=== PATIENT | female | born 1990 | race Caucasian/White ===

== ENCOUNTER → 2017-08-28 | Outpatient (CLI) | payer OTHER ==
--- NOTE | 2017-08-28 13:05 | US ---
EXAMINATION TYPE: Transabdominal DATE OF EXAM: 08/01/17 COMPARISON: NONE CLINICAL HISTORY: O44.03 Placenta previa without hemorrhage...... assess placenta, patient had US 3 d ays prior at other facility that told her she had complete previa, no bleeding EXAM PERFORMED: OBTA EXAM MEASUREMENTS: GESTATIONAL AGE / DATING Physician Established: (13 weeks/3 days) EDC: 03/02/2018 Dates by LMP: (13 weeks/3 days) EDC: 03/02/2018 Dates by First Scan: [employer] here Dates by Current Scan for: (13 weeks/6 days) EDC: 02/27/2018 MATERNAL ANATOMY Uterus: 14.2 x 10.4 x 8.5cm Right Ovary: not seen due to enlarged UT and bowel gas Left Ovary: not seen due to enlarged UT and bowel gas Post CDS / Adnexa: wnl Presence of free fluid: no Presence of corpus luteal cyst: not seen Presence of subchorionic bleed: no GESTATION / SURVEY CRL: 7.8 (13 weeks/6 days) MSD: wnl Yolk Sac (normal less than 6mm): 0 Heart Rate: 159 bpm Rhythm: Normal IUP: Live IUP Date of LMP: 05/26/2017 Beta HcG (if available): not available assess early placenta and it does appear low lying terminating approximately 1.2 cm from the internal cervical os. IMPRESSION: 1. There is a low-lying anterior placenta approximately 1.2 cm from the internal cervical os. Recomme ndation is for follow-up ultrasound after 20 weeks to determine placenta previa. 2. Single live intrauterine with a sonographic age of 13 weeks and 6 days and estimated yuly e of delivery of 02/27/2018, concordant with menstrual age.
== END | disposition home or self-care (01) ==
LOC: RADUSWWP 12:25
PROVIDERS: ATTEND Family Medicine
DX: O44.42 Low lying placenta NOS or without hemorrhage, second trimester (principal); Z3A.20 20 weeks gestation of pregnancy
CPT/HCPCS: 76801

== ENCOUNTER 2017-09-11 21:02 | Observation (INO) | payer OTHER ==
[2017-09-11] MEDS ORDERED: LORazepam 2 MG/ML INJ IV PRN ×3 (22:21→22:25)
[2017-09-11] MEDS ORDERED: CALCIUM CARBONATE 500 MG CHEWABLE PO PRN (22:21)
[2017-09-11] MEDS ORDERED: ONDANSETRON 4 MG/2 ML VIAL IVP PRN (22:21)
[2017-09-11] MEDS ORDERED: NALOXONE 0.4 MG/ML 1 ML VIAL IV PRN (22:21)
[2017-09-11] MEDS ORDERED: LACTATED RINGERS 1,000 ML IV SCH (22:30)
[2017-09-11] MEDS: PANTOPRAZOLE 40 MG TABLET PO SCH (23:46)
[2017-09-11] MEDS: LACTATED RINGERS 1,000 ML IV SCH (23:46)
[2017-09-12] MEDS: PANTOPRAZOLE 40 MG TABLET PO SCH (08:24)
[2017-09-12] MEDS: LACTATED RINGERS 1,000 ML IV SCH (12:18)
--- NOTE | 2017-09-12 15:03 | P.CN ---
Psychiatric Consult - . Consult date: 09/12/17 Consult:: 09/12/17 14:54 Patient was seen for a psych consult regarding substance abuse. The chart does not have any information regarding reason for hospitalization, lab work or other investigation. According to the nurse patient was sent here from [facility] where she was admitted following taking too many Adderall. Patient says she has been prescribed Adderall 30 mg 3 times a day for the last about 5 years for ADHD symptoms. She also said she is here in the hospital because she had an acute anxiety attack since her uncle is having cancer. Apparently she has been taking him for the doctor's appointment and other therapies. She denies any other ongoing issues. She denies symptoms of anxiety , depression, manic episodes, perceptual problems etc. She however said she has been drinking about a fifth of liquor every day and for the last week she has been drinking only 1 or 2 beers a day. She denies she had any withdrawal symptoms. 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 They have a son who is going to be 4 years old in December. She also said she has to taper off Adderall and stop drinking so that she can be there for her son, has to send him to preschool before he goes to kindergarten etc. This is a white female who was seen in her bed. She is polite and cooperative. She does not show any psychomotor agitation or retardation. Her speech is spontaneous and goal-directed. She did not tell me anything about taking too many Adderall or going to [facility]. But she insists that she wants to get better and be there for her son. She adamantly denies suicide and homicide thoughts. She also denies hallucinations and delusional thinking. She is oriented with adequate memory concentration general knowledge etc. Assessment: Alcohol use disorder severe F 10.20. 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 Suggestion: Patient is very willing to have drug/alcohol rehab in an outpatient setting. A referral for the rehab would be helpful.
[2017-09-12] MEDS ORDERED: ACETAMINOPHEN TAB 325 MG TAB PO PRN (15:59)
[2017-09-12] MEDS ORDERED: MELATONIN 3 MG TABLET PO PRN (15:59)
[2017-09-12 16:08] LABS: Basophils # (A) 0.1 k/uL (0-0.2); Basophils % (A) 1 %; Eosinophils # (A) 0.1 k/uL (0-0.7); Eosinophils % (A) 2 %; HCT 38.1 % (34.0-46.0); HGB 13.2 gm/dL (11.4-16.0); Lymphocytes # (A) 1.8 k/uL (1.0-4.8); Lymphocytes % (A) 23 %; MCH 30.7 pg (25.0-35.0); MCHC 34.6 g/dL (31.0-37.0); MCV 88.8 fL (80.0-100.0); Mean Platelet Volume 6.9; Monocytes # (A) 0.4 k/uL (0-1.0); Monocytes % (A) 5 %; Neutrophils # (A) 5.5 k/uL (1.3-7.7); Neutrophils % (A) 69 %; Platelet Count 310 k/uL (150-450); RBC 4.29 m/uL (3.80-5.40); RDW 13.5 % (11.5-15.5)
[2017-09-12 16:31] LABS: ALT 42 U/L (9-52); AST 75 U/L (14-36); Alkaline Phosphatase 83 U/L (38-126); Anion Gap 14 mmol/L; Blood Urea Nitrogen 7 mg/dL (7-17); Calcium 9.1 mg/dL (8.4-10.2); Carbon Dioxide 22 mmol/L (22-30); Chloride 104 mmol/L (98-107); Glucose 106 mg/dL (74-99); Magnesium 1.7 mg/dL (1.6-2.3); Potassium 3.5 mmol/L (3.5-5.1); Sodium 140 mmol/L (137-145); Total Bilirubin 0.5 mg/dL (0.2-1.3); Total Protein 6.2 g/dL (6.3-8.2)
--- NOTE | 2017-09-12 16:40 | HP ---
HISTORY AND PHYSICAL DATE OF SERVICE: 09/12/17. PRESENT COMPLAINT: Alcohol and Adderall overdose. HISTORY OF PRESENTING COMPLAINT: This is a 27-year-old patient who follows with Dr. Gonzalez. The patient initially presented to [facility] ER from where the patient was transferred here for psychiatric evaluation. Story was that the patient has not been sleeping for a few days and patient's boyfriend, Wagner, gave her 100 mg of Benadryl. The patient did go to sleep for a short time, then became really agitated, hyperactive, confused, psychotic. The patient had taken 5 Adderall together, then she took another 10. The patient is prescribed 90 mg 2 times a day and the note from [facility] states that the patient had a refill on 09/06/17 for 90 tablets and 18 were left and apparently some of these were sold. The patient also drinking a 5th of alcohol a day. The patient is rather tearful during the interview and she is actually able to communicate. The patient did have an 4 days ago. The patient has been drinking alcohol since high school and wants to make things right with her boyfriend. The patient states she may be slightly anxious and depressed. Denies any suicidal ideation. The patient had eaten a bit earlier today. REVIEW OF SYSTEMS: CONSTITUTIONAL: None. HEENT: None. RESPIRATORY: None. CARDIOVASCULAR: No chest pain. GASTROINTESTINAL: Denies. GENITOURINARY: None. MUSCULOSKELETAL: None. DERMATOLOGICAL, HEMATOLOGIC, LYMPHATIC: None. PSYCHIATRY: Some anxiety, depression. NEUROLOGICAL: A bit hyperactive. PAST MEDICAL HISTORY: ADHD. PAST SURGICAL HISTORY: D and C, 4 days ago. SOCIAL HISTORY: The patient lives with a 3-year-old son, Tommie, and a boyfriend, Wagner. She was drinking alcohol about a 5th a day. Also was smoking cigarettes. FAMILY HISTORY: Depression, anxiety, spina bifida. HOME MEDICATIONS: Adderall 90 mg 3 times a day. ALLERGIES: None. PHYSICAL EXAMINATION: Temperature on presentation 100.1, pulse 90, respiratory 20, blood pressure 128/86, pulse ox 99% on room air. GENERAL APPEARANCE: Average build, sitting up, tearful, anxious. EYES: Pupils equal, conjunctivae normal. HEENT: External appearance of nose and ears normal. Oral cavity normal. NECK: JVD not raised. Mass not palpable. RESPIRATORY: Effort normal, lungs fair entry. CARDIOVASCULAR: 1st and 2nd sounds normal. No edema. ABDOMEN: Soft, nontender. Liver and spleen not palpable. LYMPHATIC: No lymph node palpable in the neck or axillae. PSYCHIATRY: Alert and oriented x3. Mood and affect anxious-appearing. NEUROLOGICAL: Pupils equal. Cranial nerves grossly intact. Power and sensation grossly intact. INVESTIGATIONS: The patient's blood work from [facility] showed a BUN of 9, creatinine 1.06, potassium of 3. ASSESSMENT: 1. Acute delirium multifactorial from medications including a combination of drinking alcohol and Adderall. 2. Acute Adderall toxicity, which is manifesting as amphetamine overdose with the patient having taken 5 together, then taking another 10 together and all the symptoms of restlessness a bit of hypersomnia, tachycardia all compatible with the same. Adderall half-life is about 10 hours and some is probably lingering in the system. 3. Chronic alcohol dependence. Patient drinks a 5th of alcohol every day. 4. Patient had an 4 days ago. 5. Anxiety disorder not otherwise specified. 6. Attention deficit hyperactivity disorder. PLAN: Psychiatry Dr. Edward was consulted. At this point, the patient will be kept on telemetry. Patient tolerating a diet, drinking good fluids. Patient did get IV fluids overnight and can be discontinued. We will have the computational chemist come and talk to the patient. We will see how the patient does. The patient is prescribed Ativan p.r.n. I will see if the patient needs any further intervention by psychiatrist before she leaves. Care was discussed with the patient. Encouraged to ambulate. MMODL / IJN: [id number] /
[2017-09-12 17:51] LABS: Creatine Kinase 4668 U/L (30-135)
[2017-09-12 22:46] VITALS: PULSE 91
[2017-09-13 07:19] VITALS: BP 130/80; RESP 19; TEMP 99.2
[2017-09-13] MEDS: PANTOPRAZOLE 40 MG TABLET PO SCH (12:57)
--- NOTE | 2017-09-21 07:17 | DS ---
DISCHARGE SUMMARY DATE OF ADMISSION: 09/11/2017 DATE OF DISCHARGE: 09/13/2017 FINAL DIAGNOSES: 1. Acute delirium from the intake of medications including Adderall and alcohol. 2. Acute Adderall toxicity manifesting as amphetamine overdose picture. 3. Chronic alcohol dependence. 4. Patient had an 4 days ago. 5. Anxiety disorder, not otherwise specified. 6. History of attention deficit hyperactivity disorder. HOSPITAL COURSE: This patient was transferred here from [facility] ER for psychiatric evaluation. Patient had not been sleeping well and patient's boyfriend gave her 100 mg Benadryl and she did not go to sleep and patient took 5 tablets of Adderall and another 10. Apparently, some were also sold. The patient also had been drinking a fifth vodka a day. The patient presented with amphetamine overdose like picture. The patient did say that she wanted to make things right with her boyfriend, was regretful about what had happened. The patient was seen by Dr. Edward from Psychiatry who said the patient should follow up with outpatient rehab. The patient was doing much better by the time of discharge, tolerating a diet, up and about. ON EXAMINATION: Lungs are clear. CARDIOVASCULAR: First and second sounds normal. PSYCH: The patient is much more sober and calm. The patient's Adderall was discontinued and the patient was doing well off of that. The patient to follow up with Dr. Gonzalez as an outpatient in 3 days. The patient was talked about following up with rehab. KIRTI / GERI: [id number] /
== END 2017-09-13 17:55 | disposition home or self-care (01) ==
LOC: 4MS4W 21:44 → INTOOBSV 22:23 → OBSVTOIN 22:23 → UNDODISIN 09-13 15:03
PROVIDERS: ADMIT Hospitalist; ATTEND Hospitalist
DX: T43.621A Poisoning by amphetamines, accidental (unintentional), initial encounter (principal); T51.0X1A Toxic effect of ethanol, accidental (unintentional), initial encounter; T45.0X1A Poisoning by antiallergic and antiemetic drugs, accidental (unintentional), initial encounter; Y92.009 Unspecified place in unspecified non-institutional (private) residence as the place of occurrence of the external cause; F10.20 Alcohol dependence, uncomplicated; F41.9 Anxiety disorder, unspecified; F90.9 Attention-deficit hyperactivity disorder, unspecified type; F32.9 Major depressive disorder, single episode, unspecified; F05 Delirium due to known physiological condition; F17.210 Nicotine dependence, cigarettes, uncomplicated; Z79.899 Other long term (current) drug therapy; Z81.8 Family history of other mental and behavioral disorders
CPT/HCPCS: 96374; 80053; 82550; 83735; 85025; G0379; G0378 ×3; J2060

== ENCOUNTER 2021-01-08 18:25 | Emergency (ER) | payer OTHER ==
[2021-01-08 18:44] VITALS: BP 153/85; PULSE 103; RESP 20; TEMP 98.1
[2021-01-08] MEDS ORDERED: SODIUM CHLORIDE 0.9% 1,000 ML IV ONE (19:16)
--- NOTE | 2021-01-08 19:20 | ED ---
General Adult HPI - General Chief complaint: Recheck/Abnormal Lab/Rx Stated complaint: not sure Time Seen by Provider: 01/08/21 18:53 Source: patient, family (aunt), RN notes reviewed Mode of arrival: ambulatory Limitations: no limitations - History of Present Illness Initial comments: This is a 30-year-old female who presents to the emergency room agitated. Patient's aunt is at the bedside states that the patient lives with her uncle and she locked him out of the home. She has been ranting and raving and screaming since yesterday. She's been not acting herself. She states "I don't feel right" but cannot explain what she is feeling. She states she wants us to "check me out completely". She states that she doesn't know if she is . She denies any abdominal pain or headaches but just keeps stating "I don't feel right". She denies any trauma. She denies any medical history. Her aunt is at the bedside states that she believes that this is a mental illness. Patient states that she does have mental illness that runs in her family. She denies any drug use. She does state that she drinks a beer a day and occasionally smokes cigarettes. She denies any homicidal or suicidal ideation. -: days(s) (1) Severity scale (1-10): 0 Treatments Prior to Arrival: none - Related Data Home Medications Medication Instructions Recorded Confirmed No Known Home Medications 01/08/21 01/08/21 Allergies Allergy/AdvReac Type Severity Reaction Status Date / Time ethinyl estradiol Allergy Unknown Verified 01/08/21 20:17 [From Loestrin 24 Fe] ferrous fumarate Allergy Unknown Verified 01/08/21 20:17 [From Loestrin 24 Fe] norethindrone acetate Allergy Unknown Verified 01/08/21 20:17 [From Loestrin 24 Fe] Review of Systems ROS Statement: Those systems with pertinent positive or pertinent negative responses have been documented in the HPI. ROS Other: All systems not noted in ROS Statement are negative. Past Medical History Past Medical History: No Reported History History of Any Multi-Drug Resistant Organisms: None Reported Past Surgical History: No Surgical Hx Reported Additional Past Surgical History / Comment(s): D&C Past Anesthesia/Blood Transfusion Reactions: No Reported Reaction Past Psychological History: No Psychological Hx Reported Smoking Status: Current every day smoker, Vaper Past Alcohol Use History: None Reported Past Drug Use History: None Reported - Past Family History Mother Additional Family Medical History / Comment(s): spina bifida, depression, anxiety General Exam Limitations: altered mental status (Patient is emotionally labile, argumentative and uncooperative in triage but calm at time of assessment) General appearance: alert, in no apparent distress Head exam: Present: atraumatic, normocephalic, normal inspection Eye exam: Present: normal appearance, PERRL, EOMI. Absent: scleral icterus, conjunctival injection, periorbital swelling Pupils: Present: normal accommodation ENT exam: Present: normal exam, normal oropharynx, mucous membranes moist Neck exam: Present: normal inspection, full ROM. Absent: tenderness, meningismus, lymphadenopathy, thyromegaly Respiratory exam: Present: normal lung sounds bilaterally. Absent: respiratory distress, wheezes, rales, rhonchi, stridor, chest wall tenderness, accessory muscle use, decreased breath sounds Cardiovascular Exam: Present: normal rhythm, tachycardia, normal heart sounds. Absent: systolic murmur, diastolic murmur, rubs, gallop, clicks GI/Abdominal exam: Present: soft, normal bowel sounds. Absent: distended, tenderness, guarding, rebound, rigid Extremities exam: Present: normal inspection, full ROM, normal capillary refill. Absent: tenderness, pedal edema, joint swelling, calf tenderness Back exam: Present: normal inspection, full ROM. Absent: tenderness, CVA tenderness (R), CVA tenderness (L), muscle spasm, paraspinal tenderness, vertebral tenderness, rash noted Neurological exam: Present: alert, oriented X3, CN II-XII intact Psychiatric exam: Present: agitated, manic Skin exam: Present: warm, dry, intact, normal color. Absent: rash, cyanosis, diaphoretic, petechiae, pallor Course Vital Signs 01/08/21 18:34 Temperature 98.1 F Pulse Rate 103 H Respiratory 20 Rate Blood Pressure 153/85 O2 Sat by Pulse 96 Oximetry EKG Findings - EKG Results: EKG: sinus rhythm (Ventricular rate of 76, MS interval of .146, QRS of 0.104, QTC of 0.459) Medical Decision Making - Medical Decision Making Patient's CBC and electrolytes are within normal limits. Blood glucose is 124. Her UA is negative for nitrates or leukocyte esterase. Her urine drug screen is negative. Her alcohol level is 197. Her coronavirus swab is not detected. Her EKG shows sinus rhythm troponin is negative at 0.012. Her chest x-ray shows no acute cardiopulmonary process. She does state she is feeling better but she is still agitated and quick to temper. She was directed to follow up with [facility] mental health which she was agreeable. This is likely agitation related to a mental health issue or alcohol abuse. She denies any suicidal or homicidal ideation. Her aunt is at the bedside and will also assist her with [facility] mental health services. I did discuss this case with Dr. Pope who is agreeable to this plan of care. - Lab Data Result diagrams: 01/08/21 19:55 01/08/21 19:55 Lab Results 01/08/21 01/08/21 01/08/21 Range/Units 19:55 19:55 19:55 WBC 7.5 (3.8-10.6) k/uL RBC 4.51 (3.80-5.40) m/uL Hgb 13.3 (11.4-16.0) gm/dL Hct 38.5 (34.0-46.0) % MCV 85.2 (80.0-100.0) fL MCH 29.4 (25.0-35.0) pg MCHC 34.5 (31.0-37.0) g/dL RDW 15.3 (11.5-15.5) % Plt Count 341 (150-450) k/uL MPV 6.6 Neutrophils % 72 % Lymphocytes % 21 % Monocytes % 4 % Eosinophils % 1 % Basophils % 1 % Neutrophils # 5.4 (1.3-7.7) k/uL Lymphocytes # 1.6 (1.0-4.8) k/uL Monocytes # 0.3 (0-1.0) k/uL Eosinophils # 0.1 (0-0.7) k/uL Basophils # 0.1 (0-0.2) k/uL Sodium 142 (137-145) mmol/L Potassium 3.4 L (3.5-5.1) mmol/L Chloride 104 (98-107) mmol/L Carbon Dioxide 27 (22-30) mmol/L Anion Gap 11 mmol/L BUN 8 (7-17) mg/dL Creatinine 0.64 (0.52-1.04) mg/dL Est GFR (CKD-EPI)AfAm >90 (>60 ml/min/1.73 sqM) Est GFR (CKD-EPI)NonAf >90 (>60 ml/min/1.73 sqM) Glucose 124 H (74-99) mg/dL Calcium 8.6 (8.4-10.2) mg/dL Total Bilirubin 0.5 (0.2-1.3) mg/dL AST 75 H (14-36) U/L ALT 27 (4-34) U/L Alkaline Phosphatase 123 (38-126) U/L Troponin I (0.000-0.034) ng/mL Total Protein 7.4 (6.3-8.2) g/dL Albumin 4.2 (3.5-5.0) g/dL Urine Color Yellow Urine Appearance Clear (Clear) Urine pH 6.5 (5.0-8.0) Ur Specific Rainier 1.010 (1.001-1.035) Urine Protein 1+ H (Negative) Urine Glucose (UA) Negative (Negative) Urine Ketones Negative (Negative) Urine Blood Negative (Negative) Urine Nitrite Negative (Negative) Urine Bilirubin Negative (Negative) Urine Urobilinogen <2.0 (<2.0) mg/dL Ur Leukocyte Esterase Negative (Negative) Urine WBC 4 (0-5) /hpf Ur Squamous Epith Cells 2 (0-4) /hpf Urine Bacteria Moderate H (None) /hpf Urine Mucus Moderate H (None) /hpf Urine HCG, Qual (Not Detectd) Urine Opiates Screen Not Detected (NotDetected) Ur Oxycodone Screen Not Detected (NotDetected) Urine Methadone Screen Not Detected (NotDetected) Ur Propoxyphene Screen Not Detected (NotDetected) Ur Barbiturates Screen Not Detected (NotDetected) U Tricyclic Antidepress Not Detected (NotDetected) Ur Phencyclidine Scrn Not Detected (NotDetected) Ur Amphetamines Screen Not Detected (NotDetected) U Methamphetamines Scrn Not Detected (NotDetected) U Benzodiazepines Scrn Not Detected (NotDetected) Urine Cocaine Screen Not Detected (NotDetected) U Marijuana (THC) Screen Not Detected (NotDetected) Serum Alcohol 197 mg/dL Coronavirus (PCR) (Not Detectd) 01/08/21 01/08/21 01/08/21 Range/Units 19:55 19:55 19:55 WBC (3.8-10.6) k/uL RBC (3.80-5.40) m/uL Hgb (11.4-16.0) gm/dL Hct (34.0-46.0) % MCV (80.0-100.0) fL MCH (25.0-35.0) pg MCHC (31.0-37.0) g/dL RDW (11.5-15.5) % Plt Count (150-450) k/uL MPV Neutrophils % % Lymphocytes % % Monocytes % % Eosinophils % % Basophils % % Neutrophils # (1.3-7.7) k/uL Lymphocytes # (1.0-4.8) k/uL Monocytes # (0-1.0) k/uL Eosinophils # (0-0.7) k/uL Basophils # (0-0.2) k/uL Sodium (137-145) mmol/L Potassium (3.5-5.1) mmol/L Chloride (98-107) mmol/L Carbon Dioxide (22-30) mmol/L Anion Gap mmol/L BUN (7-17) mg/dL Creatinine (0.52-1.04) mg/dL Est GFR (CKD-EPI)AfAm (>60 ml/min/1.73 sqM) Est GFR (CKD-EPI)NonAf (>60 ml/min/1.73 sqM) Glucose (74-99) mg/dL Calcium (8.4-10.2) mg/dL Total Bilirubin (0.2-1.3) mg/dL AST (14-36) U/L ALT (4-34) U/L Alkaline Phosphatase (38-126) U/L Troponin I <0.012 (0.000-0.034) ng/mL Total Protein (6.3-8.2) g/dL Albumin (3.5-5.0) g/dL Urine Color Urine Appearance (Clear) Urine pH (5.0-8.0) Ur Specific [place]ier (1.001-1.035) Urine Protein (Negative) Urine Glucose (UA) (Negative) Urine Ketones (Negative) Urine Blood (Negative) Urine Nitrite (Negative) Urine Bilirubin (Negative) Urine Urobilinogen (<2.0) mg/dL Ur Leukocyte Esterase (Negative) Urine WBC (0-5) /hpf Ur Squamous Epith Cells (0-4) /hpf Urine Bacteria (None) /hpf Urine Mucus (None) /hpf Urine HCG, Qual Not Detected (Not Detectd) Urine Opiates Screen (NotDetected) Ur Oxycodone Screen (NotDetected) Urine Methadone Screen (NotDetected) Ur Propoxyphene Screen (NotDetected) Ur Barbiturates Screen (NotDetected) U Tricyclic Antidepress (NotDetected) Ur Phencyclidine Scrn (NotDetected) Ur Amphetamines Screen (NotDetected) U Methamphetamines Scrn (NotDetected) U Benzodiazepines Scrn (NotDetected) Urine Cocaine Screen (NotDetected) U Marijuana (THC) Screen (NotDetected) Serum Alcohol mg/dL Coronavirus (PCR) Not Detected (Not Detectd) Disposition Clinical Impression: Alcohol abuse Disposition: HOME SELF-CARE Condition: Fair Additional Instructions: Please follow-up with community mental health for continuation of care. Find a primary care doctor. Return to the emergency room with any new or worsening symptoms. He thinks contact [facility] with stopping alcohol use. Is patient prescribed a controlled substance at d/c from ED?: No Referrals: Júnior Gonzalez MD [REFERRING] - 1-2 days Frank Avery DO [REFERRING] - 1-2 days Time of Disposition: 21:22
[2021-01-08 20:08] LABS: Basophils # (A) 0.1 k/uL (0-0.2); Basophils % (A) 1 %; Eosinophils # (A) 0.1 k/uL (0-0.7); Eosinophils % (A) 1 %; HCT 38.5 % (34.0-46.0); HGB 13.3 gm/dL (11.4-16.0); Lymphocytes # (A) 1.6 k/uL (1.0-4.8); Lymphocytes % (A) 21 %; MCH 29.4 pg (25.0-35.0); MCHC 34.5 g/dL (31.0-37.0); MCV 85.2 fL (80.0-100.0); Mean Platelet Volume 6.6; Monocytes # (A) 0.3 k/uL (0-1.0); Monocytes % (A) 4 %; Neutrophils # (A) 5.4 k/uL (1.3-7.7); Neutrophils % (A) 72 %; Platelet Count 341 k/uL (150-450); RBC 4.51 m/uL (3.80-5.40); RDW 15.3 % (11.5-15.5); WBC 7.5 k/uL (3.8-10.6)
[2021-01-08 20:20] LABS: Albumin 4.2 g/dL (3.5-5.0); Anion Gap 11 mmol/L; Carbon Dioxide 27 mmol/L (22-30); Chloride 104 mmol/L (98-107); Glucose 124 mg/dL (74-99); Potassium 3.4 mmol/L (3.5-5.1); Sodium 142 mmol/L (137-145); Total Protein 7.4 g/dL (6.3-8.2)
[2021-01-08 20:22] LABS: ALT 27 U/L (4-34); AST 75 U/L (14-36); African American GFR (CKD) >90 (>60 ml/min/1.73 sqM); Alkaline Phosphatase 123 U/L (38-126); Blood Urea Nitrogen 8 mg/dL (7-17); Calcium 8.6 mg/dL (8.4-10.2); Non-African American GFR(CKD) >90 (>60 ml/min/1.73 sqM); Total Bilirubin 0.5 mg/dL (0.2-1.3)
[2021-01-08 20:31] LABS: Appearance,Urine Clear (Clear); Bacteria,Urine Moderate /hpf; Bilirubin,Urine Negative (Negative); Blood,Urine Negative (Negative); Color,Urine Yellow; Glucose,Urine (UA) Negative (Negative); Ketones,Urine Negative (Negative); Leukocyte Esterase,Urine Negative (Negative); Mucus,Urine Moderate /hpf; Nitrite,Urine Negative (Negative); PH, Urine 6.5 (5.0-8.0); Protein,Urine 1+ (Negative); Squamous Epithelial Cell,Urine 2 /hpf (0-4); Urobilinogen,Urine <2.0 mg/dL (<2.0); WBC,Urine 4 /hpf (0-5)
[2021-01-08 20:40] LABS: Cocaine Screen,Urine Not Detected (NotDetected); Phencyclidine Screen,Urine Not Detected (NotDetected); Urn Cannabinoid Scrn Not Detected (NotDetected)
[2021-01-08 20:41] LABS: Amphetamine Screen,Urine Not Detected (NotDetected); Barbiturate Screen,Urine Not Detected (NotDetected); Benzodiazepines Screen,Urine Not Detected (NotDetected); Methadone Screen, Urine Not Detected (NotDetected); Opiate Screen,Urine Not Detected (NotDetected); Oxycodone Screen, Urine Not Detected (NotDetected); Tricyclic Antidepressant,Urine Not Detected (NotDetected)
[2021-01-08 20:46] LABS: Alcohol 197 mg/dL
--- NOTE | 2021-01-08 21:16 | XR ---
EXAMINATION TYPE: XR chest 2V DATE OF EXAM: 01/08/2021 CLINICAL HISTORY: altered mental status. TECHNIQUE: Frontal and lateral view of the chest. COMPARISON: None FINDINGS: Low lung volumes. The cardiomediastinal silhouette is within normal limits for size. Pulmon sheridan vasculature is normal. There is no focal air space opacity. No pleural effusion. No pneumothorax seen. No acute displaced osseous fracture. IMPRESSION: No acute cardiopulmonary process.
== END 2021-01-08 22:00 | disposition home or self-care (01) ==
LOC: EC 18:25
DX: F10.10 Alcohol abuse, uncomplicated (principal); F17.210 Nicotine dependence, cigarettes, uncomplicated; Y90.9 Presence of alcohol in blood, level not specified
CPT/HCPCS: 36415; 80053; 84484; 85025; 81001; 81025; 80306; 87635; 71046; 99285; G0480; 80320

== ENCOUNTER 2021-01-12 14:25 | Inpatient (IN) | payer MEDICAID, OTHER ==
--- NOTE | 2021-01-12 15:07 | ED ---
General Adult HPI - General Chief complaint: Anxiety Stated complaint: Seizure Time Seen by Provider: 01/12/21 14:30 Source: patient, family, RN notes reviewed, old records reviewed Mode of arrival: wheelchair Limitations: altered mental status - History of Present Illness Initial comments: This is a 30-year-old female who presents emergency Department eating that she's anxiety attack. According to family she's been very paranoid recently and thinks people are intending to hurt her and she is also made some comments about being suicidal. Patient really isn't talking to me much because she is so anxious at this time. Patient does however deny any physical complaints. Patient denies headache patient denies numbness weakness. Patient denies any chest pain difficulty breathing shortest breath per patient denies any fever chills or cough. Family stated that she was on the ground shaking for about 15 seconds and there was no period of time she was confused after she stopped shaking. Patient didn't seem thing in the room and when I raised my voice she stopped immediately. - Related Data Home Medications Medication Instructions Recorded Confirmed Ascorbic Acid [Vitamin C] 500 mg PO DAILY 01/12/21 01/12/21 Dextroamphetamine/Amphetamine 30 mg PO TID 01/12/21 01/12/21 [Dextroamp-Amphetamin 30 mg Tab] Allergies Allergy/AdvReac Type Severity Reaction Status Date / Time ethinyl estradiol Allergy Unknown Verified 01/12/21 16:51 [From Loestrin 24 Fe] ferrous fumarate Allergy Unknown Verified 01/12/21 16:51 [From Loestrin 24 Fe] norethindrone acetate Allergy Unknown Verified 01/12/21 16:51 [From Loestrin 24 Fe] Review of Systems ROS Statement: Those systems with pertinent positive or pertinent negative responses have been documented in the HPI. ROS Other: All systems not noted in ROS Statement are negative. Past Medical History Past Medical History: No Reported History History of Any Multi-Drug Resistant Organisms: None Reported Past Surgical History: No Surgical Hx Reported Additional Past Surgical History / Comment(s): D&C Past Anesthesia/Blood Transfusion Reactions: No Reported Reaction Past Psychological History: No Psychological Hx Reported Smoking Status: Current every day smoker, Vaper Past Alcohol Use History: None Reported Past Drug Use History: None Reported - Past Family History Mother Additional Family Medical History / Comment(s): spina bifida, depression, anxiety General Exam - General Exam Comments Initial Comments: GENERAL: Patient is well-developed and well-nourished. Patient is nontoxic and well- hydrated and is in mild distress. ENT: Neck is soft and supple. No significant lymphadenopathy is noted. Oropharynx is clear. Moist mucous membranes. Neck has full range of motion without eliciting any pain. EYES: The sclera were anicteric and conjunctiva were pink and moist. Extraocular movements were intact and pupils were equal round and reactive to light. Eyelids were unremarkable. PULMONARY: Unlabored respirations. Good breath sounds bilaterally. No audible rales rhonchi or wheezing was noted. CARDIOVASCULAR: There is a regular rate and rhythm without any murmurs gallops or rubs. ABDOMEN: Soft and nontender with normal bowel sounds. SKIN: Skin is clear with no lesions or rashes and otherwise unremarkable. NEUROLOGIC: Patient is alert and oriented x3. Cranial nerves II through XII are grossly intact. Motor and sensory are also intact. Normal speech, volume and content. Symmetrical smile. MUSCULOSKELETAL: Normal extremities with adequate strength and full range of motion. LYMPHATICS: No significant lymphadenopathy is noted PSYCHIATRIC: Patient is extremely anxious and not answering most questions. Limitations: altered mental status Course Vital Signs 01/12/21 14:27 Temperature 98.7 F Pulse Rate 129 H Respiratory 26 H Rate Blood Pressure 139/94 O2 Sat by Pulse 96 Oximetry Medical Decision Making - Medical Decision Making Spoke with Dr. Foster he wanted the patient after CAT scan and lab work and stated that if these were negative he would admit her to the psychiatric facil [facility]. Patient again was up and around walking to the bathroom and conversing normally at this time and this was at 9 PM - Lab Data Result diagrams: 01/13/21 07:02 01/13/21 07:02 Lab Results 01/12/21 01/12/21 01/12/21 Range/Units 14:56 14:56 15:31 WBC (3.8-10.6) k/uL RBC (3.80-5.40) m/uL Hgb (11.4-16.0) gm/dL Hct (34.0-46.0) % MCV (80.0-100.0) fL MCH (25.0-35.0) pg MCHC (31.0-37.0) g/dL RDW (11.5-15.5) % Plt Count (150-450) k/uL MPV Neutrophils % % Lymphocytes % % Monocytes % % Eosinophils % % Basophils % % Neutrophils # (1.3-7.7) k/uL Lymphocytes # (1.0-4.8) k/uL Monocytes # (0-1.0) k/uL Eosinophils # (0-0.7) k/uL Basophils # (0-0.2) k/uL Sodium (137-145) mmol/L Potassium (3.5-5.1) mmol/L Chloride (98-107) mmol/L Carbon Dioxide (22-30) mmol/L Anion Gap mmol/L BUN (7-17) mg/dL Creatinine (0.52-1.04) mg/dL Est GFR (CKD-EPI)AfAm (>60 ml/min/1.73 sqM) Est GFR (CKD-EPI)NonAf (>60 ml/min/1.73 sqM) Glucose (74-99) mg/dL Calcium (8.4-10.2) mg/dL Magnesium (1.6-2.3) mg/dL Total Bilirubin (0.2-1.3) mg/dL AST (14-36) U/L ALT (4-34) U/L Alkaline Phosphatase (38-126) U/L Total Protein (6.3-8.2) g/dL Albumin (3.5-5.0) g/dL HCG, Quant <2.4 mIU/mL Urine Opiates Screen Not Detected (NotDetected) Ur Oxycodone Screen Not Detected (NotDetected) Urine Methadone Screen Not Detected (NotDetected) Ur Propoxyphene Screen Not Detected (NotDetected) Ur Barbiturates Screen Not Detected (NotDetected) U Tricyclic Antidepress Not Detected (NotDetected) Ur Phencyclidine Scrn Not Detected (NotDetected) Ur Amphetamines Screen Not Detected (NotDetected) U Methamphetamines Scrn Not Detected (NotDetected) U Benzodiazepines Scrn Not Detected (NotDetected) Urine Cocaine Screen Not Detected (NotDetected) U Marijuana (THC) Screen Not Detected (NotDetected) Serum Alcohol <10 mg/dL Coronavirus (PCR) (Not Detectd) 01/12/21 01/12/21 01/12/21 Range/Units 20:17 20:17 20:17 WBC 13.3 H (3.8-10.6) k/uL RBC 4.43 (3.80-5.40) m/uL Hgb 12.9 (11.4-16.0) gm/dL Hct 37.5 (34.0-46.0) % MCV 84.7 (80.0-100.0) fL MCH 29.2 (25.0-35.0) pg MCHC 34.4 (31.0-37.0) g/dL RDW 15.5 (11.5-15.5) % Plt Count 295 (150-450) k/uL MPV 7.1 Neutrophils % 84 % Lymphocytes % 10 % Monocytes % 5 % Eosinophils % 0 % Basophils % 0 % Neutrophils # 11.2 H (1.3-7.7) k/uL Lymphocytes # 1.3 (1.0-4.8) k/uL Monocytes # 0.6 (0-1.0) k/uL Eosinophils # 0.0 (0-0.7) k/uL Basophils # 0.0 (0-0.2) k/uL Sodium 135 L (137-145) mmol/L Potassium 2.7 L* (3.5-5.1) mmol/L Chloride 100 (98-107) mmol/L Carbon Dioxide 25 (22-30) mmol/L Anion Gap 10 mmol/L BUN 7 (7-17) mg/dL Creatinine 0.77 (0.52-1.04) mg/dL Est GFR (CKD-EPI)AfAm >90 (>60 ml/min/1.73 sqM) Est GFR (CKD-EPI)NonAf >90 (>60 ml/min/1.73 sqM) Glucose 119 H (74-99) mg/dL Calcium 9.3 (8.4-10.2) mg/dL Magnesium 1.9 (1.6-2.3) mg/dL Total Bilirubin 1.8 H (0.2-1.3) mg/dL AST 98 H (14-36) U/L ALT 31 (4-34) U/L Alkaline Phosphatase 127 H (38-126) U/L Total Protein 7.2 (6.3-8.2) g/dL Albumin 4.2 (3.5-5.0) g/dL HCG, Quant mIU/mL Urine Opiates Screen (NotDetected) Ur Oxycodone Screen (NotDetected) Urine Methadone Screen (NotDetected) Ur Propoxyphene Screen (NotDetected) Ur Barbiturates Screen (NotDetected) U Tricyclic Antidepress (NotDetected) Ur Phencyclidine Scrn (NotDetected) Ur Amphetamines Screen (NotDetected) U Methamphetamines Scrn (NotDetected) U Benzodiazepines Scrn (NotDetected) Urine Cocaine Screen (NotDetected) U Marijuana (THC) Screen (NotDetected) Serum Alcohol mg/dL Coronavirus (PCR) Not Detected (Not Detectd) Disposition Clinical Impression: Psychosis, Acute anxiety, Suicidal ideations Disposition: ADMITTED IP TO THIS HOSP Is patient prescribed a controlled substance at d/c from ED?: No Time of Disposition: 20:21
[2021-01-12 15:57] LABS: Amphetamine Screen,Urine Not Detected (NotDetected); Barbiturate Screen,Urine Not Detected (NotDetected); Benzodiazepines Screen,Urine Not Detected (NotDetected); Cocaine Screen,Urine Not Detected (NotDetected); Methadone Screen, Urine Not Detected (NotDetected); Opiate Screen,Urine Not Detected (NotDetected); Oxycodone Screen, Urine Not Detected (NotDetected); Phencyclidine Screen,Urine Not Detected (NotDetected); Tricyclic Antidepressant,Urine Not Detected (NotDetected); Urn Cannabinoid Scrn Not Detected (NotDetected)
[2021-01-12 20:28] LABS: Basophils % (A) 0 %; Eosinophils % (A) 0 %; HCT 37.5 % (34.0-46.0); HGB 12.9 gm/dL (11.4-16.0); Lymphocytes # (A) 1.3 k/uL (1.0-4.8); Lymphocytes % (A) 10 %; MCH 29.2 pg (25.0-35.0); MCHC 34.4 g/dL (31.0-37.0); MCV 84.7 fL (80.0-100.0); Mean Platelet Volume 7.1; Monocytes # (A) 0.6 k/uL (0-1.0); Monocytes % (A) 5 %; Neutrophils # (A) 11.2 k/uL (1.3-7.7); Neutrophils % (A) 84 %; Platelet Count 295 k/uL (150-450); RBC 4.43 m/uL (3.80-5.40); RDW 15.5 % (11.5-15.5); WBC 13.3 k/uL (3.8-10.6)
[2021-01-12 20:37] LABS: ALT 31 U/L (4-34); AST 98 U/L (14-36); African American GFR (CKD) >90 (>60 ml/min/1.73 sqM); Albumin 4.2 g/dL (3.5-5.0); Alkaline Phosphatase 127 U/L (38-126); Anion Gap 10 mmol/L; Blood Urea Nitrogen 7 mg/dL (7-17); Calcium 9.3 mg/dL (8.4-10.2); Carbon Dioxide 25 mmol/L (22-30); Chloride 100 mmol/L (98-107); Glucose 119 mg/dL (74-99); Magnesium 1.9 mg/dL (1.6-2.3); Non-African American GFR(CKD) >90 (>60 ml/min/1.73 sqM); Sodium 135 mmol/L (137-145); Total Bilirubin 1.8 mg/dL (0.2-1.3); Total Protein 7.2 g/dL (6.3-8.2)
[2021-01-12 20:51] LABS: Potassium 2.7 mmol/L (3.5-5.1)
--- NOTE | 2021-01-12 20:51 | CT ---
EXAMINATION TYPE: CT brain wo con DATE OF EXAM: 01/12/2021 COMPARISON: None HISTORY: ams, seizure CT DLP: 1149.4 mGycm Automated exposure control for dose reduction was used. Ventricles have normal size. There is no mass effect nor midline shift. There is no sign of intracran ial hemorrhage. The calvarium is intact. IMPRESSION: Negative unenhanced head CT scan.
[2021-01-12] MEDS ORDERED: POTASSIUM CHLORIDE ER 20 MEQ TAB.ER PO STA (20:52)
[2021-01-12] MEDS ORDERED: MAGNESIUM HYDROXIDE 2,400 MG/10 ML CUP PO PRN (21:21)
[2021-01-12] MEDS ORDERED: MAG HYDROX/AL HYDROX/SIMETH 30 ML CUP PO PRN (21:21)
[2021-01-12] MEDS ORDERED: HALOPERIDOL LACTATE 5 MG/ML 1 ML VIAL IM PRN (21:30)
[2021-01-12] MEDS ORDERED: haloperidoL 5 MG TAB PO PRN (21:30)
[2021-01-12] MEDS ORDERED: LORazepam 2 MG/ML INJ IM PRN (21:30)
[2021-01-12 22:49] VITALS: TEMP 98.5
[2021-01-12] MEDS ORDERED: LORazepam 1 MG TAB ONE (23:37)
--- NOTE | 2021-01-13 03:34 | P.MDCNMH ---
History of Present Illness H&P Date: 01/12/21 Chief Complaint: medical eval 30 year old female with depression brought in by family due to seizure like activity , depression , and paranoid ideation. patient does not share much regarding her psych history with me. she quit smoking and was proud of that, however, she started smoking again over past couple days, she admits to using hallucinating mushrooms, last time was 2 weeks ago ,and since then she has not felt normal . since then she has been feeling anxious with episodes of panic attacks. she reports diarrhea non bloody , however, so recurrent that its soiling her clothes , no recent travel, but claims that her uncle is having a similar diarrhea. she has no history of C diff, and not aware if her uncle does , she denies any recent hospital stay or using antibiotics. she seems to have had another seizure like activity in the ED, was aborted by redirecting her , CT of brain was unremarkable. ED doc did not think it was a real seizure.patient seemed to be fine after the episode. Review of Systems Pertinent positives as noted in HPI. All other systems were reviewed and are negative Past Medical History Past Medical History: No Reported History History of Any Multi-Drug Resistant Organisms: None Reported Past Surgical History: No Surgical Hx Reported Additional Past Surgical History / Comment(s): D&C Past Anesthesia/Blood Transfusion Reactions: No Reported Reaction Past Psychological History: No Psychological Hx Reported Smoking Status: Current every day smoker, Vaper Past Alcohol Use History: None Reported Past Drug Use History: None Reported - Past Family History Mother Additional Family Medical History / Comment(s): spina bifida, depression, anxiety Medications and Allergies Home Medications Medication Instructions Recorded Confirmed Type Ascorbic Acid [Vitamin C] 500 mg PO DAILY 01/12/21 01/12/21 History Dextroamphetamine/Amphetamine 30 mg PO TID 01/12/21 01/12/21 History [Dextroamp-Amphetamin 30 mg Tab] Allergies Allergy/AdvReac Type Severity Reaction Status Date / Time ethinyl estradiol Allergy Unknown Verified 01/12/21 16:51 [From Loestrin 24 Fe] ferrous fumarate Allergy Unknown Verified 01/12/21 16:51 [From Loestrin 24 Fe] norethindrone acetate Allergy Unknown Verified 01/12/21 16:51 [From Loestrin 24 Fe] Physical Exam Vitals: Vital Signs Temp Pulse Pulse Resp BP BP Pulse Ox 01/12/21 22:45 98.5 F 86 18 137/66 01/12/21 14:27 98.7 F 129 H 26 H 139/94 96 Intake and Output 01/12/21 01/12/21 01/13/21 14:59 22:59 06:59 Other: Weight 86.183 kg 94 kg Constitutional: No acute distress, conversant, pleasant Eyes: Anicteric sclerae, moist conjunctiva, Pupils equal round reactive to light ENMT: NC/AT Oropharynx clear, no erythema, or exudates Neck: Supple, FROM, no masses, or JVD No carotid bruits No thyromegaly Lungs: Clear to auscultation Clear to percussion Normal respiratory effort, no accessory muscle use Cardiovascular: Heart regular in rate and rhythm, No murmurs, gallops, or rubs No peripheral edema Abdominal: Soft Nontender, no guarding, rebound or rigidity Abdomen moving with respiration Normoactive bowel sounds No hepatomegaly, No splenomegaly No palpable mass No abdominal wall hernia noted Skin: Normal temperature, tone, texture, turgor No induration No subcutaneous nodules No rash, lesions No ulcers Extremities: No digital cyanosis No clubbing Pedal pulses intact and symmetrical Radial pulses intact and symmetrical No calf tenderness Psychiatric: Alert and oriented to person, place and time Neuro Muscles Strength 5/5 in all 4 extremities Sensation to light touch grossly present throughout Cranial nerves II-XII grossly intact No focal sensory deficits Lymphatics: no palpable cervical or supraclavicular , or inguinal lymph nodes Cranial Nerve Examination - Cranial Nerves Cranial Nerve II- Optic: Intact Cranial Nerve III- Oculomotor: Intact Cranial Nerve IV- Trochlear: Intact Cranial Nerve V- Trigeminal: Intact Cranial Nerve - Abducens: Intact Cranial Nerve VII- Facial: Intact Cranial Nerve VIII- Auditory: Intact Cranial Nerve IX- Glossopharyngeal: Intact Cranial Nerve X- Vagus: Intact Cranial Nerve XI- Accessory: Intact Cranial Nerve XII- Hypoglossal: Intact Results CBC & Chem 7: 01/12/21 20:17 01/12/21 20:17 Labs: Abnormal Lab Results - Last 24 Hours (Table) 01/12/21 01/12/21 Range/Units 20:17 20:17 WBC 13.3 H (3.8-10.6) k/uL Neutrophils # 11.2 H (1.3-7.7) k/uL Sodium 135 L (137-145) mmol/L Potassium 2.7 L* (3.5-5.1) mmol/L Glucose 119 H (74-99) mg/dL Total Bilirubin 1.8 H (0.2-1.3) mg/dL AST 98 H (14-36) U/L Alkaline Phosphatase 127 H (38-126) U/L Assessment and Plan Assessment: acute diarrhea stool testing rule out infectious causes check lipase check C diff anxiety , depression paranoidideation management per psych follow up labs chronic heavy alcohol use monitor for alcohol withdrawal syndrome thiamine benzo per CIWA seizure precautions Thank you for allowing us to participate in the care of this patient. We will follow peripherally. Do not hesitate to contact us with questions. Someone can be reached from the [facility] hospitalist group at all hours of the day at [phone].
[2021-01-13] MEDS ORDERED: POTASSIUM BICARBONATE/CIT AC 20 MEQ TABLET.EFF PO ONE (04:00)
[2021-01-13 08:23] LABS: Basophils # (A) 0.1 k/uL (0-0.2); Basophils % (A) 1 %; Eosinophils # (A) 0.1 k/uL (0-0.7); Eosinophils % (A) 1 %; HCT 39.3 % (34.0-46.0); HGB 13.2 gm/dL (11.4-16.0); Lymphocytes # (A) 1.7 k/uL (1.0-4.8); Lymphocytes % (A) 20 %; MCH 29.8 pg (25.0-35.0); MCHC 33.5 g/dL (31.0-37.0); Mean Platelet Volume 7.3; Monocytes # (A) 0.5 k/uL (0-1.0); Monocytes % (A) 5 %; Neutrophils # (A) 6.3 k/uL (1.3-7.7); Neutrophils % (A) 72 %; Platelet Count 292 k/uL (150-450); RBC 4.42 m/uL (3.80-5.40); RDW 15.8 % (11.5-15.5); WBC 8.8 k/uL (3.8-10.6)
[2021-01-13 08:34] LABS: ALT 38 U/L (4-34); AST 128 U/L (14-36); African American GFR (CKD) >90 (>60 ml/min/1.73 sqM); Alkaline Phosphatase 113 U/L (38-126); Anion Gap 9 mmol/L; Blood Urea Nitrogen 8 mg/dL (7-17); Calcium 9.6 mg/dL (8.4-10.2); Carbon Dioxide 30 mmol/L (22-30); Chloride 99 mmol/L (98-107); Glucose 100 mg/dL (74-99); Lipase 83 U/L (23-300); Magnesium 2.1 mg/dL (1.6-2.3); Non-African American GFR(CKD) >90 (>60 ml/min/1.73 sqM); Potassium 3.4 mmol/L (3.5-5.1); Sodium 138 mmol/L (137-145); Total Bilirubin 1.6 mg/dL (0.2-1.3); Total Protein 6.9 g/dL (6.3-8.2)
[2021-01-13] MEDS: NICOTINE 14MG/24HR PATCH TRANSDERM SCH (08:51)
[2021-01-13] MEDS: ASCORBIC ACID 500 MG TAB PO SCH (08:51)
[2021-01-13] MEDS: LORazepam 1 MG TAB PO PRN ×2 (08:53→17:15)
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
[2021-01-13 12:42] LABS: Hemoglobin A1C 5.2 % (4.0-6.0)
[2021-01-13] MEDS: ACETAMINOPHEN TAB 325 MG TAB PO PRN ×2 (13:21→21:05)
[2021-01-13 17:02] VITALS: RESP 16
[2021-01-13] MEDS ORDERED: IBUPROFEN 600 MG TAB PO PRN (17:06)
[2021-01-13] MEDS ORDERED: QUEtiapine 25 MG TAB PO SCH (21:00)
[2021-01-13 23:43] LABS: Chol/HDL Ratio 2.39; Cholesterol 177 mg/dL (0-200); LDL Cholesterol,Calculated 86.8 mg/dL (0.0-131.0)
[2021-01-14] MEDS: ASCORBIC ACID 500 MG TAB PO SCH (08:31)
[2021-01-14] MEDS: NICOTINE 14MG/24HR PATCH TRANSDERM SCH (08:31)
[2021-01-14 08:35] VITALS: BP 136/79; PULSE 86
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
== END 2021-01-14 13:17 | disposition home or self-care (01) | DRG 885 ==
LOC: EC 14:25 → 3MHU 21:13
PROVIDERS: ADMIT Psychiatry & Neurology Psychiatry; ATTEND Psychiatry & Neurology Psychiatry
DX: F23 Brief psychotic disorder (principal); R45.851 Suicidal ideations; R56.9 Unspecified convulsions; F19.10 Other psychoactive substance abuse, uncomplicated; Z20.822 Contact with and (suspected) exposure to COVID-19; F10.10 Alcohol abuse, uncomplicated; F16.90 Hallucinogen use, unspecified, uncomplicated; F41.0 Panic disorder [episodic paroxysmal anxiety]; F43.10 Post-traumatic stress disorder, unspecified; E87.6 Hypokalemia; R25.1 Tremor, unspecified; F90.9 Attention-deficit hyperactivity disorder, unspecified type; Z79.899 Other long term (current) drug therapy; Z62.810 Personal history of physical and sexual abuse in childhood; Z56.0 Unemployment, unspecified; Z88.8 Allergy status to other drugs, medicaments and biological substances; Z81.8 Family history of other mental and behavioral disorders; Z82.79 Family history of other congenital malformations, deformations and chromosomal abnormalities; Z81.1 Family history of alcohol abuse and dependence
CPT/HCPCS: 36415; 70450; 80053; 80061; 80306; 80320; 83036; 83690; 83735; 84443; 84702; 85025; 87635; 99285

== ENCOUNTER 2022-12-13 11:47 | Observation (INO) | payer OTHER ==
--- NOTE | 2022-12-13 12:33 | ED ---
Abdominal Pain HPI - General Source: patient Mode of arrival: ambulatory Limitations: no limitations <Leonela Rangel - Last Filed: 12/13/22 12:18> <Eric Cutler - Last Filed: 12/13/22 18:52> - General Chief Complaint: Abdominal Pain Stated Complaint: vomiting Time Seen by Provider: 12/13/22 12:20 - History of Present Illness Initial Comments: Patient is a 32-year-old female presents in the emergency room with ongoing intermittent abdominal pain in the right upper quadrant which previously waxed and wane and change with positions but over the last 24 hours has been severe 10 out of 10 without any improvement with position changes. She also reports associated cough ground emesis that began this morning. (Leonela Rangel) This is a 32-year-old female with a past medical history including chronic alcoholism presents emergency Department with her friend for increasing weak ness, nausea, vomiting as well as an episode of small amount of blood in her vomit today. The patient stated that she does drink approximately one and a half pints of liquor per day and stated that she has been drinking "time" over the last several months. The patient noted that she had yelling in her eyes and because her friend was concerned, brought her into the emergency department for evaluation. On arrival, the patient stated that she has not eaten full meal the last 3 days and has been dehydrated. The patient stated that she does want to quit alcohol but stated that she needs to figure out why she is so weak and shaking now. The patient denied any acute pain or distress however was resting in bed comfortably. (Eric Cutler) - Related Data Home Medications Medication Instructions Recorded Confirmed Omeprazole 20 mg PO DAILY 12/13/22 12/13/22 Allergies Allergy/AdvReac Type Severity Reaction Status Date / Time ethinyl estradiol Allergy Unknown Verified 12/13/22 16:02 [From Loestrin 24 Fe] ferrous fumarate Allergy Unknown Verified 12/13/22 16:02 [From Loestrin 24 Fe] norethindrone acetate Allergy Unknown Verified 12/13/22 16:02 [From Loestrin 24 Fe] Review of Systems ROS Other: All systems not noted in ROS Statement are negative. <Leonela Rangel - Last Filed: 12/13/22 12:18> ROS Other: All systems not noted in ROS Statement are negative. <Eric Cutler - Last Filed: 12/13/22 18:52> ROS Statement: Those systems with pertinent positive or pertinent negative responses have been documented in the HPI. Past Medical History Past Medical History: GERD/Reflux History of Any Multi-Drug Resistant Organisms: None Reported Past Surgical History: No Surgical Hx Reported Additional Past Surgical History / Comment(s): D&C Past Anesthesia/Blood Transfusion Reactions: No Reported Reaction Past Psychological History: No Psychological Hx Reported Smoking Status: Never smoker Past Alcohol Use History: Daily Past Drug Use History: None Reported - Past Family History Mother Additional Family Medical History / Comment(s): spina bifida, depression, anxiety <Leonela Rangel - Last Filed: 12/13/22 12:18> General Exam Limitations: no limitations <Leonela Rangel - Last Filed: 12/13/22 12:18> Limitations: no limitations General appearance: alert, in no apparent distress Head exam: Present: atraumatic, normocephalic, normal inspection Eye exam: Present: PERRL, EOMI, scleral icterus Pupils: Present: normal accommodation ENT exam: Present: normal exam, normal oropharynx, mucous membranes moist Neck exam: Present: normal inspection, full ROM Respiratory exam: Present: normal lung sounds bilaterally Cardiovascular Exam: Present: regular rate, normal rhythm, normal heart sounds GI/Abdominal exam: Present: soft, tenderness (RUQ tenderness), normal bowel sounds, organomegaly (Hepatomegaly) Extremities exam: Present: normal inspection, full ROM Back exam: Present: normal inspection, full ROM Neurological exam: Present: alert, oriented X3, CN II-XII intact Psychiatric exam: Present: normal affect, normal mood Skin exam: Present: warm, dry <Eric Cutler - Last Filed: 12/13/22 18:52> Course Vital Signs 12/13/22 12/13/22 12:10 16:11 Temperature 97.8 F Pulse Rate 90 92 Respiratory 16 18 Rate Blood Pressure 168/107 158/91 O2 Sat by Pulse 98 96 Oximetry Medical Decision Making - Lab Data Result diagrams: 12/13/22 12:31 12/13/22 12:31 <Eric Cutler - Last Filed: 12/13/22 18:52> - Medical Decision Making Was pt. sent in by a medical professional or institution (NAVA Peña, OFFICE SERVICES COORDINATOR, urgent care, hospital, or care home...) When possible be specific @ -No Did you speak to anyone other than the patient for history (EMS, parent, family, police, friend...)? What history was obtained from this source @ -No Did you review nursing and triage notes (agree or disagree)? Why? @ -I reviewed and agree with nursing and triage notes Were old charts reviewed (outside hosp., previous admission, EMS record, old EKG, old radiological studies, urgent care reports/EKG's, care home records)? Report findings @ -No old charts were reviewed Differential Diagnosis (chest pain, altered mental status, abdominal pain women, abdominal pain men, vaginal bleeding, weakness, fever, dyspnea, syncope, hea dache, dizziness, GI bleed, back pain, seizure, CVA, palpatations, mental health)? @ -Acute hepatitis, cirrhosis, EtOH intoxication, EtOH withdrawal EKG interpreted by me (3pts min.). @ -As above X-rays interpreted by me (1pt min.). @ -None done CT interpreted by me (1pt min.). @ -CT abdomen and pelvis with contrast was obtained was interpreted by myself showing severe hepatic steatosis with recanalization of the umbilical vein. Radiologist recommended correlation with laboratory workup and cannot is goodor developing cirrhosis. There was hepatosplenomegaly. There was colonic diverticulosis without evidence of acute diverticulitis. U/S interpreted by me (1pt. min.). @ -Limited ultrasound was obtained and was interpreted by myself showing hepatomegaly with diffuse coarse heterogeneous echogenic appearance consistent with severe hepatic steatosis on CT What testing was considered but not performed or refused? (CT, X-rays, U/S, labs)? Why? @ -None What meds were considered but not given or refused? Why? @ -None Did you discuss the management of the patient with other professionals (professionals i.e. NAVA Peña, OFFICE SERVICES COORDINATOR, lab, RT, psych nurse, criminal justice social worker, petroleum production engineer, teacher, third officer, rehabilitation case coordinator)? Give summary @ -Yes, admitting team, Susan Chris was contacted for inpatient admission. Was smoking cessation discussed for >3mins.? @ -No Was critical care preformed (if so, how long)? @ -No Were there social determinants of health that impacted care today? How? (Homelessness, low income, unemployed, alcoholism, drug addiction, transportation, low edu. Level, literacy, decrease access to med. care, assisted, rehab)? @ -Chronic alcoholism Was there de-escalation of care discussed even if they declined (Discuss DNR or withdrawal of care, Hospice)? DNR status @ -No What co-morbidities impacted this encounter? (DM, HTN, Smoking, COPD, CAD, Cancer, CVA, ARF, Chemo, Hep., AIDS, mental health diagnosis, sleep apnea, morbid obesity)? @ -None Was patient admitted / discharged? Hospital course, mention meds given and route, prescriptions, significant lab abnormalities, going to OR and other pertinent info. @ -The patient was seen and evaluated emergency department. Physical exam, the patient was resting in bed without any acute distress. Vital signs admission we re stable. Due to the nature the patient's complaints, laboratory workup as well as an ultrasound of the right upper quadrant and computed tomography scan was obtained. All times were consistent with developing cirrhosis however the patient's laboratory workup was significant for a bilirubin of 8.3 with other elevations of her liver function. Due to this in the setting of the patient's physical exam findings and right upper quadrant abdominal pain, the patient will be admitted for further evaluation with gastric neurology on consult. The patient was agreeable to this plan and was admitted in stable condition. Undiagnosed new problem with uncertain prognosis? @ -No Drug Therapy requiring intensive monitoring for toxicity (Heparin, Nitro, Insulin, Cardizem)? @ -No Were any procedures done? @ -No Diagnosis/symptom? @ -Bilirubinemia, evolving cirrhosis, elevated transaminases, chronic alcoholism Acute, or Chronic, or Acute on Chronic? @ -Acute on chronic Uncomplicated (without systemic symptoms) or Complicated (systemic symptoms)? @ -Complicated Side effects of treatment? @ -No Exacerbation, Progression, or Severe Exacerbation? @ -No Poses a threat to life or bodily function? How? (Chest pain, USA, DC, pneumonia, PE, COPD, DKA, ARF, appy, cholecystitis, CVA, Diverticulitis, Homicidal, Suicidal, threat to staff... and all critical care pts) @ -Yes, continued symptoms can lead to permanent damage and possible . (Eric Cutler) - Lab Data Lab Results 12/13/22 12/13/2223 Range/Units 12:31 12:31 12:31 WBC 4.6 (3.8-10.6) k/uL RBC 3.69 L (3.80-5.40) m/uL Hgb 12.6 (11.4-16.0) gm/dL Hct 36.9 (34.0-46.0) % MCV 100.0 (80.0-100.0) fL MCH 34.2 (25.0-35.0) pg MCHC 34.2 (31.0-37.0) g/dL RDW 17.0 H (11.5-15.5) % Plt Count 140 L (150-450) k/uL MPV 9.0 Neutrophils % 71 % Lymphocytes % 16 % Monocytes % 8 % Eosinophils % 2 % Basophils % 1 % Neutrophils # 3.3 (1.3-7.7) k/uL Lymphocytes # 0.8 L (1.0-4.8) k/uL Monocytes # 0.4 (0-1.0) k/uL Eosinophils # 0.1 (0-0.7) k/uL Basophils # 0.1 (0-0.2) k/uL Anisocytosis Slight Macrocytosis Slight PT 12.9 H (9.0-12.0) sec INR 1.3 H (<1.2) APTT 25.8 (22.0-30.0) sec Sodium 135 L (137-145) mmol/L Potassium 3.3 L (3.5-5.1) mmol/L Chloride 94 L (98-107) mmol/L Carbon Dioxide 24 (22-30) mmol/L Anion Gap 17 mmol/L BUN 4 L (7-17) mg/dL Creatinine 0.60 (0.52-1.04) mg/dL Est GFR (CKD-EPI)AfAm >90 (>60 ml/min/1.73 sqM) Est GFR (CKD-EPI)NonAf >90 (>60 ml/min/1.73 sqM) Glucose 140 H (74-99) mg/dL Calcium 9.0 (8.4-10.2) mg/dL Total Bilirubin 8.3 H (0.2-1.3) mg/dL AST 364 H (14-36) U/L ALT 75 H (4-34) U/L Alkaline Phosphatase 220 H (38-126) U/L Troponin I (0.000-0.034) ng/mL Total Protein 8.3 H (6.3-8.2) g/dL Albumin 4.5 (3.5-5.0) g/dL Amylase 41 (30-110) U/L Lipase 162 (23-300) U/L Urine Color Urine Appearance (Clear) Urine pH (5.0-8.0) Ur Specific [place] (1.001-1.035) Urine Protein (Negative) Urine Glucose (UA) (Negative) Urine Ketones (Negative) Urine Blood (Negative) Urine Nitrite (Negative) Urine Bilirubin (Negative) Urine Urobilinogen (<2.0) mg/dL Ur Leukocyte Esterase (Negative) Urine RBC (0-5) /hpf Urine WBC (0-5) /hpf Ur Squamous Epith Cells (0-4) /hpf Urine Bacteria (None) /hpf Hyaline Casts (0-2) /lpf Granular Casts (0) /lpf Urine Mucus (None) /hpf Urine HCG, Qual (Not Detectd) 12/13/22 12/13/22 12/13/22 Range/Units 12:31 12:40 12:40 WBC (3.8-10.6) k/uL RBC (3.80-5.40) m/uL Hgb (11.4-16.0) gm/dL Hct (34.0-46.0) % MCV (80.0-100.0) fL MCH (25.0-35.0) pg MCHC (31.0-37.0) g/dL RDW (11.5-15.5) % Plt Count (150-450) k/uL MPV Neutrophils % % Lymphocytes % % Monocytes % % Eosinophils % % Basophils % % Neutrophils # (1.3-7.7) k/uL Lymphocytes # (1.0-4.8) k/uL Monocytes # (0-1.0) k/uL Eosinophils # (0-0.7) k/uL Basophils # (0-0.2) k/uL Anisocytosis Macrocytosis PT (9.0-12.0) sec INR (<1.2) APTT (22.0-30.0) sec Sodium (137-145) mmol/L Potassium (3.5-5.1) mmol/L Chloride (98-107) mmol/L Carbon Dioxide (22-30) mmol/L Anion Gap mmol/L BUN (7-17) mg/dL Creatinine (0.52-1.04) mg/dL Est GFR (CKD-EPI)AfAm (>60 ml/min/1.73 sqM) Est GFR (CKD-EPI)NonAf (>60 ml/min/1.73 sqM) Glucose (74-99) mg/dL Calcium (8.4-10.2) mg/dL Total Bilirubin (0.2-1.3) mg/dL AST (14-36) U/L ALT (4-34) U/L Alkaline Phosphatase (38-126) U/L Troponin I <0.012 (0.000-0.034) ng/mL Total Protein (6.3-8.2) g/dL Albumin (3.5-5.0) g/dL Amylase (30-110) U/L Lipase (23-300) U/L Urine Color Dark Brown Urine Appearance Cloudy H (Clear) Urine pH 6.5 (5.0-8.0) Ur Specific [place] 1.028 (1.001-1.035) Urine Protein 2+ H (Negative) Urine Glucose (UA) Negative (Negative) Urine Ketones Trace H (Negative) Urine Blood Small H (Negative) Urine Nitrite Positive H (Negative) Urine Bilirubin 3+ H (Negative) Urine Urobilinogen 4.0 (<2.0) mg/dL Ur Leukocyte Esterase Moderate H (Negative) Urine RBC 1 (0-5) /hpf Urine WBC 81 H (0-5) /hpf Ur Squamous Epith Cells 10 H (0-4) /hpf Urine Bacteria Many H (None) /hpf Hyaline Casts 12 H (0-2) /lpf Granular Casts 48 (0) /lpf Urine Mucus Many H (None) /hpf Urine HCG, Qual Not Detected (Not Detectd) - EKG Data EKG Comments: An EKG was obtained and was interpreted by myself showing a rate of 85, NC interval 100, QS duration 101 and QTC of 411. This EKG showed a normal sinus rhythm with a short NC interval. There was however no ST segment elevation or depression noted. (Eric Cutler) Disposition <Claire,Leonela - Last Filed: 12/13/22 12:18> Is patient prescribed a controlled substance at d/c from ED?: No Time of Disposition: 18:00 Decision to Admit Reason: Admit from EC Decision Date: 12/13/22 Decision Time: 18:00 <Eric Cutler - Last Filed: 12/13/22 18:52> Clinical Impression: Bilirubinemia, Transaminasemia, Chronic alcohol abuse Disposition: ADMITTED IP TO THIS HOSP Condition: Stable Referrals: None,Stated [Primary Care Provider] - 1-2 days
[2022-12-13 12:47] LABS: Anisocytosis Slight; Basophils # (A) 0.1 k/uL (0-0.2); Basophils % (A) 1 %; Eosinophils # (A) 0.1 k/uL (0-0.7); Eosinophils % (A) 2 %; HCT 36.9 % (34.0-46.0); HGB 12.6 gm/dL (11.4-16.0); Lymphocytes # (A) 0.8 k/uL (1.0-4.8); Lymphocytes % (A) 16 %; MCH 34.2 pg (25.0-35.0); MCHC 34.2 g/dL (31.0-37.0); Macrocytosis Slight; Monocytes # (A) 0.4 k/uL (0-1.0); Monocytes % (A) 8 %; Neutrophils # (A) 3.3 k/uL (1.3-7.7); Neutrophils % (A) 71 %; Platelet Count 140 k/uL (150-450); RBC 3.69 m/uL (3.80-5.40); WBC 4.6 k/uL (3.8-10.6)
[2022-12-13 12:56] LABS: INR 1.3 (<1.2); Partial Thromboplastin Time 25.8 sec (22.0-30.0); Prothrombin Time 12.9 sec (9.0-12.0)
[2022-12-13 12:58] LABS: Appearance,Urine Cloudy (Clear); Bacteria,Urine Many /hpf; Bilirubin,Urine 3+ (Negative); Blood,Urine Small (Negative); Color,Urine Dark Brown; Glucose,Urine (UA) Negative (Negative); Granular Casts,Urine 48 /lpf (0); Hyaline Casts,Urine 12 /lpf (0-2); Ketones,Urine Trace (Negative); Leukocyte Esterase,Urine Moderate (Negative); Mucus,Urine Many /hpf; Nitrite,Urine Positive (Negative); PH, Urine 6.5 (5.0-8.0); Protein,Urine 2+ (Negative); RBC,Urine 1 /hpf (0-5); Specific Gravity,Urine 1.028 (1.001-1.035); Squamous Epithelial Cell,Urine 10 /hpf (0-4); WBC,Urine 81 /hpf (0-5)
[2022-12-13 13:09] LABS: ALT 75 U/L (4-34); AST 364 U/L (14-36); African American GFR (CKD) >90 (>60 ml/min/1.73 sqM); Albumin 4.5 g/dL (3.5-5.0); Alkaline Phosphatase 220 U/L (38-126); Amylase 41 U/L (30-110); Anion Gap 17 mmol/L; Blood Urea Nitrogen 4 mg/dL (7-17); Carbon Dioxide 24 mmol/L (22-30); Chloride 94 mmol/L (98-107); Glucose 140 mg/dL (74-99); Lipase 162 U/L (23-300); Non-African American GFR(CKD) >90 (>60 ml/min/1.73 sqM); Potassium 3.3 mmol/L (3.5-5.1); Sodium 135 mmol/L (137-145); Total Bilirubin 8.3 mg/dL (0.2-1.3); Total Protein 8.3 g/dL (6.3-8.2)
[2022-12-13] MEDS ORDERED: SODIUM CHLORIDE 0.9% 1,000 ML IV ONE (16:08)
--- NOTE | 2022-12-13 17:06 | CT ---
EXAMINATION TYPE: CT abdomen pelvis w con CT DLP: 1750.9 mGycm, Automated exposure control for dose reduction was used. DATE OF EXAM: 12/13/2022 4:51 PM COMPARISON: None CLINICAL INDICATION:Female, 32 years old with history of Acute abdominal pain; Vomiting, jaundice, an d abdominal pain TECHNIQUE: Standard CT of the abdomen and pelvis following the administration of 100 cc of Isovue 7 0 IV contrast material. Coronal and sagittal reformats were performed. FINDINGS: LOWER CHEST: Unremarkable ABDOMEN LIVER: Diffusely hypoattenuating parenchyma. Hepatomegaly measuring 25.4 cm in CC dimension.. GALLBLADDER AND BILE DUCTS: Unremarkable. PANCREAS: Unremarkable. SPLEEN: Mildly enlarged measuring 14.1 cm in greatest dimension. ADRENAL GLANDS: Unremarkable. KIDNEYS AND URETERS: No evidence of hydronephrosis or renal calculus. The kidneys enhance symmetrical ly. Contrast is demonstrated within both collecting systems on the delayed phase. PELVIS BLADDER: Unremarkable REPRODUCTIVE: Unremarkable. ABDOMEN & PELVIS STOMACH AND BOWEL: Stomach and duodenum are unremarkable. Submucosal fat deposition within the ascend ing colon. Distal colonic diverticulosis without evidence for acute diverticulitis. The appendix is w ithin normal limits. No evidence of bowel obstruction. PERITONEUM: No evidence of pneumoperitoneum or free fluid. VASCULATURE: No evidence of aortic aneurysm. Multiple pelvic phleboliths. Recanalization of the umbil ical vein. MUSCULOSKELETAL: No acute osseous abnormalities LYMPH NODES: No gross evidence for lymphadenopathy. SOFT TISSUE/ABDOMINAL WALL: Unremarkable IMPRESSION: 1. Severe hepatic steatosis with recanalization of the umbilical vein. Correlation with liver functi on tests is recommended. Cannot exclude [place] or developing cirrhosis. 2. Hepatosplenomegaly. 3. Colonic diverticulosis without evidence for acute diverticulitis.
--- NOTE | 2022-12-13 17:42 | US ---
EXAMINATION TYPE: US abdomen limited DATE OF EXAM: 12/13/2022 COMPARISON: CT: Today CLINICAL INDICATION: Female, 32 years old with history of RUQ, acute hepatitis, elevated bili; acute hepatitis TECHNIQUE: Multiple sonographic images of the right upper quadrant are obtained. FINDINGS: EXAM MEASUREMENTS: Liver Length: 23.4 cm Gallbladder Wall: 0.26 cm CBD: 0.52 cm Right Kidney: 11.3 x 4.5 x 4.2 cm HIGH DENSITY PRESS LABORER NOTES: Pancreas: wnl Liver: Enlarged and heterogeneous Gallbladder: Possibly hydropic Evidence for sonographic Suarez's sign: No CBD: wnl Right Kidney: wnl Hepatomegaly with heterogenous appearance and increased echogenicity. Mildly prominent gallbladder wi thout cholelithiasis, wall thickening, or pericholecystic fluid. Per document reviewer, negative sonographi c Suarez sign. Common bile is within normal limits. Right kidney is unremarkable without evidence of hydronephrosis, solid mass, or nephrolithiasis. IMPRESSION: Hepatomegaly with diffusely coarse heterogenous echogenic appearance consistent with severe hepatic s teatosis on CT of the same date.
[2022-12-13] MEDS ORDERED: NALOXONE 0.4 MG/ML 1 ML VIAL IV PRN (18:53)
[2022-12-13] MEDS: SODIUM CHLORIDE 0.9% 1,000 ML IV SCH (19:40)
[2022-12-14] MEDS ORDERED: LORazepam 2 MG/ML INJ IV PRN ×2 (01:49)
[2022-12-14] MEDS ORDERED: ONDANSETRON 4 MG/2 ML VIAL IVP PRN (01:52)
[2022-12-14] MEDS ORDERED: THIAMINE 100 MG/ML 2 ML VIAL IM ONE (02:00)
[2022-12-14 06:45] LABS: HCG,Qualitative Serum Not Detected
[2022-12-14 06:53] LABS: ALT 58 U/L (4-34); AST 252 U/L (14-36); African American GFR (CKD) >90 (>60 ml/min/1.73 sqM); Albumin 3.6 g/dL (3.5-5.0); Albumin/Globulin Ratio 1.1; Alkaline Phosphatase 191 U/L (38-126); Anion Gap 14 mmol/L; Bilirubin, Conjugated 4.2 mg/dL (0.0-0.3); Bilirubin,Unconjugated 1.1 mg/dL (0.0-1.1); Blood Urea Nitrogen 3 mg/dL (7-17); Calcium 8.3 mg/dL (8.4-10.2); Carbon Dioxide 24 mmol/L (22-30); Chloride 96 mmol/L (98-107); Globulin 3.3 g/dL; Glucose 102 mg/dL (74-99); Magnesium 1.2 mg/dL (1.6-2.3); Non-African American GFR(CKD) >90 (>60 ml/min/1.73 sqM); Potassium 2.8 mmol/L (3.5-5.1); Sodium 134 mmol/L (137-145); Total Bilirubin 7.8 mg/dL (0.2-1.3); Total Protein 6.9 g/dL (6.3-8.2)
[2022-12-14] MEDS ORDERED: Magnesium Replacement Protocol 1 EACH MISC MISCELLANE PRN (07:21)
[2022-12-14] MEDS ORDERED: Potassium Replacement Protocol 1 EACH MISC MISCELLANE PRN (07:21)
--- NOTE | 2022-12-14 07:36 | P.HPIM ---
History of Present Illness This is a pleasant 52 years old female with past medical history of GERD Patient presents because of recurrent vomiting which has been going on for several months with no improvement and yesterday she decided to come to emergency room. 2 months ago she went to urgent care at that time she had abdominal pain and she's been told she might have an ulcer however today when she came in to the hospital she denies abdominal pain. She states that she will vomited once yesterday with little blood in it. And she started having streaks of blood in her stool yesterday which is an you for her so she decided also to come to emergency room. Stool color is brown. Currently she denies nausea but feels dry mouth and generalized weakness with no energy. Ulcers in complaining of from yellow eyes. No diarrhea. No urinary symptoms were no dysuria urgency or hesitancy. She has little, for the patella phlegm, she was little dizzy but fine now. No headache weakness or numbness. No menstrual problems. She feels little depressed because she is feeling sick but she denies any suicidal, homicidal ideation. She denies any hallucination or delusions. She does not follow with PCP She denies smoking or illicit drugs. She drinks about 1 pint or 1.5 pint per day stating that improvement from 8 months ago where she was drinking more she i s trying to quit and she wants to go to [place] after finishing this hospitalization On admission vitals are stable and patient is afebrile CBC is unremarkable except for mild thrombocytopenia at 140. INR is 1.3. Sodium 135, potassium 3.3, creatinine is normal at 0.6. Bilirubin is elevated with 8.3 AST is elevated to 64 and ALT 75. Troponin is negative. Urine analysis is suspicious for UTI Urine test is not detected EKG showing sinus rhythm at [address]-T changes Abdominal ultrasound: Enlarged liver and heterogenous, possible hydropic gallbladder CT of the abdomen and pelvis with contrast: Diffuse hypoattenuation parenchyma, hepatomegaly measuring 25.4 cm, gallbladder and bile ducts are unremarkable. Spleen is mildly enlarged at 14.1 cm. Severe hepatic steatosis with recanalization of the umbilical vein. Correlate with liver function test is recommended. Cannot exclude Koo or developing cirrhosis. Patient was started on normal saline 75 mL/h and admitted with GI consult Review of Systems Review of systems CONSTITUTIONAL: No fever, no malaise, no fatigue. HEENT: No recent visual problems or hearing problems. Denied any sore throat. CARDIOVASCULAR: No orthopnea, PND, no palpitations, no syncope. PULMONARY: No shortness of breath, no cough, no hemoptysis. GASTROINTESTINAL: No diarrhea. Normoactive bowel sounds. NEUROLOGICAL: No headaches, no weakness, no numbness. HEMATOLOGICAL: Denies any bleeding or petechiae. GENITOURINARY: Denies any burning micturition, frequency, or urgency. MUSCULOSKELETAL/RHEUMATOLOGICAL: Denies any joint pain, swelling, or any muscle pain. ENDOCRINE: Denies any polyuria or polydipsia. Past Medical History Past Medical History: GERD/Reflux Additional Past Medical History / Comment(s): urgent care told pt she had an ulcer History of Any Multi-Drug Resistant Organisms: None Reported Past Surgical History: No Surgical Hx Reported Additional Past Surgical History / Comment(s): D&C Past Anesthesia/Blood Transfusion Reactions: No Reported Reaction Past Psychological History: No Psychological Hx Reported Smoking Status: Never smoker Past Alcohol Use History: Daily Past Drug Use History: None Reported - Past Family History Mother Additional Family Medical History / Comment(s): spina bifida, depression, anxiety Medications and Allergies Home Medications Medication Instructions Recorded Confirmed Type Omeprazole 20 mg PO DAILY 12/13/22 12/13/22 History Allergies Allergy/AdvReac Type Severity Reaction Status Date / Time ethinyl estradiol Allergy Unknown Verified 12/13/22 16:02 [From Loestrin 24 Fe] ferrous fumarate Allergy Unknown Verified 12/13/22 16:02 [From Loestrin 24 Fe] norethindrone acetate Allergy Unknown Verified 12/13/22 16:02 [From Loestrin 24 Fe] Physical Exam Vitals: Vital Signs Temp Pulse Pulse Resp BP BP Pulse Ox 12/14/22 02:31 98.8 F 89 17 120/68 94 L 12/13/22 23:07 98.7 F 92 16 131/79 95 12/13/22 22:48 85 18 118/70 99 12/13/22 20:00 97.9 F 89 18 127/86 97 12/13/22 16:11 92 18 158/91 96 12/13/22 12:10 97.8 F 90 16 168/107 98 Intake and Output 12/13/22 12/14/22 12/14/22 22:59 06:59 14:59 Other: # Voids 1 Weight 90.718 kg GENERAL: The patient is alert and oriented x3, not in any acute distress. Well developed, well nourished. HEENT: Pupils are round and equally reacting to light. EOMI. No scleral icterus. No conjunctival pallor. Normocephalic, atraumatic. No pharyngeal erythema. No thyromegaly. CARDIOVASCULAR: S1 and S2 present. No murmurs, rubs, or gallops. PULMONARY: Chest is clear to auscultation, no wheezing , no crackles. -ABDOMEN: Soft, tender Mild RUQ tenderness with positive Suarez sign, nondistended, normoactive bowel sounds. No palpable organomegaly. MUSCULOSKELETAL: No joint swelling or deformity. EXTREMITIES: No cyanosis, clubbing, or pedal edema. NEUROLOGICAL: Gross neurological examination did not reveal any focal deficits. SKIN: No rashes. no petechiae. Results CBC & Chem 7: 12/13/22 12:31 12/14/22 05:37 Labs: Abnormal Lab Results - Last 24 Hours (Table) 12/13/22 12/13/22 12/13/22 Range/Units 12:31 12:31 12:31 RBC 3.69 L (3.80-5.40) m/uL RDW 17.0 H (11.5-15.5) % Plt Count 140 L (150-450) k/uL Lymphocytes # 0.8 L (1.0-4.8) k/uL PT 12.9 H (9.0-12.0) sec INR 1.3 H (<1.2) Sodium 135 L (137-145) mmol/L Potassium 3.3 L (3.5-5.1) mmol/L Chloride 94 L (98-107) mmol/L BUN 4 L (7-17) mg/dL Glucose 140 H (74-99) mg/dL Calcium (8.4-10.2) mg/dL Magnesium (1.6-2.3) mg/dL Total Bilirubin 8.3 H (0.2-1.3) mg/dL Conjugated Bilirubin (0.0-0.3) mg/dL AST 364 H (14-36) U/L ALT 75 H (4-34) U/L Alkaline Phosphatase 220 H (38-126) U/L Total Protein 8.3 H (6.3-8.2) g/dL Urine Appearance (Clear) Urine Protein (Negative) Urine Ketones (Negative) Urine Blood (Negative) Urine Nitrite (Negative) Urine Bilirubin (Negative) Ur Leukocyte Esterase (Negative) Urine WBC (0-5) /hpf Ur Squamous Epith Cells (0-4) /hpf Urine Bacteria (None) /hpf Hyaline Casts (0-2) /lpf Urine Mucus (None) /hpf 12/13/22 12/14/22 Range/Units 12:40 05:37 RBC (3.80-5.40) m/uL RDW (11.5-15.5) % Plt Count (150-450) k/uL Lymphocytes # (1.0-4.8) k/uL PT (9.0-12.0) sec INR (<1.2) Sodium 134 L (137-145) mmol/L Potassium 2.8 L (3.5-5.1) mmol/L Chloride 96 L (98-107) mmol/L BUN 3 L (7-17) mg/dL Glucose 102 H (74-99) mg/dL Calcium 8.3 L (8.4-10.2) mg/dL Magnesium 1.2 L (1.6-2.3) mg/dL Total Bilirubin 7.8 H (0.2-1.3) mg/dL Conjugated Bilirubin 4.2 H (0.0-0.3) mg/dL AST 252 H (14-36) U/L ALT 58 H (4-34) U/L Alkaline Phosphatase 191 H (38-126) U/L Total Protein (6.3-8.2) g/dL Urine Appearance Cloudy H (Clear) Urine Protein 2+ H (Negative) Urine Ketones Trace H (Negative) Urine Blood Small H (Negative) Urine Nitrite Positive H (Negative) Urine Bilirubin 3+ H (Negative) Ur Leukocyte Esterase Moderate H (Negative) Urine WBC 81 H (0-5) /hpf Ur Squamous Epith Cells 10 H (0-4) /hpf Urine Bacteria Many H (None) /hpf Hyaline Casts 12 H (0-2) /lpf Urine Mucus Many H (None) /hpf Thrombosis Risk Factor Assmnt - Choose All That Apply Any of the Below Risk Factors Present?: Yes Each Factor Represents 1 point: Obesity (BMI >25) Other Risk Factors: No Other congenital or acquired thrombophilia - If yes, enter type in comment: No Thrombosis Risk Factor Assessment Total Risk Factor Score: 1 Thrombosis Risk Factor Assessment Level: Low Risk Assessment and Plan Assessment: Alcohol use disorder Alcoholic hepatitis and transaminitis Abdominal pain with nausea vomiting secondary to above Hepatosplenomegaly, with heterogenous liver suspicious for Koo or developing cirrhosis Possible hydropic gallbladder, less likely acute cholecystitis Possible GI bleed with streaks of blood in her stool History of GERD Plan: Continue with bowel rest Continue with normal saline GI consult Monitor liver enzymes, bilirubin and INR we will check hida scan Labs and medication were reviewed.. Continue same treatment. Continue with symptomatic treatment. Resume home medication. Monitor labs and vitals. DVT and GI prophylaxis. Further recommendations as per clinical course of the patient DVT prophylaxis: no Subcutaneous heparin for possible GI bleed GI Prophylaxis: Ppi Prognosis is guarded
[2022-12-14] MEDS: MAGNESIUM SULFATE-D5W PMX 1 GM in DEXTROSE/WATER 1 100ML.BAG IVPB SCH ×2 (08:15→09:35)
[2022-12-14] MEDS: SODIUM CHLORIDE 0.9% 1,000 ML IV SCH ×2 (08:16→23:19)
[2022-12-14] MEDS: LORazepam 2 MG/ML INJ IV PRN ×2 (08:16→20:31)
[2022-12-14 09:03] LABS: Basophils # (A) 0.06 X 10*3/uL (0.00-0.10); Basophils % (A) 1.4 %; Eosinophils # (A) 0.07 X 10*3/uL (0.04-0.35); Eosinophils % (A) 1.6 %; HGB 10.6 d/dL (12.0-15.0); Lymphocytes # (A) 0.91 X 10*3/uL (0.90-5.00); Lymphocytes % (A) 20.9 %; MCH 32.9 pg (27.0-32.0); MCHC 34.2 d/dL (32.0-37.0); MCV 96.3 FL (80.0-97.0); Mean Platelet Volume 11.4 FL (9.5-12.2); Monocytes # (A) 0.46 X 10*3/uL (0.20-1.00); Monocytes % (A) 10.6 %; NRBC Per 100 WBC 0 X 10*3/uL (0.00-0.01); Neutrophils # (A) 2.82 X 10*3/uL (1.80-7.70); Neutrophils % (A) 64.8 %; Platelet Count 137 X 10*3/uL (140-440); RBC 3.22 X 10*6/uL (4.10-5.20); RDW 18.1 % (11.5-14.5); WBC 4.35 X 10*3/uL (4.50-10.00)
--- NOTE | 2022-12-14 10:48 | P.CONS ---
History of Present Illness - Reason for Consult Consult date: 12/14/22 Hyperbilirubinemia, transaminitis Requesting physician: Eric Cutler - Chief Complaint Jaundice, weakness - History of Present Illness This is a 32-year-old female who presented to the emergency department with concerns for yellowing of skin and weakness. Patient states she went to work however she started feeling very weak and feeling like she was given of fall and pass out. She had noticed that her skin had been turning yellow over the last 2-3 days. She denies previous history of jaundice. She admits to drinking 2/5 a day for the last 2 years duration. States that she started drinking in her early 20s but has drank heavily for the last 2 years duration. Denies any previous history of liver disease. Admitting labs with elevated bilirubin at 8.3, elevated LFTs AST 364 AST 75 alkaline phosphatase 220 lipase 162. Gastroenterology was consulted for hyperbilirubinemia, transaminitis. Patient currently denies any abdominal pain no nausea or vomiting. She denies any chest pain, shortness of breath, fevers or chills. States she is just concerned about going through withdrawals. Imaging CT abdomen and pelvis with contrast report severe hepatic state ptosis with recanalization of the umbilical vein. Correlate with liver function tests recommended. Cannot exclude mass or developing cirrhosis. Hepatosplenomegaly. Colonic diverticulosis without evidence for acute diverticulitis. Abdominal ultrasound reports hepatomegaly with diffusely coarse heterogeneous echogenic appearance consistent with severe hepatic state ptosis on CT Labs WBC 4.3 hemoglobin 10.6 hematocrit 31 platelet count 137,000 INR 1.3 sodium 134 potassium 2.8 total bilirubin 7.8 AST 250 2ALT 58 alkaline phosphatase 191 Review of Systems REVIEW OF SYSTEMS: CARDIOPULMONARY: No chest pain or shortness of breath. Gastrointestinal: Right upper quadrant abdominal discomfort. No nausea or vomiting. No hematemesis, coffee-ground emesis. No rectal bleeding, or melena. GENITOURINARY: No dysuria or hematuria. MUSCULOSKELETAL: Reports normal range of motion. SKIN: No rashes. Jaundice. ENDOCRINE: No chills, fevers. No excessive weight gain or loss. No polydipsia or polyuria. PSYCHIATRIC: Unremarkable. Alcohol abuse/dependence NEUROLOGY: No change in mental status. Denies dizziness, headache. ENT: Vision unremarkable. CONSTITUTIONAL: No recent weight loss. No fever, chills, night sweats. Increased weakness. Past Medical History Past Medical History: GERD/Reflux Additional Past Medical History / Comment(s): urgent care told pt she had an ulcer History of Any Multi-Drug Resistant Organisms: None Reported Past Surgical History: No Surgical Hx Reported Additional Past Surgical History / Comment(s): D&C Past Anesthesia/Blood Transfusion Reactions: No Reported Reaction Past Psychological History: No Psychological Hx Reported Smoking Status: Never smoker Past Alcohol Use History: Daily Past Drug Use History: None Reported - Past Family History Mother Additional Family Medical History / Comment(s): spina bifida, depression, anxiety Medications and Allergies Home Medications Medication Instructions Recorded Confirmed Type Omeprazole 20 mg PO DAILY 12/13/22 12/13/22 History Allergies Allergy/AdvReac Type Severity Reaction Status Date / Time ethinyl estradiol Allergy Unknown Verified 12/13/22 16:02 [From Loestrin 24 Fe] ferrous fumarate Allergy Unknown Verified 12/13/22 16:02 [From Loestrin 24 Fe] norethindrone acetate Allergy Unknown Verified 12/13/22 16:02 [From Loestrin 24 Fe] Physical Exam Vitals: Vital Signs Temp Pulse Pulse Resp BP BP Pulse Ox 12/14/22 07:50 98 F 98 22 128/75 92 L 12/14/22 02:31 98.8 F 89 17 120/68 94 L 12/13/22 23:07 98.7 F 92 16 131/79 95 12/13/22 22:48 85 18 118/70 99 12/13/22 20:00 97.9 F 89 18 127/86 97 12/13/22 16:11 92 18 158/91 96 12/13/22 12:10 97.8 F 90 16 168/107 98 Intake and Output 12/13/22 12/14/22 12/14/22 22:59 06:59 14:59 Other: # Voids 1 Weight 90.718 kg General appearance: The patient is alert, oriented, appears in no acute distress. HET: Head is normocephalic and atraumatic. Conjunctiva pink. Sclera icteric. Neck: Supple without lymphadenopathy. Trachea midline. Heart: S1 S2. Regular rate and rhythm. Lungs: Clear to auscultation. Abdomen: Soft, hepatomegaly, right upper quadrant tenderness, nondistended with bowel sounds. No guarding or rigidity. Skin: No rashes. Deeply jaundice Extremities: Normal skin color and turgor. No pedal edema. Neurological: No focal deficits. Alert and oriented x3. Results CBC & Chem 7: 12/14/22 05:37 12/14/22 05:37 Labs: Abnormal Lab Results - Last 24 Hours (Table) 12/13/22 12/13/22 12/13/22 Range/Units 12:31 12:31 12:31 RBC 3.69 L (3.80-5.40) m/uL RDW 17.0 H (11.5-15.5) % Plt Count 140 L (150-450) k/uL Lymphocytes # 0.8 L (1.0-4.8) k/uL PT 12.9 H (9.0-12.0) sec INR 1.3 H (<1.2) Sodium 135 L (137-145) mmol/L Potassium 3.3 L (3.5-5.1) mmol/L Chloride 94 L (98-107) mmol/L BUN 4 L (7-17) mg/dL Glucose 140 H (74-99) mg/dL Calcium (8.4-10.2) mg/dL Magnesium (1.6-2.3) mg/dL Total Bilirubin 8.3 H (0.2-1.3) mg/dL Conjugated Bilirubin (0.0-0.3) mg/dL AST 364 H (14-36) U/L ALT 75 H (4-34) U/L Alkaline Phosphatase 220 H (38-126) U/L Total Protein 8.3 H (6.3-8.2) g/dL Urine Appearance (Clear) Urine Protein (Negative) Urine Ketones (Negative) Urine Blood (Negative) Urine Nitrite (Negative) Urine Bilirubin (Negative) Ur Leukocyte Esterase (Negative) Urine WBC (0-5) /hpf Ur Squamous Epith Cells (0-4) /hpf Urine Bacteria (None) /hpf Hyaline Casts (0-2) /lpf Urine Mucus (None) /hpf 12/13/22 12/14/22 Range/Units 12:40 05:37 RBC (3.80-5.40) m/uL RDW (11.5-15.5) % Plt Count (150-450) k/uL Lymphocytes # (1.0-4.8) k/uL PT (9.0-12.0) sec INR (<1.2) Sodium 134 L (137-145) mmol/L Potassium 2.8 L (3.5-5.1) mmol/L Chloride 96 L (98-107) mmol/L BUN 3 L (7-17) mg/dL Glucose 102 H (74-99) mg/dL Calcium 8.3 L (8.4-10.2) mg/dL Magnesium 1.2 L (1.6-2.3) mg/dL Total Bilirubin 7.8 H (0.2-1.3) mg/dL Conjugated Bilirubin 4.2 H (0.0-0.3) mg/dL AST 252 H (14-36) U/L ALT 58 H (4-34) U/L Alkaline Phosphatase 191 H (38-126) U/L Total Protein (6.3-8.2) g/dL Urine Appearance Cloudy H (Clear) Urine Protein 2+ H (Negative) Urine Ketones Trace H (Negative) Urine Blood Small H (Negative) Urine Nitrite Positive H (Negative) Urine Bilirubin 3+ H (Negative) Ur Leukocyte Esterase Moderate H (Negative) Urine WBC 81 H (0-5) /hpf Ur Squamous Epith Cells 10 H (0-4) /hpf Urine Bacteria Many H (None) /hpf Hyaline Casts 12 H (0-2) /lpf Urine Mucus Many H (None) /hpf Assessment and Plan (1) Acute alcoholic hepatitis Narrative/Plan: 32-year-old long-standing history of alcohol abuse who admits to drinks two fifths a day presented to the emergency department with jaundice and weakness. Labs are all consistent with underlying alcoholic liver disease. Hyperbilirubin emia and LFTs again consistent with acute alcoholic hepatitis. Patient underwent CT abdomen and pelvis as well as ultrasound showing severe hepatic steatosis likely beginning of cirrhosis. Continue with IV hydration, continue symptomatic and supportive care and watch for withdrawal symptoms. Discussed with patient importance of alcohol abstinence, likely developing cirrhosis of the liver. Current Visit: Yes Status: Acute Code(s): K70.10 - ALCOHOLIC HEPATITIS WITHOUT ASCITES SNOMED Code(s): 4445104 (2) Chronic alcohol abuse Current Visit: Yes Status: Acute Code(s): F10.10 - ALCOHOL ABUSE, UNCOMPLICATED SNOMED Code(s): 694404890 Plan: 1. Continue symptomatic and supportive care 2. No need for HIDA scan, right upper quadrant tenderness and LFTs elevation related to acute alcoholic hepatitis 3. Continue to monitor for alcohol withdrawal symptoms and treat per protocol 4. Alcohol abstinence 5. Repeat CMP tomorrow 6. Patient may have low sodium diet Thank you for this consultation, we will continue to follow. Dr. Soo Renae I agree with the dictator's note, documented as a scribe by Abiola Stoner.
[2022-12-14 12:28] LABS: INR 1.09 sec (0.93-1.11); Prothrombin Time 12.3 sec (9.9-11.9)
[2022-12-14] MEDS: POTASSIUM CHLORIDE ER 20 MEQ TAB.ER PO SCH ×4 (13:20→23:19)
[2022-12-14] MEDS ORDERED: MAGNESIUM SULFATE-D5W PMX 1 GM in DEXTROSE/WATER 1 100ML.BAG IVPB ONE (21:00)
[2022-12-15 07:28] VITALS: RESP 18
[2022-12-15] MEDS: LORazepam 2 MG/ML INJ IV PRN (07:56)
[2022-12-15] MEDS: SODIUM CHLORIDE 0.9% 1,000 ML IV SCH (08:21)
[2022-12-15] MEDS ORDERED: THIAMINE 100 MG TAB PO SCH (09:00)
[2022-12-15] MEDS ORDERED: PANTOPRAZOLE 40 MG/10 ML VIAL IVP SCH (09:00)
[2022-12-15 09:07] LABS: Basophils # (A) 0.06 X 10*3/uL (0.00-0.10); Basophils % (A) 1.1 %; Eosinophils % (A) 1.8 %; HCT 31.6 % (37.2-46.3); HGB 10.6 d/dL (12.0-15.0); Lymphocytes # (A) 0.92 X 10*3/uL (0.90-5.00); Lymphocytes % (A) 16.7 %; MCH 33.1 pg (27.0-32.0); MCHC 33.5 d/dL (32.0-37.0); MCV 98.8 FL (80.0-97.0); Mean Platelet Volume 11.5 FL (9.5-12.2); Monocytes # (A) 0.55 X 10*3/uL (0.20-1.00); NRBC Per 100 WBC 0 X 10*3/uL (0.00-0.01); Neutrophils # (A) 3.82 X 10*3/uL (1.80-7.70); Neutrophils % (A) 69.5 %; Platelet Count 159 X 10*3/uL (140-440); RDW 18.6 % (11.5-14.5)
[2022-12-15 09:18] LABS: Magnesium 1.8 mg/dL (1.5-2.4)
[2022-12-15] MEDS: LACTULOSE 20 GM/30 ML CUP PO SCH ×2 (09:18→13:20)
[2022-12-15 09:28] LABS: ALT 48 U/L (8-44); AST 174 U/L (13-35); Albumin 3.6 d/dL (3.8-4.9); Albumin/Globulin Ratio 1.38 Ratio (1.60-3.17); Alkaline Phosphatase 202 U/L (41-126); BUN/Creat Ratio <5.83 Ratio (12.00-20.00); Bilirubin, Conjugated 7.13 mg/dL (0.20-0.40); Bilirubin,Unconjugated 1.27 mg/dL (0.20-1.00); Blood Urea Nitrogen <3.5 mg/dL (9.0-27.0); Calcium 8.7 mg/dL (8.7-10.3); Carbon Dioxide 25.8 mmol/L (21.6-31.8); Chloride 98 mmol/L (96-109); Globulin 2.6 d/dL (1.6-3.3); Glucose 108 mg/dL (70-110); Potassium 3.6 mmol/L (3.5-5.5); Sodium 136 mmol/L (135-145); Total Bilirubin 8.4 mg/dL (0.3-1.2); Total Protein 6.2 d/dL (6.2-8.2)
[2022-12-15 11:49] VITALS: BP 118/73; PULSE 107; TEMP 98.6
[2022-12-15] MEDS ORDERED: POTASSIUM CHLORIDE ER 20 MEQ TAB.ER PO STA (15:06)
--- NOTE | 2022-12-15 15:27 | P.PN ---
Subjective Progress Note Date: 12/15/22 Principal diagnosis: Acute alcoholic hepatitis This is a 32-year-old female who presented to the emergency department with concerns for yellowing of skin and weakness. Patient states she went to work however she started feeling very weak and feeling like she was given of fall and pass out. She had noticed that her skin had been turning yellow over the last 2-3 days. She denies previous history of jaundice. She admits to drinking 2/5 a day for the last 2 years duration. States that she started drinking in her early 20s but has drank heavily for the last 2 years duration. Denies any previous history of liver disease. Admitting labs with elevated bilirubin at 8.3, elevated LFTs AST 364 AST 75 alkaline phosphatase 220 lipase 162. Gastroenterology was consulted for hyperbilirubinemia, transaminitis. Patient currently denies any abdominal pain no nausea or vomiting. She denies any chest pain, shortness of breath, fevers or chills. States she is just concerned about going through withdrawals. Imaging CT abdomen and pelvis with contrast report severe hepatic state ptosis with recanalization of the umbilical vein. Correlate with liver function tests recommended. Cannot exclude mass or developing cirrhosis. Hepatosplenomegaly. Colonic diverticulosis without evidence for acute diverticulitis. Abdominal ultrasound reports hepatomegaly with diffusely coarse heterogeneous echogenic appearance consistent with severe hepatic state ptosis on CT Labs WBC 4.3 hemoglobin 10.6 hematocrit 31 platelet count 137,000 INR 1.3 sodium 134 potassium 2.8 total bilirubin 7.8 AST 250 2ALT 58 alkaline phosphatase 191 12/15/2022 Patient seen and examined today as a follow-up. She is feeling better. States she is more alert. States the Ativan had helped throughout the night. Ammonia 75 this morning. Patient complains that she is constipated hasn't had a bowel movement in 3-4 days. Objective - Vital Signs Vital signs: Vital Signs Temp 99.3 F 12/15/22 07:12 Pulse 97 12/15/22 07:12 Resp 18 12/15/22 07:12 BP 130/76 12/15/22 07:12 Pulse Ox 97 12/15/22 07:12 FiO2 Intake & Output 12/14/22 12/15/22 12/15/22 18:59 06:59 18:59 Other: # Voids 2 1 - Exam General appearance: The patient is alert, oriented, appears in no acute distress. HET: Head is normocephalic and atraumatic. Conjunctiva pink. Sclera icteric. Neck: Supple without lymphadenopathy. Abdomen: Soft, nontender, nondistended with bowel sounds. No guarding or rigidity. Extremities: Normal skin color and turgor. No pedal edema Skin: No rashes, jaundice. Neurological: No focal deficits. Alert and oriented. - Labs CBC & Chem 7: 12/15/22 06:00 12/15/22 06:00 Labs: Abnormal Lab Results - Last 24 Hours (Table) 12/14/22 12/14/22 12/14/22 Range/Units 05:37 10:42 18:21 PT 12.3 H (9.9-11.9) sec Potassium 3.4 L (3.5-5.1) mmol/L Ammonia 52 H (<30) umol/L Assessment and Plan (1) Acute alcoholic hepatitis Narrative/Plan: 32-year-old long-standing history of alcohol abuse who admits to drinks two fifths a day presented to the emergency department with jaundice and weakness. Labs are all consistent with underlying alcoholic liver disease. Hyperbilirubinemia and LFTs again consistent with acute alcoholic hepatitis. Patient underwent CT abdomen and pelvis as well as ultrasound showing severe hepatic steatosis likely beginning of cirrhosis. Continue with IV hydration, continue symptomatic and supportive care and watch for withdrawal symptoms. Discussed with patient importance of alcohol abstinence, likely developing cirrhosis of the liver. Current Visit: Yes Status: Acute Code(s): K70.10 - ALCOHOLIC HEPATITIS WITHOUT ASCITES SNOMED Code(s): 6978536 (2) Chronic alcohol abuse Current Visit: Yes Status: Acute Code(s): F10.10 - ALCOHOL ABUSE, UNCOMPLICATED SNOMED Code(s): 377819145 (3) Hyperammonemia Narrative/Plan: Secondary to alcoholic liver disease Current Visit: Yes Status: Acute Code(s): E72.20 - DISORDER OF UREA CYCLE METABOLISM, UNSPECIFIED SNOMED Code(s): 4590117 Plan: 1. Continue symptomatic and supportive care 2. No need for HIDA scan, right upper quadrant tenderness and LFTs elevation related to acute alcoholic hepatitis 3. Continue to monitor for alcohol withdrawal symptoms and treat per protocol 4. Alcohol abstinence 5. Start lactulose 30 g 3 times a day. Titrate to have 2-3 bowel movements daily. This was discussed with patient. 6. Patient to follow-up with gastroenterology next week Thank you for this consultation, patient is stable for discharge from gastroenterology. Dr. Soo Renae I agree with the dictator's note, documented as a scribe by Abiola Stoner.
--- NOTE | 2022-12-15 22:15 | P.DS ---
Providers Date of admission: 12/13/22 18:53 Attending physician: Ravinder Fitzpatrick Consults: 12/13/22 18:53 Consult Physician Routine Consulting Provider: Mita Renae Consult Reason/Comments: Bilirubinemia, transaminitis Do you want consulting provider notified?: Yes, Notify in am Primary care physician: Stated None Hospital Course: Diagnoses Alcohol use disorder, improving Alcoholic hepatitis and transaminitis, improving Abdominal pain with nausea vomiting secondary to above, resolved Hepatosplenomegaly, with heterogenous liver suspicious for Koo or developing cirrhosis Possible hydropic gallbladder, less likely acute cholecystitis Possible GI bleed with streaks of blood in her stool. Hemoglobin stable History of GERD Abnormal urine analysis with no signs and symptoms of UTI, most likely asymp tomatic bacteriuria, no need for antibiotics or treatment Hospital course: This is a pleasant 52 years old female with past medical history of GERD Patient presents because of recurrent vomiting which has been going on for several months with no improvement and she decided to come to emergency room. 2 months ago she went to urgent care at that time she had abdominal pain and she's been told she might have an ulcer however today when she came in to the hospital she denies abdominal pain. Patient was found to have alcoholic hepatitis with elevated liver enzymes and hepatosplenomegaly. She was treated with CIWA protocol, thiamine, normal saline and symptomatic treatment. Patient showed interval improvement in her vomiting is stopped, no abdominal pain she tolerates diet she has regular bowel movement. Her CIWA score is low she feels better herself and she wants to go home. Patient was instructed to follow up with [facility] upon discharge and she agrees, I offered to give her resources she said she already has a relative work at [facility] and she knows how to get there. Patient developed by GI service who cleared her for discharge as well today with a recommendation for outpatient follow-up in one week, patient informed and she agrees. Patient requested to be discharged to give her benzodiazepines. Which is appropriate. She received Librium tapered dose starting today. Her CIWA score improved with the baby about 3. Patient with no significant symptoms of withdrawal. No other new symptoms. Patient is medically stable Patient was cleared for discharge by GI service Problems and management plan were discussed with the patient and he verbalized understanding and acceptance Patient was found stable and can be discharged home in guarded prognosis however he needs follow-up as an outpatient. Patient was instructed to follow up with PCP within one week and patient agrees Patient was instructed to follow-up with GI Dr. Renae in one week and she agrees to call and make her own appointment Physical exam Gen: patient is a AAOx3, no distress CVS: S1-S2, RRR, no murmur Lungs: B/L CTA, no wheezing Abdomen: soft, no distention, no tenderness, positive bowel sounds Extremity: no leg edema or induration Time spent more than 35 minutes Patient Condition at Discharge: Stable Plan - Discharge Summary New Discharge Prescriptions: New Magnesium Oxide [Mag-Ox] 400 mg PO TID 5 Days #15 tablet chlordiazePOXIDE HCl [Librium] 20 mg PO DIRECTED #8 capsule Lactulose [Cephulac] 30 gm PO TID 21 Days #2000 ml Thiamine [Vitamin B-1] 100 mg PO DAILY #30 tab Continue Omeprazole 20 mg PO DAILY #30 cap Discharge Medication List Lactulose [Cephulac] 30 gm PO TID 21 Days #2000 ml 12/15/22 [Rx] Magnesium Oxide [Mag-Ox] 400 mg PO TID 5 Days #15 tablet 12/15/22 [Rx] Omeprazole 20 mg PO DAILY #30 cap 12/15/22 [Rx] Thiamine [Vitamin B-1] 100 mg PO DAILY #30 tab 12/15/22 [Rx] chlordiazePOXIDE HCl [Librium] 20 mg PO DIRECTED #8 capsule 12/15/22 [Rx] Follow up Appointment(s)/Referral(s): Lay Krause NPC [REFERRING] - 12/28/22 3:45 pm (follow up acute alcoholic hepatitis with hepatic encephalopathy. Follow up scheduled with Dr. Renae 12/28/22 @ 3:45PM) Mita Renae MD [STAFF PHYSICIAN] - 12/28/22 3:45 pm None,Stated [Primary Care Provider] - 1-2 days Patient Instructions/Handouts: Chlordiazepoxide (By mouth), Omeprazole (By mouth), Thiamine (By mouth), Lactulose (By mouth), Magnesium Oxide (By mouth) Activity/Diet/Wound Care/Special Instructions: call you insurance Discharge/Stand Alone Forms: Community Resources, Outpatient Counseling, Inp Substance Abuse Facilities, AA Meetings [place] Discharge Disposition: HOME SELF-CARE
== END 2022-12-15 16:17 | disposition home or self-care (01) ==
LOC: EC 11:47 → INTOOBSV 18:53 → 5NMEDONC 18:53 → UNDODISIN 12-15 16:17
PROVIDERS: ADMIT Hospitalist; ATTEND Hospitalist
DX: K70.10 Alcoholic hepatitis without ascites (principal); F10.239 Alcohol dependence with withdrawal, unspecified; I10 Essential (primary) hypertension; I25.10 Atherosclerotic heart disease of native coronary artery without angina pectoris; Z81.8 Family history of other mental and behavioral disorders; K21.9 Gastro-esophageal reflux disease without esophagitis; R82.71 Bacteriuria; R94.31 Abnormal electrocardiogram [ECG] [EKG]
CPT/HCPCS: 96360; 96361; 99285; 36415; 93005; 80053; 80048 ×2; 80076 ×2; 82140; 82150; 83690; 83735 ×2; 84132; 84484; 85025 ×3; 85610 ×2; 85730; 81001; 81025; 84703; 76705; 74177; G0378 ×3; J2060 ×2; J3411; J2405; J3475; C9113; Q9967

== ENCOUNTER 2023-05-08 03:47 | Observation (INO) | payer OTHER ==
[2023-05-08] MEDS ORDERED: LORazepam 2 MG/ML INJ IV PRN ×3 (03:59)
[2023-05-08] MEDS ORDERED: SODIUM CHLORIDE 0.9% 500 ML 500 ML IV STA (03:59)
[2023-05-08] MEDS ORDERED: SODIUM CHLORIDE 0.9% 1,000 ML IV STA ×2 (03:59)
[2023-05-08] MEDS ORDERED: LORazepam 2 MG/ML INJ IV STA (03:59)
--- NOTE | 2023-05-08 04:00 | ED ---
Alcohol HPI - General Chief Complaint: Alcohol Stated Complaint: Tremors, nausea Time Seen by Provider: 05/08/23 03:57 Source: patient, RN notes reviewed, old records reviewed Mode of arrival: ambulatory Limitations: no limitations - History of Present Illness Initial Comments: This is a 33-year-old female to the emergency department for evaluation. Sander bravo presents today for evaluation of significant alcohol abuse with alcohol withdrawal. Patient has significant amount of shaking here in the ER with history of seizures. Patient has recent history of drinking and recently stopped drinking with prior history of significant alcohol abuse. Patient states she was shaking uncontrollably concerned become confused with nausea vomiting MD Complaint: alcohol withdrawal Last Drink: just STOVE [employer]ER -: days(s) Previous Visits for Alcohol Intoxication?: Yes Recent Trauma: Yes Associated Symptoms: nausea, vomiting Treatments Prior to Arrival: none Chronic Alcohol Use: Yes - Related Data Previous Rx's Medication Instructions Recorded Lactulose [Cephulac] 30 gm PO TID 21 Days #2000 ml 12/15/22 Magnesium Oxide [Mag-Ox] 400 mg PO TID 5 Days #15 tablet 12/15/22 Omeprazole 20 mg PO DAILY #30 cap 12/15/22 Thiamine [Vitamin B-1] 100 mg PO DAILY #30 tab 12/15/22 chlordiazePOXIDE HCl [Librium] 20 mg PO DIRECTED #8 capsule 12/15/22 Allergies Allergy/AdvReac Type Severity Reaction Status Date / Time ethinyl estradiol Allergy Unknown Verified 05/08/23 03:51 [From Loestrin 24 Fe] ferrous fumarate Allergy Unknown Verified 05/08/23 03:51 [From Loestrin 24 Fe] norethindrone acetate Allergy Unknown Verified 05/08/23 03:51 [From Loestrin 24 Fe] Review of Systems ROS Statement: Those systems with pertinent positive or pertinent negative responses have been documented in the HPI. ROS Other: All systems not noted in ROS Statement are negative. Past Medical History Past Medical History: GERD/Reflux Additional Past Medical History / Comment(s): urgent care told pt she had an ulcer, alcohol hepatitis History of Any Multi-Drug Resistant Organisms: None Reported Past Surgical History: No Surgical Hx Reported Additional Past Surgical History / Comment(s): D&C Past Anesthesia/Blood Transfusion Reactions: No Reported Reaction Past Psychological History: No Psychological Hx Reported Smoking Status: Never smoker Past Alcohol Use History: Daily Past Drug Use History: None Reported - Past Family History Mother Additional Family Medical History / Comment(s): spina bifida, depression, anxiety General Exam Limitations: altered mental status General appearance: anxious, in distress Head exam: Present: atraumatic, normocephalic, normal inspection Eye exam: Present: normal appearance, PERRL, EOMI. Absent: scleral icterus, conjunctival injection, periorbital swelling ENT exam: Present: normal exam, mucous membranes moist Neck exam: Present: normal inspection. Absent: tenderness, meningismus, lymphadenopathy Respiratory exam: Present: normal lung sounds bilaterally. Absent: respiratory distress, wheezes, rales, rhonchi, stridor Cardiovascular Exam: Present: regular rate, normal rhythm, normal heart sounds. Absent: systolic murmur, diastolic murmur, rubs, gallop, clicks GI/Abdominal exam: Present: soft, normal bowel sounds. Absent: distended, tenderness, guarding, rebound, rigid Extremities exam: Present: normal inspection, full ROM, normal capillary refill. Absent: tenderness, pedal edema, joint swelling, calf tenderness Back exam: Present: normal inspection Neurological exam: Present: alert, oriented X3, CN II-XII intact Psychiatric exam: Present: normal affect, normal mood Skin exam: Present: warm, dry, intact, normal color. Absent: rash Course Vital Signs 05/08/23 05/08/23 05/08/23 03:51 04:34 06:23 Temperature 97.7 F Pulse Rate 90 92 88 Respiratory 18 18 18 Rate Blood Pressure 209/115 169/102 140/84 O2 Sat by Pulse 98 100 100 Oximetry - Reevaluation(s) Reevaluation #1: 05/08/23 06:27 Records reviewed Reevaluation #2: 05/08/23 06:27 Patient feels improved with significant amount of shaking with altered mental status here in the ER Reevaluation #3: 05/08/23 06:27 Patient informed of results and questions answered - Consultations Consultation #1: Spoke with katie who agrees to admit this patient Medical Decision Making - Lab Data Result diagrams: 05/08/23 04:19 05/08/23 04:19 Lab Results 05/08/23 05/08/23 Range/Units 04:19 04:19 WBC 6.9 (3.8-10.6) k/uL RBC 4.41 (3.80-5.40) m/uL Hgb 12.4 (11.4-16.0) gm/dL Hct 36.9 (34.0-46.0) % MCV 83.6 (80.0-100.0) fL MCH 28.0 (25.0-35.0) pg MCHC 33.5 (31.0-37.0) g/dL RDW 15.7 H (11.5-15.5) % Plt Count 264 (150-450) k/uL MPV 7.6 Neutrophils % 77 % Lymphocytes % 14 % Monocytes % 6 % Eosinophils % 1 % Basophils % 1 % Neutrophils # 5.3 (1.3-7.7) k/uL Lymphocytes # 1.0 (1.0-4.8) k/uL Monocytes # 0.4 (0-1.0) k/uL Eosinophils # 0.1 (0-0.7) k/uL Basophils # 0.1 (0-0.2) k/uL Sodium 133 L (137-145) mmol/L Potassium 3.4 L (3.5-5.1) mmol/L Chloride 97 L (98-107) mmol/L Carbon Dioxide 18 L (22-30) mmol/L Anion Gap 18 mmol/L BUN 9 (7-17) mg/dL Creatinine 0.68 (0.52-1.04) mg/dL Est GFR (CKD-EPI)AfAm >90 (>60 ml/min/1.73 sqM) Est GFR (CKD-EPI)NonAf >90 (>60 ml/min/1.73 sqM) Glucose 83 (74-99) mg/dL Calcium 9.4 (8.4-10.2) mg/dL Phosphorus 3.8 (2.5-4.5) mg/dL Magnesium 1.2 L (1.6-2.3) mg/dL Total Bilirubin 2.6 H (0.2-1.3) mg/dL AST 110 H (14-36) U/L ALT 70 H (4-34) U/L Alkaline Phosphatase 148 H (38-126) U/L Total Protein 8.1 (6.3-8.2) g/dL Albumin 4.8 (3.5-5.0) g/dL Lipase 109 (23-300) U/L Serum Alcohol <10 mg/dL Disposition Clinical Impression: Alcohol withdrawal seizure, Alcohol withdrawal delirium, Alcohol withdrawal syndrome, Acute anxiety, Chronic alcohol abuse, Hypokalemia, Hypomagnesemia Disposition: ADMITTED IP TO THIS HOSP Condition: Fair Is patient prescribed a controlled substance at d/c from ED?: No Referrals: None,Stated [Primary Care Provider] - 1-2 days Time of Disposition: 06:00
[2023-05-08 04:30] LABS: Basophils # (A) 0.1 k/uL (0-0.2); Basophils % (A) 1 %; Eosinophils # (A) 0.1 k/uL (0-0.7); Eosinophils % (A) 1 %; HCT 36.9 % (34.0-46.0); HGB 12.4 gm/dL (11.4-16.0); Lymphocytes % (A) 14 %; MCHC 33.5 g/dL (31.0-37.0); MCV 83.6 fL (80.0-100.0); Mean Platelet Volume 7.6; Monocytes # (A) 0.4 k/uL (0-1.0); Monocytes % (A) 6 %; Neutrophils # (A) 5.3 k/uL (1.3-7.7); Neutrophils % (A) 77 %; Platelet Count 264 k/uL (150-450); RBC 4.41 m/uL (3.80-5.40); RDW 15.7 % (11.5-15.5); WBC 6.9 k/uL (3.8-10.6)
[2023-05-08 04:42] LABS: ALT 70 U/L (4-34); AST 110 U/L (14-36); African American GFR (CKD) >90 (>60 ml/min/1.73 sqM); Albumin 4.8 g/dL (3.5-5.0); Alcohol <10 mg/dL; Alkaline Phosphatase 148 U/L (38-126); Anion Gap 18 mmol/L; Blood Urea Nitrogen 9 mg/dL (7-17); Calcium 9.4 mg/dL (8.4-10.2); Carbon Dioxide 18 mmol/L (22-30); Chloride 97 mmol/L (98-107); Glucose 83 mg/dL (74-99); Lipase 109 U/L (23-300); Magnesium 1.2 mg/dL (1.6-2.3); Non-African American GFR(CKD) >90 (>60 ml/min/1.73 sqM); Phosphorus 3.8 mg/dL (2.5-4.5); Potassium 3.4 mmol/L (3.5-5.1); Sodium 133 mmol/L (137-145); Total Bilirubin 2.6 mg/dL (0.2-1.3); Total Protein 8.1 g/dL (6.3-8.2)
[2023-05-08] MEDS ORDERED: MAGNESIUM OXIDE 400 MG TAB PO STA ×2 (05:15)
[2023-05-08] MEDS ORDERED: POTASSIUM BICARBONATE/CIT AC 20 MEQ TABLET.EFF PO ONE (05:15)
[2023-05-08] MEDS ORDERED: ONDANSETRON 4 MG/2 ML VIAL IVP PRN (06:21)
[2023-05-08] MEDS ORDERED: NALOXONE 0.4 MG/ML 1 ML VIAL IV PRN (06:21)
[2023-05-08] MEDS ORDERED: SODIUM CHLORIDE 0.9% 1,000 ML IV SCH (06:30)
[2023-05-08 11:31] VITALS: TEMP 98.8
--- NOTE | 2023-05-08 14:31 | P.HPIM ---
History of Present Illness H&P Date: 05/08/23 Chief Complaint: Alcohol abuse 33-year-old woman with medical history of alcohol abuse with alcoholic hepatitis, GERD presented for evaluation of alcohol withdrawal. says that she had a relapse of alcohol cessation after being sober for approximately 4 months following her previous hospitalization where she was transferred to [facility] for alcoholic hepatitis. 2 weeks ago she started drinking a pint daily and presented to the hospital to facilitate supervised detoxification. Patient says her only complaints are some tremulousness, anxiety. She denies fevers, chills, nausea, vomiting, hallucinations, visual disturbances, chest pain, abdominal pain. In the emergency room, he was afebrile, 147/80, heart rate 79, 98% on room air. CBC was unremarkable. Basic metabolic panel showed hyponatremia to 133, potassium of 3.4, chloride 97, CO2 of 18, magnesium 1.2. Liver function test showed total bilirubin of 2.6, AST of 110, ALT 70. Alcohol level was less than 10. Patient says her last wrinkles more than 24 hours ago. Overnight, patient required a total of 2 mg of Ativan. She was admitted to observation for alcohol withdrawal. All Systems reviewed and pertinent positives and negatives noted in HPI, all other symptoms are negative Gen: in no apparent distress, resting comfortably in bed Eyes: PERRL, no scleral injection or icterus HENT: normocephalic, atraumatic, good hearing acuity, moist mucous membranes Neck: no tracheal deviation, full range of motion Resp: good air exchange, breathing comfortably with no accessory muscle use, no tactile fremitus CVS: good distal perfusion x 4, no pitting edema GI: soft, NTTP, ND, no hepatosplenomegaly : no suprapubic tenderness, no CVAT, clark catheter not present MSK: no clubbing, no cyanosis, no noted contractures of extremities Skin: no noted rashes, petechiae; temperature of skin is appropriate Neuro: moving all extremities without signs of weakness, CN II-XII intact Psych: cooperative, euthymic mood, insight and judgment intact Labs and imaging as above Assessment/plan: Alcohol dependence with Alcohol withdrawal disorder -Patient was admitted to observation and required 2 mg of Ativan total with well-controlled withdrawal symptoms -Patient was counseled on alcohol cessation, Alcoholics Anonymous, [place] [facility] -Patient will follow-up with primary care physician. Past Medical History Past Medical History: GERD/Reflux Additional Past Medical History / Comment(s): urgent care told pt she had an ulcer, alcohol hepatitis History of Any Multi-Drug Resistant Organisms: None Reported Past Surgical History: No Surgical Hx Reported Additional Past Surgical History / Comment(s): D&C Past Anesthesia/Blood Transfusion Reactions: No Reported Reaction Past Psychological History: No Psychological Hx Reported Smoking Status: Never smoker Past Alcohol Use History: Daily Past Drug Use History: None Reported - Past Family History Mother Additional Family Medical History / Comment(s): spina bifida, depression, anxiety Medications and Allergies Home Medications Medication Instructions Recorded Confirmed Type Folic Acid 1 mg PO DAILY 05/08/23 05/08/23 History Multivitamins, Thera [Multivitamin 1 tab PO DAILY 05/08/23 05/08/23 History (formulary)] Pantoprazole [Protonix] 40 mg PO DAILY 05/08/23 05/08/23 History Thiamine [Vitamin B-1] 100 mg PO DAILY #30 tablet 05/08/23 Rx Allergies Allergy/AdvReac Type Severity Reaction Status Date / Time ethinyl estradiol Allergy Unknown Verified 05/08/23 07:02 [From Loestrin 24 Fe] ferrous fumarate Allergy Unknown Verified 05/08/23 07:02 [From Loestrin 24 Fe] norethindrone acetate Allergy Unknown Verified 05/08/23 07:02 [From Loestrin 24 Fe] Physical Exam Osteopathic Statement: *. No significant issues noted on an osteopathic str uctural exam other than those noted in the History and Physical/Consult. Vitals: Vital Signs Temp Pulse Resp BP Pulse Ox 05/08/23 12:00 88 16 130/78 98 05/08/23 11:10 98.8 F 79 16 147/80 98 05/08/23 08:19 80 20 141/80 98 05/08/23 06:23 88 18 140/84 100 05/08/23 04:34 92 18 169/102 100 05/08/23 03:51 97.7 F 90 18 209/115 98 Intake and Output 05/07/23 05/08/23 05/08/23 22:59 06:59 14:59 Other: Weight 88.451 kg Results CBC & Chem 7: 05/08/23 04:19 05/08/23 04:19 Labs: Abnormal Lab Results - Last 24 Hours (Table) 05/08/23 05/08/23 Range/Units 04:19 04:19 RDW 15.7 H (11.5-15.5) % Sodium 133 L (137-145) mmol/L Potassium 3.4 L (3.5-5.1) mmol/L Chloride 97 L (98-107) mmol/L Carbon Dioxide 18 L (22-30) mmol/L Magnesium 1.2 L (1.6-2.3) mg/dL Total Bilirubin 2.6 H (0.2-1.3) mg/dL AST 110 H (14-36) U/L ALT 70 H (4-34) U/L Alkaline Phosphatase 148 H (38-126) U/L
[2023-05-08 14:47] VITALS: BP 150/98; PULSE 90; RESP 20
--- NOTE | 2023-05-08 14:47 | P.DS ---
Providers Date of admission: 05/08/23 06:22 Expected date of discharge: 05/08/23 Attending physician: Puja Montano MD Primary care physician: Stated None Hospital Course: Alcohol dependence with Alcohol withdrawal disorder 33-year-old woman with medical history of alcohol abuse with alcoholic hepatitis, GERD presented for evaluation of alcohol withdrawal. In the emergency room, he was afebrile, 147/80, heart rate 79, 98% on room air. CBC was unremarkable. Basic metabolic panel showed hyponatremia to 133, potassium of 3.4, chloride 97, CO2 of 18, magnesium 1.2. Liver function test showed total bilirubin of 2.6, AST of 110, ALT 70. Alcohol level was less than 10. Patient says her last wrinkles more than 24 hours ago. Overnight, patient required a total of 2 mg of Ativan. She was admitted to observation for alcohol wi thdrawal. -Patient was admitted to observation and required 2 mg of Ativan total with well-controlled withdrawal symptoms -Patient will follow-up with primary care physician. All Systems reviewed and pertinent positives and negatives noted in HPI, all other symptoms are negative Gen: in no apparent distress, resting comfortably in bed Eyes: PERRL, no scleral injection or icterus HENT: normocephalic, atraumatic, good hearing acuity, moist mucous membranes Neck: no tracheal deviation, full range of motion Resp: good air exchange, breathing comfortably with no accessory muscle use, no tactile fremitus CVS: good distal perfusion x 4, no pitting edema GI: soft, NTTP, ND, no hepatosplenomegaly : no suprapubic tenderness, no CVAT, clark catheter not present MSK: no clubbing, no cyanosis, no noted contractures of extremities Skin: no noted rashes, petechiae; temperature of skin is appropriate Neuro: moving all extremities without signs of weakness, CN II-XII intact Psych: cooperative, euthymic mood, insight and judgment intact Patient Condition at Discharge: Good Plan - Discharge Summary New Discharge Prescriptions: New RX: Thiamine [Vitamin B-1] 100 mg PO DAILY #30 tablet Continue RX: Pantoprazole [Protonix] 40 mg PO DAILY RX: Multivitamins, Thera [Multivitamin (formulary)] 1 tab PO DAILY RX: Folic Acid 1 mg PO DAILY Discharge Medication List RX: Folic Acid 1 mg PO DAILY 05/08/23 [History] RX: Multivitamins, Thera [Multivitamin (formulary)] 1 tab PO DAILY 05/08/23 [History] RX: Pantoprazole [Protonix] 40 mg PO DAILY 05/08/23 [History] RX: Thiamine [Vitamin B-1] 100 mg PO DAILY #30 tablet 05/08/23 [Rx] Follow up Appointment(s)/Referral(s): None,Stated [Primary Care Provider] - 1-2 days Patient Instructions/Handouts: Abuse of Alcohol (DC) Discharge/Stand Alone Forms: AA Meetings [facility], AA Meetings [place], Outpatient Counseling, In Substance Abuse Facilities Discharge Disposition: HOME SELF-CARE
== END 2023-05-08 14:35 | disposition home or self-care (01) ==
LOC: EC 03:47 → 4SSUR 06:22 → INTOOBSV 06:22 → 4SSUR 10:38
PROVIDERS: ADMIT Internal Medicine; ATTEND Internal Medicine
DX: F10.231 Alcohol dependence with withdrawal delirium (principal); K70.10 Alcoholic hepatitis without ascites; E87.6 Hypokalemia; E83.42 Hypomagnesemia; K21.9 Gastro-esophageal reflux disease without esophagitis; F41.9 Anxiety disorder, unspecified; Y90.0 Blood alcohol level of less than 20 mg/100 ml; Z79.899 Other long term (current) drug therapy
CPT/HCPCS: 96361; 96374; 99285; 36415; 80053; 83690; 83735; 84100; 85025; G0378; G0480; J2060; 80320

== ENCOUNTER 2024-02-23 17:05 | Observation (INO) | payer OTHER ==
--- NOTE | 2024-02-23 17:14 | ED ---
Seizure HPI <TipDorothy - Last Filed: 02/23/24 17:11> <Shelia Britton - Last Filed: 02/28/24 16:30> - General Stated Complaint: Possible seizure Time Seen by Provider: 02/23/24 17:11 - History of Present Illness Initial Comments: Quick note 33-year-old female presenting to the ER as she states she feels as though she is going to have a seizure. States she woke up this morning with generalized shakiness and "cold sweats". She has not had a seizure in many years and reports she is not on seizure medication. Denies chest pain, shortn ess of breath, abdominal pain. Past medical history includes "bad liver", no other medical conditions. (Dorothy Whelan) 33-year-old female with a history of alcohol abuse presents the emergency department chief complaint of alcohol withdrawal. Her last alcoholic beverage was yesterday around theirs of 8 to 9 PM. She had roughly 3 episodes of emesis yesterday evening. Today when she woke up she states that she began to feel shaky and experience cold sweats. States that she has a history of DTs from alcohol withdrawal. She is denying abdominal pain, chest pain, shortness of breath or difficulty breathing. Pay states that she does have elevated liver enzymes and takes multiple supplements including B vitamins for this. Patient is interested in going to rehabilitation after time in the hospital. (Shelia Britton) - Related Data Home Medications Medication Instructions Recorded Confirmed Folic Acid 1 mg PO DAILY 05/08/23 02/23/24 Pantoprazole [Protonix] 40 mg PO DAILY 05/08/23 02/23/24 Cephalexin [Keflex] 500 mg PO QID 02/23/24 02/23/24 Ibuprofen [Motrin] 800 mg PO Q8H PRN 02/23/24 02/23/24 Losartan Potassium 100 mg PO DAILY 02/23/24 02/23/24 Potassium Chloride ER [K-Dur 20] 20 meq PO DAILY 02/23/24 02/23/24 Previous Rx's Medication Instructions Recorded Thiamine [Vitamin B-1] 100 mg PO DAILY #30 tablet 05/08/23 Acamprosate Calcium [Campral] 666 mg PO TID #30 tab 02/27/24 Naltrexone Microspheres [Vivitrol] 50 mg PO ONCE #10 each 02/27/24 Allergies Allergy/AdvReac Type Severity Reaction Status Date / Time ethinyl estradiol Allergy Unknown Verified 02/23/24 17:15 [From Loestrin 24 Fe] ferrous fumarate Allergy Unknown Verified 02/23/24 17:15 [From Loestrin 24 Fe] norethindrone acetate Allergy Unknown Verified 02/23/24 17:15 [From Loestrin 24 Fe] Review of Systems ROS Other: All systems not noted in ROS Statement are negative. <Dorothy Whelan - Last Filed: 02/23/24 17:11> ROS Other: All systems not noted in ROS Statement are negative. <Shelia Britton - Last Filed: 02/28/24 16:30> ROS Statement: Those systems with pertinent positive or pertinent negative responses have been documented in the HPI. Past Medical History Past Medical History: GERD/Reflux Additional Past Medical History / Comment(s): urgent care told pt she had an ulcer, alcohol hepatitis History of Any Multi-Drug Resistant Organisms: None Reported Past Surgical History: No Surgical Hx Reported Additional Past Surgical History / Comment(s): D&C Past Anesthesia/Blood Transfusion Reactions: No Reported Reaction Past Psychological History: No Psychological Hx Reported Smoking Status: Never smoker Past Alcohol Use History: Daily Past Drug Use History: None Reported - Past Family History Mother Additional Family Medical History / Comment(s): spina bifida, depression, anxiety <Dorothy Whelan - Last Filed: 02/23/24 17:11> General Exam <Dorothy Whelan - Last Filed: 02/23/24 17:11> General appearance: alert, in no apparent distress, anxious Eye exam: Present: normal appearance, PERRL, EOMI. Absent: scleral icterus, conjunctival injection, periorbital swelling ENT exam: Present: normal exam, mucous membranes moist Neck exam: Present: normal inspection. Absent: tenderness, meningismus, lymphadenopathy Respiratory exam: Present: normal lung sounds bilaterally. Absent: respiratory distress, wheezes, rales, rhonchi, stridor Cardiovascular Exam: Present: regular rate, normal rhythm, normal heart sounds. Absent: systolic murmur, diastolic murmur, rubs, gallop, clicks GI/Abdominal exam: Present: soft, tenderness (mild RUQ), normal bowel sounds. Absent: distended, guarding, rebound, rigid Extremities exam: Present: normal inspection, full ROM, normal capillary refill. Absent: tenderness, pedal edema, joint swelling, calf tenderness Back exam: Present: normal inspection Psychiatric exam: Present: normal mood, flat affect <Shelia Britton - Last Filed: 02/28/24 16:30> - General Exam Comments Initial Comments: Visual Physical Exam General: Well-appearing, nontoxic, no acute distress. Head: Normocephalic, atraumatic Eyes: PERRLA, EOMI ENT: Airway patent Chest: Nonlabored breathing Skin: No visual rash, normal skin tone Neuro: Alert and oriented 3 Musculoskeletal: No gross abnormalities (Dorothy Whelan) Course Vital Signs 02/23/24 02/23/24 17:16 19:44 Temperature 98.2 F Pulse Rate 96 87 Respiratory 20 20 Rate Blood Pressure 153/91 145/81 O2 Sat by Pulse 98 99 Oximetry Medical Decision Making <Dorothy Whelan - Last Filed: 02/23/24 17:11> - Lab Data Result diagrams: 02/23/24 18:00 02/26/24 02:45 <Shelia Britton - Last Filed: 02/28/24 16:30> - Medical Decision Making I completed the quick note portion of this chart signed Dorothy Whelan PA-C (Dorothy Whelan) Was pt. sent in by a medical professional or institution (NAVA Peña, GUARD DRIVER, urgent care, hospital, or alf...) When possible be specific @ -No Did you speak to anyone other than the patient for history (EMS, parent, family, police, friend...)? What history was obtained from this source @ -No Did you review nursing and triage notes (agree or disagree)? Why? @ -I reviewed and agree with nursing and triage notes Were old charts reviewed (outside hosp., previous admission, EMS record, old EKG, old radiological studies, urgent care reports/EKG's, alf records)? Report findings @ -No old charts were reviewed Differential Diagnosis (chest pain, altered mental status, abdominal pain women, abdominal pain men, vaginal bleeding, weakness, fever, dyspnea, syncope, headache, dizziness, GI bleed, back pain, seizure, CVA, palpatations, mental health, musculoskeletal)? @ -Differential Mental Health Depression, anxiety, bipolar, psychosis, schizophrenia, borderline personality, situational depression, adjustment disorder, behavioral disorder, brain tumor, malingering, substance abuse, encephalopathy, medication reaction, dementia, hypothyroidism, degenerative neurologic disorder, lupus.... This is not meant to be all-inclusive list EKG interpreted by me (3pts min.). @ -completed @1741 sinus rhythm with a ventricular rate of 83, parable 167, QRS 108, QTc 393. No acute signs of ischemia. X-rays interpreted by me (1pt min.). @ -None done CT interpreted by me (1pt min.). @ -None done U/S interpreted by me (1pt. min.). @ -None done What testing was considered but not performed or refused? (CT, X-rays, U/S, labs)? Why? @ -None What meds were considered but not given or refused? Why? @ -None Did you discuss the management of the patient with other professionals (professionals i.e. , PA, GUARD DRIVER, lab, RT, psych nurse, neonatal social worker, flight test data acquisition technician, teacher, command and control officer, piano case maker)? Give summary @ -internal medicine physician for admission. Was smoking cessation discussed for >3mins.? @ -No Was critical care preformed (if so, how long)? @ -No Were there social determinants of health that impacted care today? How? (Homelessness, low income, unemployed, alcoholism, drug addiction, transportation, low edu. Level, literacy, decrease access to med. care, fdc, rehab)? @ -No Was there de-escalation of care discussed even if they declined (Discuss DNR or withdrawal of care, Hospice)? DNR status @ -No What co-morbidities impacted this encounter? (DM, HTN, Smoking, COPD, CAD, Cancer, CVA, ARF, Chemo, Hep., AIDS, mental health diagnosis, sleep apnea, morbid obesity)? @ -None Was patient admitted / discharged? Hospital course, mention meds given and route, prescriptions, significant lab abnormalities, going to OR and other pertinent info. @ -admitted. 33-year-old female with alcohol abuse disorder. Patient was originally evaluated in the front waiting room as a quick note. On my evaluation the patient is noted to be quite tremulous and anxious. Abdominal examination remarkable for mild right upper quadrant tenderness. Patient will b e placed on CIWA protocol primitively as CIWA and triage solorio resulted in 10. Patient is prophylactically provided with a liter fluid bolus pending laboratory results. CMP remarkable for an elevated creatinine of 2.08, mild acidosis with a CO2 of 19, magnesium 1.2, transaminitis with an AST of 272 ALT of 150, serum alcohol level of 20 Undiagnosed new problem with uncertain prognosis? @ -No Drug Therapy requiring intensive monitoring for toxicity (Heparin, Nitro, Insulin, Cardizem)? @ -No Were any procedures done? @ -No Diagnosis/symptom? @ -alcohol abuse, alcohol withdrawal Acute, or Chronic, or Acute on Chronic? @ -acute Uncomplicated (without systemic symptoms) or Complicated (systemic symptoms)? @ -complicated Side effects of treatment? @ -No Exacerbation, Progression, or Severe Exacerbation? @ -No Poses a threat to life or bodily function? How? (Chest pain, USA, MD, pneumonia, PE, COPD, DKA, ARF, appy, cholecystitis, CVA, Diverticulitis, Homicidal, Suicidal, threat to staff... and all critical care pts) @ -yes (Shelai Britton) - Lab Data Lab Results 02/23/24 02/23/24 02/23/24 Range/Units 18:00 18:00 18:00 WBC 6.5 (3.8-10.6) k/uL RBC 4.00 (3.80-5.40) m/uL Hgb 12.3 (11.4-16.0) gm/dL Hct 36.2 (34.0-46.0) % MCV 90.5 (80.0-100.0) fL MCH 30.8 (25.0-35.0) pg MCHC 34.0 (31.0-37.0) g/dL RDW 16.5 H (11.5-15.5) % Plt Count 234 (150-450) k/uL MPV 7.9 Neutrophils % 81 % Lymphocytes % 10 % Monocytes % 6 % Eosinophils % 1 % Basophils % 1 % Neutrophils # 5.3 (1.3-7.7) k/uL Lymphocytes # 0.7 L (1.0-4.8) k/uL Monocytes # 0.4 (0-1.0) k/uL Eosinophils # 0.1 (0-0.7) k/uL Basophils # 0.1 (0-0.2) k/uL Anisocytosis Slight Sodium 139 (137-145) mmol/L Potassium 4.7 (3.5-5.1) mmol/L Chloride 106 (98-107) mmol/L Carbon Dioxide 19 L (22-30) mmol/L Anion Gap 14 mmol/L BUN 13 (7-17) mg/dL Creatinine 2.08 H (0.52-1.04) mg/dL Est GFR (CKD-EPI)AfAm 35 (>60 ml/min/1.73 sqM) Est GFR (CKD-EPI)NonAf 30 (>60 ml/min/1.73 sqM) Glucose 118 H (74-99) mg/dL Plasma Lactic Acid Adrian 1.5 (0.7-2.0) mmol/L Calcium 9.0 (8.4-10.2) mg/dL Phosphorus 3.1 (2.5-4.5) mg/dL Magnesium 1.2 L (1.6-2.3) mg/dL Total Bilirubin 1.7 H (0.2-1.3) mg/dL AST 272 H (14-36) U/L ALT 150 H (4-34) U/L Alkaline Phosphatase 122 (38-126) U/L Total Protein 8.6 H (6.3-8.2) g/dL Albumin 5.0 (3.5-5.0) g/dL Lipase 128 (23-300) U/L Serum Alcohol 20 mg/dL Disposition <Dorothy Whelan - Last Filed: 02/23/24 17:11> Decision to Admit Reason: Admit from EC Decision Date: 02/23/24 Decision Time: 19:11 <Shelia Britton - Last Filed: 02/28/24 16:30> Clinical Impression: Alcohol abuse, Transaminitis, Alcohol abuse with withdrawal Disposition: ADMITTED IP TO THIS [facility] Condition: Serious
[2024-02-23] MEDS ORDERED: LORazepam 1 MG TAB PO PRN ×2 (17:24)
[2024-02-23] MEDS: SODIUM CHLORIDE 0.9% 1,000 ML IV STA ×2 (18:00→19:40)
[2024-02-23] MEDS: LORazepam 1 MG TAB PO PRN ×2 (18:01→23:40)
[2024-02-23 18:11] LABS: Anisocytosis Slight; Basophils # (A) 0.1 k/uL (0-0.2); Basophils % (A) 1 %; Eosinophils # (A) 0.1 k/uL (0-0.7); Eosinophils % (A) 1 %; HCT 36.2 % (34.0-46.0); HGB 12.3 gm/dL (11.4-16.0); Lymphocytes # (A) 0.7 k/uL (1.0-4.8); Lymphocytes % (A) 10 %; MCH 30.8 pg (25.0-35.0); MCV 90.5 fL (80.0-100.0); Mean Platelet Volume 7.9; Monocytes # (A) 0.4 k/uL (0-1.0); Monocytes % (A) 6 %; Neutrophils # (A) 5.3 k/uL (1.3-7.7); Neutrophils % (A) 81 %; Platelet Count 234 k/uL (150-450); RDW 16.5 % (11.5-15.5); WBC 6.5 k/uL (3.8-10.6)
[2024-02-23 18:31] LABS: ALT 150 U/L (4-34); AST 272 U/L (14-36); African American GFR (CKD) 35 (>60 ml/min/1.73 sqM); Alcohol 20 mg/dL; Alkaline Phosphatase 122 U/L (38-126); Anion Gap 14 mmol/L; Blood Urea Nitrogen 13 mg/dL (7-17); Carbon Dioxide 19 mmol/L (22-30); Chloride 106 mmol/L (98-107); Glucose 118 mg/dL (74-99); Lipase 128 U/L (23-300); Magnesium 1.2 mg/dL (1.6-2.3); Non-African American GFR(CKD) 30 (>60 ml/min/1.73 sqM); Phosphorus 3.1 mg/dL (2.5-4.5); Potassium 4.7 mmol/L (3.5-5.1); Sodium 139 mmol/L (137-145); Total Bilirubin 1.7 mg/dL (0.2-1.3); Total Protein 8.6 g/dL (6.3-8.2)
[2024-02-23] MEDS ORDERED: LORazepam 2 MG/ML INJ IV PRN (18:45)
[2024-02-23] MEDS: MAGNESIUM OXIDE 400 MG TAB PO STA (18:56)
[2024-02-23] MEDS: MAGNESIUM SULFATE-D5W PMX 1 GM in DEXTROSE/WATER 1 100ML.BAG IVPB SCH (18:56)
[2024-02-23] MEDS ORDERED: NALOXONE 0.4 MG/ML 1 ML VIAL IV PRN (19:11)
[2024-02-23] MEDS ORDERED: IBUPROFEN 400 MG TAB PO PRN (19:11)
[2024-02-23] MEDS: LORazepam 0.5 MG TAB PO PRN (19:47)
[2024-02-24] MEDS: ONDANSETRON 4 MG/2 ML VIAL IVP PRN (09:26)
[2024-02-24] MEDS: PANTOPRAZOLE 40 MG/10 ML VIAL IV SCH (10:06)
[2024-02-24] MEDS: LOSARTAN 50 MG TAB PO SCH (13:24)
[2024-02-24] MEDS: THIAMINE 100 MG TAB PO SCH (13:24)
--- NOTE | 2024-02-24 22:14 | PN ---
PROGRESS NOTE DATE OF SERVICE: 02/24/2024 CHIEF COMPLAINT: DTs. HISTORY OF PRESENT ILLNESS: This lady is doing fairly well. She is not in DTs. Liver function studies are quite elevated. PHYSICAL EXAMINATION: ABDOMEN: Slightly distended and nontender. CHEST: Clear. IMPRESSION: 1. Acute alcohol intoxication. 2. DTs. 3. Alcoholic hepatitis. PLAN: Continue with IV fluids and continue to monitor her liver functions. MMODL / IJN: [id number] /
--- NOTE | 2024-02-25 00:12 | CONS ---
CONSULTATION CHIEF COMPLAINT: Acute alcoholism and DTs. HISTORY OF PRESENT ILLNESS: This is another admission for this 33-year-old chronic alcoholic with alcoholic cirrhosis. She came to the emergency room in [facility] and was admitted. REVIEW OF SYSTEMS: She has had not any diplopia. She has had no chest pain, shortness of breath, abdominal pain, nausea, vomiting, hematemesis, melena, hematochezia, etc. She felt tremulous and thought she might be having a seizure. 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 Remainder of the history is unremarkable. ALLERGIES: She is not allergic to any medication and she has not been on any. LABORATORY STUDIES: Revealed AST of 272 and ALT of 150 with a bilirubin of 1.7. PHYSICAL EXAMINATION: VITAL SIGNS: Blood pressure is 153/91, pulse is 89, and respirations are 34. GENERAL: She appeared to be obese, in no acute distress. Skin color is normal. SKIN: Warm and dry. LYMPH NODES: Not enlarged. HEAD, EARS, EYES, NOSE, MOUTH, AND THROAT: Normal. NECK: Veins not distended. Thyroid is not enlarged. CHEST: Clear. CARDIAC: Normal. ABDOMEN: Soft and nontender. EXTREMITIES: Normal. IMPRESSION: 1. DTs. 2. Chronic alcoholism. 3. Alcoholic cirrhosis. 4. Hypertension. PLAN: 1. Bedrest. 2. IV fluids. 3. CIWA protocol. 4. Followup for hypertension and acute liver injury. MMODL / IJN: [id number] /
[2024-02-25] MEDS ORDERED: PANTOPRAZOLE 40 MG TABLET PO SCH (09:00)
[2024-02-25] MEDS: FOLIC ACID 1 MG TAB PO SCH (09:03)
[2024-02-25] MEDS: POTASSIUM CHLORIDE ER 20 MEQ TAB.ER PO SCH (09:03)
[2024-02-25 12:29] LABS: ALT 101 U/L (4-34); AST 137 U/L (14-36); African American GFR (CKD) 48 (>60 ml/min/1.73 sqM); Albumin 4.1 g/dL (3.5-5.0); Albumin/Globulin Ratio 1.3; Alkaline Phosphatase 119 U/L (38-126); Anion Gap 5 mmol/L; Blood Urea Nitrogen 18 mg/dL (7-17); Calcium 8.8 mg/dL (8.4-10.2); Carbon Dioxide 22 mmol/L (22-30); Chloride 109 mmol/L (98-107); Globulin 3.1 g/dL; Glucose 119 mg/dL (74-99); Magnesium 1.5 mg/dL (1.6-2.3); Non-African American GFR(CKD) 42 (>60 ml/min/1.73 sqM); Phosphorus 3.3 mg/dL (2.5-4.5); Potassium 4.5 mmol/L (3.5-5.1); Sodium 136 mmol/L (137-145); Total Bilirubin 2.6 mg/dL (0.2-1.3); Total Protein 7.2 g/dL (6.3-8.2)
[2024-02-25] MEDS ORDERED: Magnesium Replacement Protocol 1 EACH MISC MISCELLANE PRN (20:15)
[2024-02-25] MEDS: MAGNESIUM SULFATE-D5W PMX 1 GM in DEXTROSE/WATER 1 100ML.BAG IVPB ONE ×2 (20:53→21:48)
[2024-02-25] MEDS: DEXTROSE 5%-0.45% NACL 1,000 ML IV SCH (22:44)
--- NOTE | 2024-02-26 02:38 | PN ---
PROGRESS NOTE DATE OF SERVICE: 02/25/2024 CHIEF COMPLAINT: Acute alcohol intoxication and alcoholic hepatitis. HISTORY OF PRESENT ILLNESS: This lady is feeling a little bit better. Her blood pressure is up slightly. Her liver enzymes are down, but bilirubin is up slightly at 2.6. AST is 137 and ALT is 101. PHYSICAL EXAMINATION: VITAL SIGNS: Blood pressure is 172/90 and then 146/95. HEAD, EARS, EYES, NOSE, MOUTH, AND THROAT: Normal. CHEST: Clear. CARDIAC: Normal. ABDOMEN: Soft and nontender. IMPRESSION: 1. Acute alcohol intoxication. 2. Chronic alcoholism. 3. Alcoholic hepatitis. 4. Cirrhosis. 5. Hypertension. PLAN: Continue to monitor her blood pressure and her liver function studies before discharge. MMODL / IJN: [id number] /
[2024-02-26 08:51] LABS: ALT 103 U/L (8-44); AST 117 U/L (13-35); Albumin 4.2 g/dL (3.8-4.9); Albumin/Globulin Ratio 1.56 Ratio (1.60-3.17); Alkaline Phosphatase 154 U/L (41-126); Blood Urea Nitrogen 18.3 mg/dL (9.0-27.0); Calcium 9.2 mg/dL (8.7-10.3); Carbon Dioxide 21.1 mmol/L (21.6-31.8); Chloride 101 mmol/L (96-109); Globulin 2.7 g/dL (1.6-3.3); Glucose 141 mg/dL (70-110); Potassium 4.4 mmol/L (3.5-5.5); Sodium 134 mmol/L (135-145); Total Bilirubin 1.4 mg/dL (0.3-1.2); Total Protein 6.9 g/dL (6.2-8.2)
[2024-02-26 08:52] LABS: Magnesium 1.9 mg/dL (1.5-2.4)
[2024-02-27] MEDS: PANTOPRAZOLE 40 MG TABLET PO SCH (06:24)
[2024-02-27] MEDS ORDERED: NALTREXONE MICROSPHERES 380 MG VIAL (NO COST - VIVITROL) IM ONE ×2 (11:29→11:45)
[2024-02-27 13:00] VITALS: BP 128/84; PULSE 93; RESP 17; TEMP 97.8
[2024-02-27] MEDS ORDERED: ACAMPROSATE CALCIUM 333 MG TABLET.DR PO SCH (16:00)
--- NOTE | 2024-02-28 00:03 | PN ---
PROGRESS NOTE DATE OF SERVICE: 02/26/2024 CHIEF COMPLAINT: 1. Acute alcoholic hepatitis. 2. Acute alcohol intoxication. 3. Chronic alcoholism. 4. Alcoholic hepatitis. 5. Cirrhosis. 6. Hypertension. PLAN: Repeat laboratory studies and, hopefully, will be able to discharge in the next day or 2. KRITI / GERI: [id number] /
--- NOTE | 2024-02-28 06:22 | DS ---
DISCHARGE SUMMARY CHIEF COMPLAINT: Acute alcohol intoxication, alcoholic hepatitis, and cirrhosis. HISTORY OF PRESENT ILLNESS AND PHYSICAL EXAM: Details of this lady's history and physical can be found in the initial workup. LABORATORY STUDIES: While she was in the hospital, she had laboratory studies, details of which can be found in the laboratory section of her chart. COURSE IN THE HOSPITAL: After admission, she was placed on bedrest, started on intravenous fluids, and frequent monitoring of her liver function studies. AST and ALT slowly came down. Alkaline phosphatase went up the 1st day, but then started trending down. Bilirubin also started trending down. She was doing well and was stable and it was felt that she could go home on the . She will go home on her usual diet and activity and she will be given the trial on Campral 666 mg 3 times a day and Vivitrol 50 mg once a day. She was also encouraged to go to . She will be seen in the office for followup in a few days. FINAL DIAGNOSES: 1. Acute alcohol intoxication. 2. Chronic alcoholism. 3. Alcoholic hepatitis. 4. Cirrhosis. 5. Chronic kidney disease. 6. Hypertension. OPERATIONS: None. CONSULTATION: None. She is improved. MMODL / IJN: [id number] /
--- NOTE | 2024-03-11 13:57 | HP ---
HISTORY AND PHYSICAL CHIEF COMPLAINT: Acute alcohol intoxication, chronic alcoholism, cirrhosis, and hypertension. I have already dictated this. So if you have that, you can delete this, if not use it. HISTORY OF PRESENT ILLNESS: This lady has a long-standing history of serious alcohol abuse despite her age. She has alcoholic hepatitis and cirrhosis. She presented to the emergency room intoxicated once again with elevated blood pressure. REVIEW OF SYSTEMS: She denies headaches, chest pain, shortness of breath, nausea, vomiting, jaundice, hematemesis, melena, hematochezia, urinary complaints, seizures, etc. Past medical history, family history, personal and social histories are all otherwise unremarkable and noncontributory or unchanged. PHYSICAL EXAMINATION: VITAL SIGNS: Blood pressure is 152/100 with a pulse of 67, respirations of 35, and she is afebrile. GENERAL: She appeared to be slightly overweight and in no acute distress. She was not jaundiced. HEAD, EARS, EYES, NOSE, MOUTH, AND THROAT: Normal. CHEST: Clear. CARDIAC: Normal. ABDOMEN: Soft and slightly distended, but nontender. Liver was palpable. EXTREMITIES: Normal. IMPRESSION: 1. Acute alcohol intoxication. 2. Chronic alcoholism. 3. Hypertension. 4. Alcoholic hepatitis. 5. Cirrhosis. PLAN: 1. Bedrest. 2. IV fluids. 3. CIWA protocol. 4. Uncontrolled hypertension. MMODL / IJN: [id number] /
== END 2024-02-27 16:03 | disposition home or self-care (01) ==
LOC: EC 17:05 → 6NMEDSUR 20:35 → 4SSUR 21:41
PROVIDERS: ADMIT Family Medicine; ATTEND Family Medicine
DX: F10.239 Alcohol dependence with withdrawal, unspecified (principal); F10.229 Alcohol dependence with intoxication, unspecified; K70.30 Alcoholic cirrhosis of liver without ascites; K70.10 Alcoholic hepatitis without ascites; I12.9 Hypertensive chronic kidney disease with stage 1 through stage 4 chronic kidney disease, or unspecified chronic kidney disease; N18.9 Chronic kidney disease, unspecified; E87.20 Acidosis, unspecified; Y90.1 Blood alcohol level of 20-39 mg/100 ml; Z79.899 Other long term (current) drug therapy
CPT/HCPCS: 96376 ×3; 96361 ×3; 96366 ×2; 96375; 96365; 99285; 36415; 93005; 80053 ×3; 83605; 83690; 83735 ×3; 84100 ×2; 85025; 81025; G0378 ×6; G0480; J2405; J3475 ×2; J2470 ×3; 80320

== ENCOUNTER 2024-07-24 14:12 | Observation (INO) | payer OTHER ==
--- NOTE | 2024-07-24 14:39 | XR ---
EXAMINATION TYPE: XR chest 2V DATE OF EXAM: 07/24/2024 2:34 PM COMPARISON: Chest radiographs from 01/08/2021 TECHNIQUE: XR chest 2V Frontal and lateral views of the chest. CLINICAL INDICATION:Female, 34 years old with history of cough x 1 week; FINDINGS: Lungs/Pleura: There is no evidence of pleural effusion, focal consolidation, or pneumothorax. Pulmonary vascularity: Unremarkable. Heart/mediastinum: Cardiomediastinal silhouette is unremarkable. Musculoskeletal: No acute osseous pathology. IMPRESSION: No acute cardiopulmonary disease/process. [facility], , 07/24/2024 2:37 PM
[2024-07-24 15:02] LABS: Influenza A Not Detected (Not Detectd); Influenza B Not Detected (Not Detectd); RSV Not Detected (Not Detectd)
--- NOTE | 2024-07-24 15:31 | ED ---
URI HPI - General Chief Complaint: Upper Respiratory Infection Stated Complaint: cough Time Seen by Provider: 07/24/24 14:41 Source: patient, RN notes reviewed Mode of arrival: ambulatory Limitations: no limitations - History of Present Illness Initial Comments: This is a 34-year-old female who presents to the emergency department for coughing, congestion, and weakness. States that over the last week she has had coughing and congestion. Yesterday and today she started to notice specks of bright red blood when she would cough. States that she feels very weak and has no energy. Reports some shortness of breath. Today when she was walking down the hallway, states that she had to stop to catch her breath. Denies any chest pain. Denies any fevers/chills or sick contacts. She does also note that she has history of alcoholism and typically has 2 pints daily. She last had 1 pint last night and is concerned about going through withdrawals. MD Complaint: cough, nasal congestion - Related Data Home Medications Medication Instructions Recorded Confirmed Folic Acid 1 mg PO DAILY 05/08/23 07/24/24 Pantoprazole [Protonix] 40 mg PO BID 05/08/23 07/24/24 Cyanocobalamin (Vitamin B-12) 1,000 mcg PO DAILY 07/24/24 07/24/24 [Vitamin B-12] Losartan [Cozaar] 50 mg PO DAILY 07/24/24 07/24/24 Previous Rx's Medication Instructions Recorded Thiamine [Vitamin B-1] 100 mg PO DAILY #30 tablet 05/08/23 Allergies Allergy/AdvReac Type Severity Reaction Status Date / Time ethinyl estradiol Allergy Unknown Verified 07/24/24 18:14 [From Loestrin 24 Fe] ferrous fumarate Allergy Unknown Verified 07/24/24 18:14 [From Loestrin 24 Fe] norethindrone acetate Allergy Unknown Verified 07/24/24 18:14 [From Loestrin 24 Fe] Review of Systems ROS Statement: Those systems with pertinent positive or pertinent negative responses have been documented in the HPI. ROS Other: All systems not noted in ROS Statement are negative. Past Medical History Past Medical History: GERD/Reflux, Hypertension, Liver Disease Additional Past Medical History / Comment(s): urgent care told pt she had an ulcer, alcohol hepatitis History of Any Multi-Drug Resistant Organisms: None Reported Past Surgical History: No Surgical Hx Reported Additional Past Surgical History / Comment(s): D&C Past Anesthesia/Blood Transfusion Reactions: No Reported Reaction, Unable to Obtain Past Psychological History: No Psychological Hx Reported Smoking Status: Current some day smoker Past Alcohol Use History: Abuse, Daily, Heavy Past Drug Use History: None Reported - Past Family History Mother Additional Family Medical History / Comment(s): spina bifida, depression, anxiety General Exam Limitations: no limitations General appearance: alert, in no apparent distress Head exam: Present: atraumatic, normocephalic, normal inspection Respiratory exam: Present: normal lung sounds bilaterally. Absent: respiratory distress, wheezes, rales, rhonchi, stridor Cardiovascular Exam: Present: regular rate, normal rhythm GI/Abdominal exam: Present: soft, normal bowel sounds. Absent: distended, tenderness, guarding, rebound, rigid Neurological exam: Present: alert, oriented X3, CN II-XII intact Psychiatric exam: Present: normal affect, normal mood Skin exam: Present: warm, dry, intact, normal color. Absent: rash Course Vital Signs 07/24/24 07/24/24 07/24/24 14:17 16:46 17:57 Temperature 97.8 F 99.1 F Pulse Rate 104 H 93 92 Respiratory 18 16 18 Rate Blood Pressure 108/66 131/78 111/57 O2 Sat by Pulse 98 99 95 Oximetry 07/24/24 07/24/24 07/24/24 19:00 21:28 22:59 Temperature 97.6 F Pulse Rate 109 H 101 H 94 Respiratory 18 18 18 Rate Blood Pressure 107/70 128/78 114/55 O2 Sat by Pulse 95 97 96 Oximetry Medical Decision Making - Medical Decision Making This is a 34-year-old female who presents to the emergency department for coughing and congestion. Was pt. sent in by a medical professional or institution? @ -No Did you speak to anyone other than the patient for history? @ -No Did you review nursing and triage notes? @ -Yes, and I agree, it is accurate with regards to the patient's symptoms. Were old charts reviewed? @ -No Differential Diagnosis? @ -Differential Cough: Influenza, Covid, RSV, croup, allergic rhinitis, GERD, pneumonia, bronchitis, COPD, viral pharyngitis, streptococcal pharyngitis, this is not meant to be an all-inclusive list. EKG interpreted by me (3pts min.)? @ -EKG interpreted by me demonstrating the following: Sinus rhythm. Ventricular rate 87 bpm, NJ interval 180 ms, QRS duration 120 ms, QTc 393 ms. X-rays interpreted by me (1pt min.)? @ -Chest x-ray obtained, my interpretation identifies no localized consolidatio ns or infiltrates. CT interpreted by me (1pt min.)? @ -CTA of the chest obtained. My interpretation identifies no evidence of a pulmonary embolus. U/S interpreted by me (1pt. min.)? @ -Renal ultrasound performed. My interpretation identifies no evidence of hydronephrosis. What testing was considered but not performed? (CT, X-rays, U/S, labs)? Why? @ -None What meds were considered but not given? Why? @ -None Did you discuss the management of the patient with other professionals? @ -Yes, Dr. Gallardo, who accepts the patient for admission. Did you reconcile home meds? @ -No Was smoking cessation discussed for >3mins.? @ -No Was critical care preformed (if so, how long)? @ -No Were there social determinants of health that impacted care today? How? (Homelessness, low income, unemployed, alcoholism, drug addiction, transportation, low edu. Level, literacy, decrease access to med. care, longterm, rehab)? @ -No Was there de-escalation of care discussed even if they declined? (Discuss DNR or withdrawal of care, Hospice)? @ -No What co-morbidities impacted this encounter? (DM, HTN, Smoking, COPD, CAD, Cancer, CVA, Hep., AIDS, mental health diagnosis, sleep apnea, morbid obesity)? @ -Alcoholism, CKD Was patient admitted / discharged? @ -Admitted. Lab work demonstrates elevated LFTs consistent with prior values and patient's history of alcoholism. She also has renal disease with a creatinine of 2.59 and eGFR of 23. D-dimer also returned elevated at 1.08. COVID, influenza, and RSV testing negative. Chest x-ray reveals no acute process. CTA of the chest obtained. Evaluation was limited due to bolus timing, however no centralized PE was identified. This had also been performed prior to renal function resulting. There is concern for patient's kidney function. It appears that in January 2024 she suddenly developed renal disease. Patient denies following up with nephrology or having her kidneys evaluated otherwise. She is also starting to experience withdrawals and has a history of DTs. Patient subsequently admitted to medicine for alcohol withdrawals and jamin l failure. Renal ultrasound and urinalysis ordered with results pending at the time of admission. She was also started on maintenance fluids. Consult placed for nephrology. [facility] protocol initiated as well. Case discussed with ED attending Dr. Granda. Undiagnosed new problem with uncertain prognosis? @ -None Drug Therapy requiring intensive monitoring for toxicity (Heparin, Nitro, Insulin, Cardizem)? @ -None Were any procedures done? @ -None Diagnosis/symptom? @ -Alcohol withdrawals, renal failure Acute, or Chronic, or Acute on Chronic? @ -Acute Uncomplicated (without systemic symptoms) or Complicated (systemic symptoms)? @ -Complicated Side effects of treatment? @ -None Exacerbation, Progression, or Severe Exacerbation] @ -Not applicable Poses a threat to life or bodily function? @ -Yes, further renal failure can be life-threatening - Lab Data Result diagrams: 07/24/24 15:22 07/24/24 15:22 Lab Results 07/24/24 07/24/24 07/24/24 Range/Units 14:21 15:22 15:22 WBC 4.3 (3.8-10.6) k/uL RBC 3.75 L (3.80-5.40) m/uL Hgb 11.2 L (11.4-16.0) gm/dL Hct 35.9 (34.0-46.0) % MCV 95.9 (80.0-100.0) fL MCH 29.8 (25.0-35.0) pg MCHC 31.1 (31.0-37.0) g/dL RDW 14.9 (11.5-15.5) % Plt Count 215 (150-450) k/uL MPV 8.2 Neutrophils % 50 % Lymphocytes % 36 % Monocytes % 6 % Eosinophils % 3 % Basophils % 1 % Neutrophils # 2.2 (1.3-7.7) k/uL Lymphocytes # 1.6 (1.0-4.8) k/uL Monocytes # 0.3 (0-1.0) k/uL Eosinophils # 0.1 (0-0.7) k/uL Basophils # 0.1 (0-0.2) k/uL D-Dimer 1.02 H (<0.60) mg/L FEU Sodium (137-145) mmol/L Potassium (3.5-5.1) mmol/L Chloride (98-107) mmol/L Carbon Dioxide (22-30) mmol/L Anion Gap mmol/L BUN (7-17) mg/dL Creatinine (0.52-1.04) mg/dL Est GFR (CKD-EPI)AfAm (>60 ml/min/1.73 sqM) Est GFR (CKD-EPI)NonAf (>60 ml/min/1.73 sqM) Glucose (74-99) mg/dL Calcium (8.4-10.2) mg/dL Phosphorus (2.5-4.5) mg/dL Magnesium (1.6-2.3) mg/dL Total Bilirubin (0.2-1.3) mg/dL AST (14-36) U/L ALT (4-34) U/L Alkaline Phosphatase (38-126) U/L Troponin I (0.000-0.034) ng/mL Total Protein (6.3-8.2) g/dL Albumin (3.5-5.0) g/dL HCG, Qual Influenza Type A (PCR) Not Detected (Not Detectd) Influenza Type B (PCR) Not Detected (Not Detectd) RSV (PCR) Not Detected (Not Detectd) SARS-CoV-2 (PCR) Not Detected (Not Detectd) 07/24/24 07/24/24 07/24/24 Range/Units 15:22 15:22 15:22 WBC (3.8-10.6) k/uL RBC (3.80-5.40) m/uL Hgb (11.4-16.0) gm/dL Hct (34.0-46.0) % MCV (80.0-100.0) fL MCH (25.0-35.0) pg MCHC (31.0-37.0) g/dL RDW (11.5-15.5) % Plt Count (150-450) k/uL MPV Neutrophils % % Lymphocytes % % Monocytes % % Eosinophils % % Basophils % % Neutrophils # (1.3-7.7) k/uL Lymphocytes # (1.0-4.8) k/uL Monocytes # (0-1.0) k/uL Eosinophils # (0-0.7) k/uL Basophils # (0-0.2) k/uL D-Dimer (<0.60) mg/L FEU Sodium 135 L (137-145) mmol/L Potassium 4.0 (3.5-5.1) mmol/L Chloride 102 (98-107) mmol/L Carbon Dioxide 15 L (22-30) mmol/L Anion Gap 18 mmol/L BUN 18 H (7-17) mg/dL Creatinine 2.59 H (0.52-1.04) mg/dL Est GFR (CKD-EPI)AfAm 27 (>60 ml/min/1.73 sqM) Est GFR (CKD-EPI)NonAf 23 (>60 ml/min/1.73 sqM) Glucose 187 H (74-99) mg/dL Calcium 9.1 (8.4-10.2) mg/dL Phosphorus (2.5-4.5) mg/dL Magnesium (1.6-2.3) mg/dL Total Bilirubin 2.0 H (0.2-1.3) mg/dL AST 236 H (14-36) U/L ALT 91 H (4-34) U/L Alkaline Phosphatase 173 H (38-126) U/L Troponin I <0.012 (0.000-0.034) ng/mL Total Protein 8.2 (6.3-8.2) g/dL Albumin 4.7 (3.5-5.0) g/dL HCG, Qual Not Detected Influenza Type A (PCR) (Not Detectd) Influenza Type B (PCR) (Not Detectd) RSV (PCR) (Not Detectd) SARS-CoV-2 (PCR) (Not Detectd) 07/24/24 Range/Units 15:22 WBC (3.8-10.6) k/uL RBC (3.80-5.40) m/uL Hgb (11.4-16.0) gm/dL Hct (34.0-46.0) % MCV (80.0-100.0) fL MCH (25.0-35.0) pg MCHC (31.0-37.0) g/dL RDW (11.5-15.5) % Plt Count (150-450) k/uL MPV Neutrophils % % Lymphocytes % % Monocytes % % Eosinophils % % Basophils % % Neutrophils # (1.3-7.7) k/uL Lymphocytes # (1.0-4.8) k/uL Monocytes # (0-1.0) k/uL Eosinophils # (0-0.7) k/uL Basophils # (0-0.2) k/uL D-Dimer (<0.60) mg/L FEU Sodium (137-145) mmol/L Potassium (3.5-5.1) mmol/L Chloride (98-107) mmol/L Carbon Dioxide (22-30) mmol/L Anion Gap mmol/L BUN (7-17) mg/dL Creatinine (0.52-1.04) mg/dL Est GFR (CKD-EPI)AfAm (>60 ml/min/1.73 sqM) Est GFR (CKD-EPI)NonAf (>60 ml/min/1.73 sqM) Glucose (74-99) mg/dL Calcium (8.4-10.2) mg/dL Phosphorus 3.6 (2.5-4.5) mg/dL Magnesium 2.0 (1.6-2.3) mg/dL Total Bilirubin (0.2-1.3) mg/dL AST (14-36) U/L ALT (4-34) U/L Alkaline Phosphatase (38-126) U/L Troponin I (0.000-0.034) ng/mL Total Protein (6.3-8.2) g/dL Albumin (3.5-5.0) g/dL HCG, Qual Influenza Type A (PCR) (Not Detectd) Influenza Type B (PCR) (Not Detectd) RSV (PCR) (Not Detectd) SARS-CoV-2 (PCR) (Not Detectd) - Radiology Data Radiology results: report reviewed, image reviewed Disposition Clinical Impression: Alcohol withdrawal, Renal failure Disposition: ADMITTED IP TO THIS HOSP
[2024-07-24 15:32] LABS: Basophils # (A) 0.1 k/uL (0-0.2); Basophils % (A) 1 %; Eosinophils # (A) 0.1 k/uL (0-0.7); Eosinophils % (A) 3 %; HCT 35.9 % (34.0-46.0); HGB 11.2 gm/dL (11.4-16.0); Lymphocytes # (A) 1.6 k/uL (1.0-4.8); Lymphocytes % (A) 36 %; MCH 29.8 pg (25.0-35.0); MCHC 31.1 g/dL (31.0-37.0); MCV 95.9 fL (80.0-100.0); Mean Platelet Volume 8.2; Monocytes # (A) 0.3 k/uL (0-1.0); Monocytes % (A) 6 %; Neutrophils # (A) 2.2 k/uL (1.3-7.7); Neutrophils % (A) 50 %; Platelet Count 215 k/uL (150-450); RBC 3.75 m/uL (3.80-5.40); RDW 14.9 % (11.5-15.5); WBC 4.3 k/uL (3.8-10.6)
[2024-07-24] MEDS: LORazepam 2 MG/ML INJ IV STA (15:40)
[2024-07-24] MEDS: ONDANSETRON 4 MG/2 ML VIAL IVP STA (15:40)
[2024-07-24] MEDS: SODIUM CHLORIDE 0.9% 1,000 ML IV ONE (15:41)
[2024-07-24 15:58] LABS: ALT 91 U/L (4-34); AST 236 U/L (14-36); African American GFR (CKD) 27 (>60 ml/min/1.73 sqM); Albumin 4.7 g/dL (3.5-5.0); Alkaline Phosphatase 173 U/L (38-126); Anion Gap 18 mmol/L; Blood Urea Nitrogen 18 mg/dL (7-17); Calcium 9.1 mg/dL (8.4-10.2); Carbon Dioxide 15 mmol/L (22-30); Chloride 102 mmol/L (98-107); Glucose 187 mg/dL (74-99); Non-African American GFR(CKD) 23 (>60 ml/min/1.73 sqM); Sodium 135 mmol/L (137-145); Total Protein 8.2 g/dL (6.3-8.2)
--- NOTE | 2024-07-24 16:28 | CT ---
EXAMINATION TYPE: CT chest angio for PE DATE OF EXAM: 07/24/2024 COMPARISON: e CLINICAL INDICATION:Femalee,34 yearss old with history ofDIB, elevated d-dimerr;PHHH,BRONWYN, elevated d- dimer.., SOB or PAIN TECHNIQUE: Ct angiogram of the chest performed withwith IV Contrastt, patient injected [id number] mll mL ofIsovue 3 700.MIP images are created and reviewedd. CT DLP:463.[address] CTDI: mGy Automated exposure control for dose reduction was used. FINDINGS: There are some optimal opacification of pulmonary arteries which limits evaluation. There is no defin ite large filling defect with small pulmonary emboli cannot be excluded with this technique. There is a 7 mm nodule in the right upper lobe. There is no airspace consolidation or abnormal inters titial density. There is no pleural effusion or pneumothorax. The great vessels and chest are normal as no mediastinal, hilar or axillary adenopathy. Limited scanning through the abdomen reveals marked liver steatosis. No focal osseous lesions are see n. IMPRESSION: 1. Suboptimal opacification of pulmonary arteries which significantly limits evaluation for pulmonary emboli. No large pulmonary emboli are seen but small emboli cannot be excluded with this technique. 2. 7 mm nodule right upper lobe. Follow-up CT thorax in 3 months is recommended to confirm stability. 3. No acute cardiopulmonary disease. Follow-up recommendations for incidental pulmonary nodules are per [employer] or [employer]. [facility], , 07/24/2024 4:26 PM
[2024-07-24] MEDS ORDERED: LORazepam 2 MG/ML INJ IV PRN ×3 (16:35)
[2024-07-24] MEDS ORDERED: HYDROcodone/APAP 5-325MG 1 EACH TAB PO PRN (16:43)
[2024-07-24] MEDS ORDERED: ACETAMINOPHEN TAB 325 MG TAB PO PRN (16:43)
[2024-07-24] MEDS ORDERED: NALOXONE 0.4 MG/ML 1 ML VIAL IV PRN (16:43)
[2024-07-24] MEDS ORDERED: MORPHINE SULFATE 4 MG/ML SYRINGE IV PRN (16:43)
[2024-07-24] MEDS: SODIUM CHLORIDE 0.9% 1,000 ML IV SCH (16:56)
[2024-07-24] MEDS: THIAMINE 100 MG/ML 2 ML VIAL IM STA (16:56)
[2024-07-24 17:01] LABS: Phosphorus 3.6 mg/dL (2.5-4.5)
[2024-07-24] MEDS: LORazepam 2 MG/ML INJ IV PRN (17:22)
--- NOTE | 2024-07-24 17:42 | US ---
EXAMINATION TYPE: US kidneys/renal and bladder DATE OF EXAM: 07/24/2024 COMPARISON: CT December 13, 2022 CLINICAL INDICATION: Female, 34 years old with history of Renal failure; renal failure. no symptoms TECHNIQUE: Grayscale imaging of the bilateral kidneys and urinary bladder: FINDINGS: EXAM MEASUREMENTS: Right Kidney: 11.4 x 5.2 x 5.7 cm Left Kidney: 11.2 x 6.1 x 6.3 cm Right Kidney: wnl Left Kidney: wnl Bladder: wnl Bilateral Jets seen: yes hepatomegaly seen measuring 20.1cm with increased echogenicity There is no evidence for hydronephrosis at this point in time. No nephrolithiasis is seen. No glenys s are identified. The urinary bladder is anechoic. When scanning the right kidney there is hepatome roberto and heterogeneous hyperechoic appearance of the liver. IMPRESSION: No hydronephrosis is seen bilaterally. [facility], , 07/24/2024 5:40 PM
[2024-07-24 20:22] LABS: Appearance,Urine Clear (Clear); Bilirubin,Urine Negative (Negative); Blood,Urine Moderate (Negative); Color,Urine Yellow; Glucose,Urine (UA) 3+ (Negative); Ketones,Urine Negative (Negative); Leukocyte Esterase,Urine Negative (Negative); Mucus,Urine Rare /hpf; Nitrite,Urine Negative (Negative); Protein,Urine 1+ (Negative); RBC,Urine 6 /hpf (0-5); Squamous Epithelial Cell,Urine 2 /hpf (0-4); Urobilinogen,Urine <2.0 mg/dL (<2.0); WBC,Urine 2 /hpf (0-5)
[2024-07-24] MEDS ORDERED: LORazepam 1 MG/0.5 ML VIAL IV PRN ×3 (23:08→23:09)
[2024-07-24] MEDS: LORazepam 1 MG/0.5 ML VIAL IV PRN (23:30)
[2024-07-25 06:54] LABS: Basophils % (A) 1 %; Eosinophils # (A) 0.1 k/uL (0-0.7); Eosinophils % (A) 3 %; HCT 29.4 % (34.0-46.0); Hypochromasia Slight; Lymphocytes # (A) 1.2 k/uL (1.0-4.8); Lymphocytes % (A) 32 %; MCH 31.4 pg (25.0-35.0); Mean Platelet Volume 7.7; Monocytes # (A) 0.2 k/uL (0-1.0); Monocytes % (A) 6 %; Neutrophils # (A) 2.1 k/uL (1.3-7.7); Neutrophils % (A) 57 %; Platelet Count 189 k/uL (150-450); RBC 3.09 m/uL (3.80-5.40); RDW 14.7 % (11.5-15.5); WBC 3.6 k/uL (3.8-10.6)
[2024-07-25 06:58] LABS: HGB 9.7 gm/dL (11.4-16.0)
[2024-07-25 07:17] LABS: ALT 74 U/L (4-34); AST 156 U/L (14-36); African American GFR (CKD) 40 (>60 ml/min/1.73 sqM); Albumin 3.9 g/dL (3.5-5.0); Albumin/Globulin Ratio 1.3; Alkaline Phosphatase 132 U/L (38-126); Anion Gap 8 mmol/L; Blood Urea Nitrogen 20 mg/dL (7-17); Calcium 8.5 mg/dL (8.4-10.2); Carbon Dioxide 23 mmol/L (22-30); Chloride 103 mmol/L (98-107); Globulin 3.1 g/dL; Glucose 120 mg/dL (74-99); Non-African American GFR(CKD) 35 (>60 ml/min/1.73 sqM); Potassium 4.2 mmol/L (3.5-5.1); Sodium 134 mmol/L (137-145); Total Bilirubin 2.7 mg/dL (0.2-1.3)
[2024-07-25] MEDS: ONDANSETRON 4 MG/2 ML VIAL IVP PRN (08:38)
[2024-07-25] MEDS: PANTOPRAZOLE 40 MG/10 ML VIAL IV SCH (08:38)
[2024-07-25] MEDS: THIAMINE 100 MG TAB PO SCH (08:39)
[2024-07-25] MEDS: FOLIC ACID 1 MG TAB PO SCH (08:39)
[2024-07-25] MEDS: MULTIVITAMINS, THERA 1 EACH TAB PO SCH (08:39)
[2024-07-25 10:07] LABS: Appearance,Urine Cloudy (Clear); Bacteria,Urine Rare /hpf; Bilirubin,Urine 1+ (Negative); Blood,Urine Small (Negative); Color,Urine Yellow; Glucose,Urine (UA) 3+ (Negative); Ketones,Urine Negative (Negative); Leukocyte Esterase,Urine Trace (Negative); Mucus,Urine Rare /hpf; Nitrite,Urine Negative (Negative); Protein,Urine 1+ (Negative); RBC,Urine 4 /hpf (0-5); Specific Gravity,Urine 1.035 (1.001-1.035); Squamous Epithelial Cell,Urine 3 /hpf (0-4); WBC,Urine 7 /hpf (0-5)
--- NOTE | 2024-07-25 10:59 | P.NPCON ---
History of Present Illness - Reason for Consult acute renal failure - History of Present Illness Reason for consultation: Acute kidney injury History of present illness: Patient is a 34-year-old female seen in renal consultation for acute kidney injury. Patient's creatinine on admission was 2.59 and is improved to 1.85 today. It is noted the patient developed acute kidney injury in January 2024 and creatinine improved from 2.08-1.5. Prior to that her creatinine was 0.68 dated May 08, 2023. Patient came to the hospital due to worsening shortness of breath and cough going on for about 5 days. Patient states she is also noticed blood when she coughs up about once to twice daily. She denies use of nonsteroidals. Denies history of diabetes or coronary artery disease. She did have 2 episodes of vomiting. Denies diarrhea. Hemodynamically stable. She did undergo CT angiogram July 24, 2024 which could not exclude small emboli. Kidney ultrasound showed no evidence of hydronephrosis. She denies any gross hematuria or dysuria. No chest pain. She was on losartan at home which is curr ently held. She denies any sick contacts. She does admit to drinking 2 pints of alcohol daily. Vital signs are stable. General: No acute distress. HEENT: Head exam is unremarkable. LUNGS: No audible rhonchi or wheezes. HEART: Rate and Rhythm are regular. ABDOMEN: Nontender. EXTREMITITES: No edema. Past Medical History Past Medical History: GERD/Reflux, Hypertension, Liver Disease Additional Past Medical History / Comment(s): urgent care told pt she had an ulcer, alcohol hepatitis History of Any Multi-Drug Resistant Organisms: None Reported Past Surgical History: No Surgical Hx Reported Additional Past Surgical History / Comment(s): D&C Past Anesthesia/Blood Transfusion Reactions: No Reported Reaction, Unable to Obtain Past Psychological History: No Psychological Hx Reported Smoking Status: Current some day smoker Past Alcohol Use History: Abuse, Daily, Heavy Past Drug Use History: None Reported - Past Family History Mother Additional Family Medical History / Comment(s): spina bifida, depression, anxiety Medications and Allergies Home Medications Medication Instructions Recorded Confirmed Type Folic Acid 1 mg PO DAILY 05/08/23 07/24/24 History Pantoprazole [Protonix] 40 mg PO BID 05/08/23 07/24/24 History Thiamine [Vitamin B-1] 100 mg PO DAILY #30 tablet 05/08/23 07/24/24 Rx Cyanocobalamin (Vitamin B-12) 1,000 mcg PO DAILY 07/24/24 07/24/24 History [Vitamin B-12] Losartan [Cozaar] 50 mg PO DAILY 07/24/24 07/24/24 History Allergies Allergy/AdvReac Type Severity Reaction Status Date / Time ethinyl estradiol Allergy Unknown Verified 07/24/24 18:14 [From Loestrin 24 Fe] ferrous fumarate Allergy Unknown Verified 07/24/24 18:14 [From Loestrin 24 Fe] norethindrone acetate Allergy Unknown Verified 07/24/24 18:14 [From Loestrin 24 Fe] Physical Exam Vitals: Vital Signs Temp Pulse Pulse Resp BP BP Pulse Ox 07/25/24 08:00 89 07/25/24 07:00 98.3 F 86 17 130/78 97 07/25/24 03:38 98.8 F 84 16 121/64 97 07/24/24 23:17 97.9 F 100 16 152/76 97 07/24/24 22:59 97.6 F 94 18 114/55 96 07/24/24 21:28 101 H 18 128/78 97 07/24/24 19:00 109 H 18 107/70 95 07/24/24 17:57 92 18 111/57 95 07/24/24 16:46 99.1 F 93 16 131/78 99 07/24/24 14:17 97.8 F 104 H 18 108/66 98 Intake and Output 07/24/24 07/25/24 07/25/24 22:59 06:59 14:59 Other: Voiding Method Toilet # Voids 2 Weight 90.718 kg Results - Lab Results Most recent lab results Calcium 8.5 mg/dL (8.4-10.2) 07/25/24 06:29 Phosphorus 3.6 mg/dL (2.5-4.5) 07/24/24 15:22 Magnesium 2.0 mg/dL (1.6-2.3) 07/24/24 15:22 07/25/24 06:29 07/25/24 06:29 Assessment and Plan Plan: Assessment: 1. Acute kidney injury secondary to ATN secondary to hypovolemia and further worsen with the use of losartan. Also received IV contrast on July 24, 2024. Creatinine 2.5 on admission and is 1.85 today. Creatinine in January 2024 improved from 2.08-1.5. In May 2023 creatinine one 0.68. UA shows 1+ protein with 4 RBCs. No hydronephrosis noted on imaging. 2. Alcohol abuse with concern for withdrawals. 3. Acute bronchitis with hemoptysis. Tested negative for influenza, RSV and COVID. 4. Benign hypertension. Controlled. 5. Metabolic acidosis secondary to acute kidney injury. Improved. Plan: Maintain IV fluids. Decrease rate to 100 cc an hour. Check serologies due to hemoptysis. Consult pulmonology. Continue to hold losartan. Avoid nephrotoxins. Continue to monitor renal function and urine output. Thank you for the consultation. I will continue to follow the patient with you during her hospital stay.
[2024-07-25] MEDS ORDERED: BENZONATATE 100 MG CAP PO PRN (14:47)
--- NOTE | 2024-07-25 16:12 | P.CNPUL ---
History of Present Illness Consult date: 07/25/24 Requesting physician: Clayton Velez Reason for consult: other (Hemoptysis) Chief complaint: Cough, congestion, weakness History of present illness: This is a 34-year-old female patient with a known history of gastroesophageal reflux disease, hypertension, alcoholic hepatitis, chronic and ongoing tobacco dependence, chronic daily heavy alcohol use who presented here to the emergency room yesterday with a 1 week history of coughing and congestion. She did notice some blood specks in her sputum and she had become weak with no energy and presented to the ER for the same. She admits to drinking 2 pints daily and did have a pint the night before she came here. She was concerned about going through withdrawals. X-ray revealed no acute process. CT angiogram ruled out pulmonary embolism. There was an incidental finding of a 7 mm right middle lobe subpleural nodule. 0.6. Hemoglobin 9.7. Platelets 189. D-dimer 1.02. Sodium 134. Potassium 4.2. Bicarb 23. BUN 20. Creatinine initially 2.59, currently 1.85. Glucose 120. AST 156. ALT 74. Alk phos 132. hCG negative. She is seen today in consultation on the regular medical floor. She is currently sitting up in bed. Awake and alert in no acute distress. Maintaining good O2 saturations in the 90s on room air. She states her sputum has just specks of blood in it. She had been coughing and congested. She was having some dizziness and lightheadedness. She states she is feeling a bit better today compared to yesterday. She has been afebrile. Hemodynamically stable. Review of Systems REVIEW OF SYSTEMS: CONSTITUTIONAL: Positive for generalized weakness, dizziness. Denies any recent significant weight loss or weight gain. EYES: Denies change in vision. EARS, NOSE, MOUTH, THROAT: Denies headaches, denies sore throat. CARDIOVASCULAR: Denies chest pain, palpitations or syncopal episodes. RESPIRATORY: Positive for shortness of breath, cough, congestion with specks of blood in sputum. GASTROINTESTINAL: Denies change in appetite, denies abdominal pain GENITOURINARY: Denies hematuria, denies infections. MUSKULOSKELETAL: Denies pain, denies swelling. INTEGUMENTARY: Denies rash, denies eczema. NEUROLOGICAL: Denies recent memory loss, no recent seizure activity. PSYCHIATRIC: Denies anxiety, denies depression. HEMATOLOGIC/LYMPHATIC: Denies anemia, denies enlarged lymph nodes. Past Medical History Past Medical History: GERD/Reflux, Hypertension, Liver Disease Additional Past Medical History / Comment(s): urgent care told pt she had an ulcer, alcohol hepatitis History of Any Multi-Drug Resistant Organisms: None Reported Past Surgical History: No Surgical Hx Reported Additional Past Surgical History / Comment(s): D&C Past Anesthesia/Blood Transfusion Reactions: No Reported Reaction, Unable to Obtain Past Psychological History: No Psychological Hx Reported Smoking Status: Current some day smoker Past Alcohol Use History: Abuse, Daily, Heavy Past Drug Use History: None Reported - Past Family History Mother Additional Family Medical History / Comment(s): spina bifida, depression, anxiety Medications and Allergies Home Medications Medication Instructions Recorded Confirmed Type Folic Acid 1 mg PO DAILY 05/08/23 07/24/24 History Pantoprazole [Protonix] 40 mg PO BID 05/08/23 07/24/24 History Thiamine [Vitamin B-1] 100 mg PO DAILY #30 tablet 05/08/23 07/24/24 Rx Cyanocobalamin (Vitamin B-12) 1,000 mcg PO DAILY 07/24/24 07/24/24 History [Vitamin B-12] Losartan [Cozaar] 50 mg PO DAILY 07/24/24 07/24/24 History Allergies Allergy/AdvReac Type Severity Reaction Status Date / Time ethinyl estradiol Allergy Unknown Verified 07/24/24 18:14 [From Loestrin 24 Fe] ferrous fumarate Allergy Unknown Verified 07/24/24 18:14 [From Loestrin 24 Fe] norethindrone acetate Allergy Unknown Verified 07/24/24 18:14 [From Loestrin 24 Fe] Physical Exam Vitals: Vital Signs Temp Pulse Pulse Resp BP BP Pulse Ox 07/25/24 14:30 108 H 20 07/25/24 14:23 98.2 F 108 H 20 129/84 98 07/25/24 08:00 98.2 F 89 16 132/80 98 07/25/24 07:00 98.3 F 86 17 130/78 97 07/25/24 03:38 98.8 F 84 16 121/64 97 07/24/24 23:17 97.9 F 100 16 152/76 97 07/24/24 22:59 97.6 F 94 18 114/55 96 07/24/24 21:28 101 H 18 128/78 97 07/24/24 19:00 109 H 18 107/70 95 07/24/24 17:57 92 18 111/57 95 07/24/24 16:46 99.1 F 93 16 131/78 99 Intake and Output 07/25/24 07/25/24 07/25/24 06:59 14:59 22:59 Other: Voiding Method Toilet Toilet # Voids 2 3 GENERAL EXAM: Alert, pleasant 34-year-old female, on room air, comfortable in no apparent distress. HEAD: Normocephalic. EYES: Normal reaction of pupils, equal size. NOSE: Clear with pink turbinates. THROAT: No erythema or exudates. NECK: No masses, no JVD. CHEST: No chest wall deformity. LUNGS: Equal air entry with no crackles, wheeze, rhonchi or dullness. CVS: S1 and S2 normal with no audible murmur, regular rhythm. ABDOMEN: No hepatosplenomegaly, normal bowel sounds, no guarding or rigidity. SPINE: No scoliosis or deformity SKIN: No rashes CENTRAL NERVOUS SYSTEM: No focal deficits, tone is normal in all 4 extremities. EXTREMITIES: There is no peripheral edema. No clubbing, no cyanosis. Peripheral pulses are intact. Results - Laboratory Findings CBC and BMP: 07/25/24 06:29 07/25/24 06:29 PT/INR, D-dimer D-Dimer 1.02 mg/L FEU (<0.60) H 07/24/24 15:22 Abnormal lab findings: Abnormal Labs 07/24/24 07/24/24 07/24/24 15:22 15:22 15:22 WBC RBC 3.75 L Hgb 11.2 L Hct D-Dimer 1.02 H Sodium 135 L Carbon Dioxide 15 L BUN 18 H Creatinine 2.59 H Glucose 187 H Total Bilirubin 2.0 H AST 236 H ALT 91 H Alkaline Phosphatase 173 H Urine Appearance Ur Specific [place] Urine Protein Urine Glucose (UA) Urine Blood Urine Bilirubin Ur Leukocyte Esterase Urine RBC Urine WBC Urine Bacteria Urine Mucus 07/24/24 07/25/24 07/25/24 20:12 06:29 06:29 WBC 3.6 L RBC 3.09 L Hgb 9.7 L D Hct 29.4 L D-Dimer Sodium 134 L Carbon Dioxide BUN 20 H Creatinine 1.85 H Glucose 120 H Total Bilirubin 2.7 H AST 156 H ALT 74 H Alkaline Phosphatase 132 H Urine Appearance Ur Specific [place] 1.050 H Urine Protein 1+ H Urine Glucose (UA) 3+ H Urine Blood Moderate H Urine Bilirubin Ur Leukocyte Esterase Urine RBC 6 H Urine WBC Urine Bacteria Urine Mucus Rare H 07/25/24 09:00 WBC RBC Hgb Hct D-Dimer Sodium Carbon Dioxide BUN Creatinine Glucose Total Bilirubin AST ALT Alkaline Phosphatase Urine Appearance Cloudy H Ur Specific [place] Urine Protein 1+ H Urine Glucose (UA) 3+ H Urine Blood Small H Urine Bilirubin 1+ H Ur Leukocyte Esterase Trace H Urine RBC Urine WBC 7 H Urine Bacteria Rare H Urine Mucus Rare H - Diagnostic Findings Chest x-ray: image reviewed CT scan - chest: image reviewed Assessment and Plan Assessment: Acute tracheobronchitis with specks of blood in her sputum. Pulmonary embolism ruled out Right middle lobe subpleural nodule measuring 7 mm Acute kidney injury secondary to acute tubular necrosis from hypovolemia and ARB, also received IV contrast for her CTA. Ultrasound revealed no evidence of hydronephrosis. No nephrolithiasis. No masses. Hepatomegaly with heterogenous hyperechoic appearance of the liver History of heavy daily alcohol use, including 2 pints per day History of alcoholic hepatitis 3 of chronic tobacco dependence Hypertension Gastroesophageal reflux disease Plan: The patient was seen and evaluated Imaging, labs and medications reviewed Currently stable and on room air Obtain a sputum sample Add Lindsey Hewitt for her cough Will need outpatient follow-up regarding pulmonary nodule We will continue to follow and make further recommendations based on her clinical status I have personally seen and examined the patient, performed the documentation and the assessment and plan as written. Number of minutes spent on the visit: 20 Dictation was produced using [email or web address] software. Please excuse any grammatical, word or spelling errors. Time with Patient: Greater than 30
[2024-07-25 19:06] LABS: Protein, Total 6.7 g/dL (6.2-8.2)
--- NOTE | 2024-07-25 22:30 | HP ---
HISTORY AND PHYSICAL CHIEF COMPLAINT: Hemoptysis, hematemesis, acute alcohol intoxication and DTs with renal failure. HISTORY OF PRESENT ILLNESS: This is the first known admission for this 34-year-old female. She came to the emergency room complaining initially of coughing up blood and then vomiting and bringing up blood as well. She is now alcoholic and she was intoxicated and going into DTs. In the emergency room, her creatinine was 2.6 with a GFR of only 23. She does not have a history of kidney disease. REVIEW OF SYSTEMS: She has had no fever, chills, melena, hematochezia, etc. Past medical history, family history, and personal and social histories reveal that she is allergic to estrogen. MEDICATIONS: She is on, 1. Losartan 100 mg once a day. 2. Pantoprazole 40 mg twice a day. 3. Vitamin B1 100 mg twice a day. 4. Potassium 20 mEq once a day. 5. Folic acid 1 mg once a day. 6. B12. She does have a past history of hepatitis as well as a current diagnosis of alcoholism. She used to smoke. PHYSICAL EXAMINATION: VITAL SIGNS: Blood pressure 134/80 with a pulse of 93 and regular, respirations of 36, and she is afebrile. GENERAL: She appeared to be slightly pale. She was not jaundiced. SKIN: Dry. HEAD, EARS, EYES, NOSE, MOUTH, AND THROAT: Normal. CHEST: Clear. CARDIAC: Normal. ABDOMEN: Soft, nontender. EXTREMITIES: Normal. IMPRESSION: 1. Hemoptysis. 2. Hematemesis. 3. Acute alcohol intoxication. 4. Chronic alcoholism. 5. Delirium tremens. 6. Acute kidney injury. PLAN: 1. Bed rest. 2. IV fluids. 3. Antiemetics. 4. Workup hemoptysis, hematemesis, and acute kidney injury. MMODL / IJN: [id number] /
--- NOTE | 2024-07-25 23:09 | PN ---
PROGRESS NOTE DATE OF SERVICE: 07/25/2024 CHIEF COMPLAINT: Hemoptysis, hematemesis, alcoholism, and anemia. HISTORY OF PRESENT ILLNESS: This lady states she is doing a little bit better. She states she is not coughing up blood anymore and she is not nauseated. Laboratory lawrence, her AST has gone from 236 down to 136, and her ALT has gone from 91 down to 74. Hemoglobin is 9.7. GFR has improved from 23 to 35. PHYSICAL EXAMINATION: GENERAL: She is awake and alert. CHEST: Clear. CARDIAC: Normal. ABDOMEN: Soft, nontender. IMPRESSION: 1. Hemoptysis. 2. Hematemesis. 3. Acute alcohol intoxication. 4. Alcoholic hepatitis. 5. Anemia. 6. Acute kidney injury. PLAN: Increase activity and continue to monitor her labs. MMODL / IJN: [id number] /
[2024-07-25 23:25] LABS: Hepatitis A Antibody IgM Nonreactive (Nonreactive); Hepatitis B Core IgM Nonreactive (Nonreactive); Hepatitis B Surface Antigen Nonreactive (Nonreactive); Hepatitis C IgG Antibody Nonreactive (Nonreactive)
[2024-07-25 23:37] LABS: Anti-DNA, DS unit <1.0 IU/mL; DNA Double-Stranded Negative (Negative)
[2024-07-26 08:27] LABS: BUN/Creat Ratio 7.53 Ratio (12.00-20.00); Blood Urea Nitrogen 11.3 mg/dL (9.0-27.0); Glucose 178 mg/dL (70-110); Magnesium 1.7 mg/dL (1.5-2.4)
[2024-07-26 08:28] LABS: Calcium 8.7 mg/dL (8.7-10.3); Carbon Dioxide 20.6 mmol/L (21.6-31.8); Chloride 101 mmol/L (96-109); Potassium 4.2 mmol/L (3.5-5.5); Sodium 135 mmol/L (135-145)
--- NOTE | 2024-07-26 10:39 | P.PN ---
Subjective Patient is seen in follow-up for acute kidney injury. Renal function improving. No further hemoptysis. Cough improved. Has been voiding. Denies chest pain or shortness of breath. Vital signs are stable. General: T no acute distress. HEENT: Head exam is unremarkable. LUNGS: No audible rhonchi or wheezes. HEART: Rate and Rhythm are regular. ABDOMEN: Nontender. EXTREMITITES: No edema. Objective - Vital Signs Vital signs: Vital Signs Temp 98.7 F 07/26/24 07:00 Pulse 76 07/26/24 08:00 Resp 16 07/26/24 08:00 BP 117/77 07/26/24 07:00 Pulse Ox 98 07/26/24 07:00 FiO2 Intake & Output 07/25/24 07/26/24 07/26/24 18:59 06:59 18:59 Other: Voiding Method Toilet Toilet # Voids 3 2 - Labs CBC & Chem 7: 07/25/24 06:29 07/26/24 05:28 Labs: Abnormal Lab Results - Last 24 Hours (Table) 07/26/24 Range/Units 05:28 Carbon Dioxide 20.6 L (21.6-31.8) mmol/L Anion Gap 13.40 H (4.00-12.00) mmol/L Est GFR (CKD-EPI) 46 L (>=60) BUN/Creatinine Ratio 7.53 L (12.00-20.00) Ratio Glucose 178 H (70-110) mg/dL Assessment and Plan Plan: Assessment: 1. Acute kidney injury secondary to ATN secondary to hypovolemia and further worsened with the use of losartan. Also received IV contrast on July 24, 2024. Creatinine 2.5 on admission and is 1.5 today. Creatinine in January 2024 improved from 2.08-1.5. In May 2023 creatinine one 0.68. UA shows 1+ protein with 4 RBCs. No hydronephrosis noted on imaging. 2. Alcohol abuse with concern for withdrawals. 3. Acute bronchitis with hemoptysis. Tested negative for influenza, RSV and COVID. Pulmonology following. 4. Benign hypertension. Controlled. 5. Metabolic acidosis secondary to acute kidney injury and IV fluids. Plan: Hep-Lock IV fluids. Follow-up serologies. Negative so far. Continue to hold losartan. Avoid nephrotoxins. Continue to monitor renal function and urine output. Follow-up outpatient 1 week postdischarge.
--- NOTE | 2024-07-26 11:24 | P.PN ---
Subjective Progress Note Date: 07/26/24 This is a 34-year-old female patient with a known history of gastroesophageal reflux disease, hypertension, alcoholic hepatitis, chronic and ongoing tobacco dependence, chronic daily heavy alcohol use who presented here to the emergency room yesterday with a 1 week history of coughing and congestion. She did notice some blood specks in her sputum and she had become weak with no energy and presented to the ER for the same. She admits to drinking 2 pints daily and did have a pint the night before she came here. She was concerned about going through withdrawals. X-ray revealed no acute process. CT angiogram ruled out pulmonary embolism. There was an incidental finding of a 7 mm right middle lobe subpleural nodule. 0.6. Hemoglobin 9.7. Platelets 189. D-dimer 1.02. Sodium 134. Potassium 4.2. Bicarb 23. BUN 20. Creatinine initially 2.59, currently 1.85. Glucose 120. AST 156. ALT 74. Alk phos 132. hCG negative. She is seen today in consultation on the regular medical floor. She is currently sitting up in bed. Awake and alert in no acute distress. Maintaining good O2 saturations in the 90s on room air. She states her sputum has just specks of blood in it. She had been coughing and congested. She was having some dizziness and lightheadedness. She states she is feeling a bit better today compared to yesterday. She has been afebrile. Hemodynamically stable. The patient is seen today July 26, 2024 in follow-up on the regular medical floor. She is currently sitting up in bed. Awake and alert in no acute distress. She is maintaining good O2 saturations in the 90s on room air. No blood tinged sputum. No cough or congestion. No IV fluids. Lung sounds are clear. Sodium 135. Potassium 4.2. Bicarb 21. BUN 11. Creatinine 1.5. She remains on Tessalon Perles for her cough. Remains on Protonix. Remains on the CIWA protocol. Objective - Vital Signs Vital signs: Vital Signs Temp 98.7 F 07/26/24 07:00 Pulse 76 07/26/24 08:00 Resp 16 07/26/24 08:00 BP 117/77 07/26/24 07:00 Pulse Ox 98 07/26/24 07:00 FiO2 Intake & Output 07/25/24 07/26/24 07/26/24 18:59 06:59 18:59 Other: Voiding Method Toilet Toilet # Voids 3 2 - Exam GENERAL EXAM: Alert, 34-year-old female, on room air, sitting up in bed, c omfortable in no apparent distress. HEAD: Normocephalic. EYES: Normal reaction of pupils, equal size. NOSE: Clear with pink turbinates. THROAT: No erythema or exudates. NECK: No masses, no JVD. CHEST: No chest wall deformity. LUNGS: Equal air entry with no crackles, wheeze, rhonchi or dullness. CVS: S1 and S2 normal with no audible murmur, regular rhythm. ABDOMEN: No hepatosplenomegaly, normal bowel sounds, no guarding or rigidity. SPINE: No scoliosis or deformity SKIN: No rashes CENTRAL NERVOUS SYSTEM: No focal deficits, tone is normal in all 4 extremities. EXTREMITIES: There is no peripheral edema. No clubbing, no cyanosis. Peripheral pulses are intact. - Labs CBC & Chem 7: 07/25/24 06:29 07/26/24 05:28 Labs: Abnormal Lab Results - Last 24 Hours (Table) 07/26/24 Range/Units 05:28 Carbon Dioxide 20.6 L (21.6-31.8) mmol/L Anion Gap 13.40 H (4.00-12.00) mmol/L Est GFR (CKD-EPI) 46 L (>=60) BUN/Creatinine Ratio 7.53 L (12.00-20.00) Ratio Glucose 178 H (70-110) mg/dL Assessment and Plan Assessment: Acute tracheobronchitis with specks of blood in her sputum. Pulmonary embolism ruled out Right middle lobe subpleural nodule measuring 7 mm Acute kidney injury secondary to acute tubular necrosis from hypovolemia and ARB, also received IV contrast for her CTA. Ultrasound revealed no evidence of hydronephrosis. No nephrolithiasis. No masses. Hepatomegaly with heterogenous hyperechoic appearance of the liver History of heavy daily alcohol use, including 2 pints per day History of alcoholic hepatitis 3 of chronic tobacco dependence Hypertension Gastroesophageal reflux disease Plan: The patient was seen and evaluated Labs and medications reviewed Currently stable and on room air Continue Tessalon Perles as needed Cleared for discharge once cleared by nephrology Will need outpatient follow-up regarding pulmonary nodule We will continue to follow and make further recommendations based on her clinical status I have personally seen and examined the patient, performed the documentation and the assessment and plan as written. Number of minutes spent on the visit: 10 Dictation was produced using [employer] dictation software. Please excuse any grammatical, word or spelling errors.
[2024-07-26 13:54] LABS: C-ANCA <1:20 Titer (<1:20)
[2024-07-26 14:27] LABS: Anti-Glomerular Basement Memb <1.5 U/mL (<7.0)
[2024-07-26 19:54] VITALS: RESP 16
[2024-07-27 07:23] VITALS: BP 122/75; PULSE 81; TEMP 98.1
--- NOTE | 2024-07-27 10:47 | P.PN ---
Subjective Progress Note Date: 07/27/24 This is a 34-year-old female patient with a known history of gastroesophageal reflux disease, hypertension, alcoholic hepatitis, chronic and ongoing tobacco dependence, chronic daily heavy alcohol use who presented here to the emergency room yesterday with a 1 week history of coughing and congestion. She did notice some blood specks in her sputum and she had become weak with no energy and presented to the ER for the same. She admits to drinking 2 pints daily and did have a pint the night before she came here. She was concerned about going through withdrawals. X-ray revealed no acute process. CT angiogram ruled out pulmonary embolism. There was an incidental finding of a 7 mm right middle lobe subpleural nodule. 0.6. Hemoglobin 9.7. Platelets 189. D-dimer 1.02. Sodium 134. Potassium 4.2. Bicarb 23. BUN 20. Creatinine initially 2.59, currently 1.85. Glucose 120. AST 156. ALT 74. Alk phos 132. hCG negative. She is seen today in consultation on the regular medical floor. She is currently sitting up in bed. Awake and alert in no acute distress. Maintaining good O2 saturations in the 90s on room air. She states her sputum has just specks of blood in it. She had been coughing and congested. She was having some dizziness and lightheadedness. She states she is feeling a bit better today compared to yesterday. She has been afebrile. Hemodynamically stable. The patient is seen today July 26, 2024 in follow-up on the regular medical floor. She is currently sitting up in bed. Awake and alert in no acute distress. She is maintaining good O2 saturations in the 90s on room air. No blood tinged sputum. No cough or congestion. No IV fluids. Lung sounds are clear. Sodium 135. Potassium 4.2. Bicarb 21. BUN 11. Creatinine 1.5. She remains on Tessalon Perles for her cough. Remains on Protonix. Remains on the CIWA protocol. The patient is seen today July 27, 2024 in follow-up on the regular medical floor. She is sitting up in bed. Awake and alert in no acute distress. Maintaining good O2 saturations up to 100% on room air. She is afebrile. Hemodynamically stable. Labs today. She remains in the CIWA protocol. Tessalon Perles for her cough. Objective - Vital Signs Vital signs: Vital Signs Temp 98.1 F 07/27/24 07:00 Pulse 81 07/27/24 07:00 Resp 16 07/27/24 07:00 BP 122/75 07/27/24 07:00 Pulse Ox 99 07/27/24 07:00 FiO2 Intake & Output 07/26/24 07/27/24 07/27/24 18:59 06:59 18:59 Intake Total 540 118 Balance 540 118 Intake: Oral 540 118 Other: Voiding Method Toilet Toilet # Voids 3 2 - Exam GENERAL EXAM: Alert, pleasant 34-year-old female, on room air, resting in bed, in no apparent distress. HEAD: Normocephalic. EYES: Normal reaction of pupils, equal size. NOSE: Clear with pink turbinates. THROAT: No erythema or exudates. NECK: No masses, no JVD. CHEST: No chest wall deformity. LUNGS: Equal air entry with no crackles, wheeze, rhonchi or dullness. CVS: S1 and S2 normal with no audible murmur, regular rhythm. ABDOMEN: No hepatosplenomegaly, normal bowel sounds, no guarding or rigidity. SPINE: No scoliosis or deformity SKIN: No rashes CENTRAL NERVOUS SYSTEM: No focal deficits, tone is normal in all 4 extremities. EXTREMITIES: There is no peripheral edema. No clubbing, no cyanosis. Peripheral pulses are intact. - Labs CBC & Chem 7: 07/25/24 06:29 07/26/24 05:28 Assessment and Plan Assessment: Acute tracheobronchitis with specks of blood in her sputum. Pulmonary embolism ruled out. Recovered Right middle lobe subpleural nodule measuring 7 mm Acute kidney injury secondary to acute tubular necrosis from hypovolemia and ARB, also received IV contrast for her CTA. Ultrasound revealed no evidence of hydronephrosis. No nephrolithiasis. No masses. Hepatomegaly with heterogenous hyperechoic appearance of the liver History of heavy daily alcohol use, including 2 pints per day History of alcoholic hepatitis 3 of chronic tobacco dependence Hypertension Gastroesophageal reflux disease Plan: The patient was seen and evaluated Medications reviewed Currently stable and on room air Cleared for discharge Outpatient follow-up regarding pulmonary nodule Follow-up in our office in 1 week This patient was seen independently by the pulmonary nurse practitioner addressing pulmonary issues I have personally seen and examined the patient, performed the documentation and the assessment and plan as written. Number of minutes spent on the visit: 24 Dictation was produced using [employer] dictation software. Please excuse any grammatical, word or spelling errors.
--- NOTE | 2024-07-27 13:42 | P.PN ---
Subjective Progress Note Date: 07/27/24 Patient is seen in follow-up for acute kidney injury. Renal function improving. No further hemoptysis. Cough improved. Has been voiding. Denies chest pain or shortness of breath. Vital signs are stable. General: T no acute distress. HEENT: Head exam is unremarkable. LUNGS: No audible rhonchi or wheezes. HEART: Rate and Rhythm are regular. ABDOMEN: Nontender. EXTREMITITES: No edema. Objective - Vital Signs Vital signs: Vital Signs Temp 98.1 F 07/27/24 07:00 Pulse 81 07/27/24 07:00 Resp 16 07/27/24 07:00 BP 122/75 07/27/24 07:00 Pulse Ox 99 07/27/24 07:00 FiO2 Intake & Output 07/26/24 07/27/24 07/27/24 18:59 06:59 18:59 Intake Total 540 118 Balance 540 118 Intake: Oral 540 118 Other: Voiding Method Toilet Toilet # Voids 3 2 - Labs CBC & Chem 7: 07/25/24 06:29 07/26/24 05:28 Assessment and Plan Assessment: Assessment: 1. Acute kidney injury secondary to ATN secondary to hypovolemia and further worsened with the use of losartan. Also received IV contrast on July 24, 2024. Creatinine 2.5 on admission and is 1.5 today. Creatinine in January 2024 improved from 2.08-1.5. In May 2023 creatinine one 0.68. UA shows 1+ protein with 4 RBCs. No hydronephrosis noted on imaging. 2. Alcohol abuse with concern for withdrawals. 3. Acute bronchitis with hemoptysis. Tested negative for influenza, RSV and COVID. Pulmonology following. 4. Benign hypertension. Controlled. 5. Metabolic acidosis secondary to acute kidney injury and IV fluids. Plan: Hep-Lock IV fluids. Follow-up serologies. Negative so far. Continue to hold losartan. Avoid nephrotoxins. Continue to monitor renal function and urine output. Follow-up outpatient 1 week postdischarge.
[2024-07-27 14:45] LABS: ALT 57 U/L (4-34); AST 98 U/L (14-36); African American GFR (CKD) 57 (>60 ml/min/1.73 sqM); Albumin 4.3 g/dL (3.5-5.0); Albumin/Globulin Ratio 1.3; Alkaline Phosphatase 144 U/L (38-126); Anion Gap 13 mmol/L; Blood Urea Nitrogen 8 mg/dL (7-17); Calcium 9.2 mg/dL (8.4-10.2); Carbon Dioxide 22 mmol/L (22-30); Chloride 102 mmol/L (98-107); Globulin 3.2 g/dL; Glucose 146 mg/dL (74-99); Non-African American GFR(CKD) 49 (>60 ml/min/1.73 sqM); Potassium 4.2 mmol/L (3.5-5.1); Sodium 137 mmol/L (137-145); Total Bilirubin 2.5 mg/dL (0.2-1.3); Total Protein 7.5 g/dL (6.3-8.2)
[2024-07-27] MEDS ORDERED: PANTOPRAZOLE 40 MG TABLET PO SCH (17:30)
[2024-07-28] MEDS ORDERED: FOLIC ACID 1 MG TAB PO SCH (09:00)
[2024-07-28] MEDS ORDERED: THIAMINE 100 MG TAB PO SCH (09:00)
--- NOTE | 2024-07-29 14:21 | PN ---
PROGRESS NOTE DATE OF SERVICE: 07/26/2024 CHIEF COMPLAINT: 1. History of hematemesis and hemoptysis. 2. Acute alcohol intoxication. 3. Acute kidney injury. HISTORY OF PRESENT ILLNESS: This lady states that she feels a little bit better. She has not gone into DTs. She has had no further nausea or vomiting and she has had no further hemoptysis. PHYSICAL EXAMINATION: CHEST: Clear. CARDIAC: Normal. ABDOMEN: Soft, nontender. IMPRESSION: 1. Acute alcohol intoxication. 2. Hemoptysis. 3. Hematemesis. 4. Acute kidney injury. PLAN: Continue to monitor her renal function, which does seem to be improving. MMODL / IJN: [id number] /
--- NOTE | 2024-07-29 14:22 | DS ---
DISCHARGE SUMMARY CHIEF COMPLAINT: Acute alcohol intoxication and acute kidney injury. HISTORY OF PRESENT ILLNESS AND PHYSICAL EXAM: Details of this lady's history and physical can be found in the initial workup. LABORATORY STUDIES: While she was in the hospital, she had laboratory studies, details of which can be found in the laboratory section of her chart. COURSE IN HOSPITAL: After admission, she was placed on bedrest, started intravenous fluids and was followed by Nephrology. She was hydrated. She had some difficulty with DTs, but not significantly so. She improved and her BUN and creatinine were rising as was her GFR. It is felt that she could go home on the and will be followed as an outpatient. FINAL DIAGNOSES: 1. Acute alcohol intoxication. 2. Chronic alcoholism. 3. Acute kidney injury. 4. Delirium tremens. OPERATIONS: None. CONSULTATIONS: Nephrology. She is improved. KIRTI / GERI: [id number] /
[2024-07-29 14:28] LABS: Albumin 4.17 g/dL (3.80-4.90); Gamma Globulin 0.95 g/dL (0.70-1.50)
== END 2024-07-27 12:59 | disposition home or self-care (01) ==
LOC: EC 14:12 → 6NMEDSUR 16:33
PROVIDERS: ADMIT Family Medicine; ATTEND Family Medicine
DX: F10.229 Alcohol dependence with intoxication, unspecified (principal); F10.231 Alcohol dependence with withdrawal delirium; N17.0 Acute kidney failure with tubular necrosis; D64.9 Anemia, unspecified; E86.1 Hypovolemia; E87.21 Acute metabolic acidosis; J20.9 Acute bronchitis, unspecified; K92.0 Hematemesis; R91.1 Solitary pulmonary nodule; R16.0 Hepatomegaly, not elsewhere classified; K70.10 Alcoholic hepatitis without ascites; I10 Essential (primary) hypertension; K21.9 Gastro-esophageal reflux disease without esophagitis; F17.200 Nicotine dependence, unspecified, uncomplicated; Z79.899 Other long term (current) drug therapy; Z88.8 Allergy status to other drugs, medicaments and biological substances
CPT/HCPCS: 96376 ×5; 96375 ×2; 96372; 96374; 99285; 36415; 93005; 86255; 86160 ×2; 85379; 86162; 80053 ×3; 80048; 80074; 83516; 83735 ×2; 84100; 84484; 85025 ×2; 81001 ×2; 84703; 84165; 86038; 86225; 86334; 87636; 71046; 76770; 71275; G0378 ×4; J2060 ×3; J3411; J2405 ×2; Q9967; J2470 ×3

== ENCOUNTER 2024-08-22 10:24 | Emergency (ER) | payer OTHER ==
[2024-08-22 10:49] VITALS: RESP 18
--- NOTE | 2024-08-22 10:58 | ED ---
Alcohol HPI - General Chief Complaint: Alcohol Stated Complaint: ETOH Time Seen by Provider: 08/22/24 10:53 Source: patient, RN notes reviewed Mode of arrival: ambulatory Limitations: no limitations - History of Present Illness Initial Comments: 34-year-old female with history of alcohol abuse and kidney disease presents emergency department for complaints of alcohol withdrawal. Patient states that she currently drinks 2 pints of alcohol per day with her last drink being at a 100 this morning. Patient states that she feels that she is going through w ithdrawal she is very anxious and shaky. She endorses nausea and emesis this morning. Denies abdominal pain, urinary complaints. Denies drug use. Patient is quite tearful stating that she would like help to stop drinking. - Related Data Home Medications Medication Instructions Recorded Confirmed Folic Acid 1 mg PO DAILY 05/08/23 07/24/24 Pantoprazole [Protonix] 40 mg PO BID 05/08/23 07/24/24 Cyanocobalamin (Vitamin B-12) 1,000 mcg PO DAILY 07/24/24 07/24/24 [Vitamin B-12] Losartan [Cozaar] 50 mg PO DAILY 07/24/24 07/24/24 Previous Rx's Medication Instructions Recorded Thiamine [Vitamin B-1] 100 mg PO DAILY #30 tablet 05/08/23 Ondansetron Odt [Zofran Odt] 4 mg PO Q8HR PRN #10 tab 08/22/24 chlordiazePOXIDE HCl [Librium] 25 mg PO QID #20 capsule 08/22/24 Allergies Allergy/AdvReac Type Severity Reaction Status Date / Time ethinyl estradiol Allergy Unknown Verified 08/22/24 10:49 [From Loestrin 24 Fe] ferrous fumarate Allergy Unknown Verified 08/22/24 10:49 [From Loestrin 24 Fe] norethindrone acetate Allergy Unknown Verified 08/22/24 10:49 [From Loestrin 24 Fe] Review of Systems ROS Statement: Those systems with pertinent positive or pertinent negative responses have been documented in the HPI. ROS Other: All systems not noted in ROS Statement are negative. Past Medical History Past Medical History: GERD/Reflux, Hypertension, Liver Disease Additional Past Medical History / Comment(s): urgent care told pt she had an ulcer, alcohol hepatitis History of Any Multi-Drug Resistant Organisms: None Reported Past Surgical History: No Surgical Hx Reported Additional Past Surgical History / Comment(s): D&C Past Anesthesia/Blood Transfusion Reactions: No Reported Reaction, Unable to Obtain Past Psychological History: No Psychological Hx Reported Smoking Status: Current some day smoker Past Alcohol Use History: Abuse, Daily, Heavy Past Drug Use History: None Reported - Past Family History Mother Additional Family Medical History / Comment(s): spina bifida, depression, anxiety General Exam Limitations: no limitations General appearance: alert, anxious Respiratory exam: Present: normal lung sounds bilaterally. Absent: respiratory distress, wheezes, rales, rhonchi, stridor Cardiovascular Exam: Present: regular rate, normal rhythm, normal heart sounds. Absent: systolic murmur, diastolic murmur, rubs, gallop, clicks GI/Abdominal exam: Present: soft, normal bowel sounds. Absent: distended, tenderness, guarding, rebound, rigid Extremities exam: Present: normal inspection, full ROM, normal capillary refill. Absent: tenderness, pedal edema, joint swelling, calf tenderness Psychiatric exam: Present: normal affect, depressed, anxious Skin exam: Present: warm, dry, intact, normal color. Absent: rash Course Vital Signs 08/22/24 08/22/24 10:46 12:00 Temperature 98.6 F Pulse Rate 88 100 Respiratory 18 18 Rate Blood Pressure 135/66 128/78 O2 Sat by Pulse 100 98 Oximetry Medical Decision Making - Medical Decision Making Was pt. sent in by a medical professional or institution (NAVA Peña, FORENSIC PSYCHIATRIST, urgent care, hospital, or intermediate...) When possible be specific @ -No Did you speak to anyone other than the patient for history (EMS, parent, family, police, friend...)? What history was obtained from this source @ -No Did you review nursing and triage notes (agree or disagree)? Why? @ -I reviewed and agree with nursing and triage notes Were old charts reviewed (outside hosp., previous admission, EMS record, old EKG, old radiological studies, urgent care reports/EKG's, intermediate records)? Report findings @ -No old charts were reviewed Differential Diagnosis (chest pain, altered mental status, abdominal pain women, abdominal pain men, vaginal bleeding, weakness, fever, dyspnea, syncope, headache, dizziness, GI bleed, back pain, seizure, CVA, palpatations, mental health, musculoskeletal)? @ -Alcohol withdrawal, DTs, electrolyte abnormality, this list is not all inclusive EKG interpreted by me (3pts min.). @ -None X-rays interpreted by me (1pt min.). @ -None done CT interpreted by me (1pt min.). @ -None done U/S interpreted by me (1pt. min.). @ -None done What testing was considered but not performed or refused? (CT, X-rays, U/S, labs)? Why? @ -None What meds were considered but not given or refused? Why? @ -None Did you discuss the management of the patient with other professionals (professionals i.e. , PA, FORENSIC PSYCHIATRIST, lab, RT, psych nurse, social insurance adviser, instrument lens grinder apprentice, teacher, operational intelligence officer, vocational case manager)? Give summary @ -Spoke with case management, Haritha, who is aided in bridging patient to rehab. Patient states that she is scheduled for inpatient admission to [facility] on at 09 40 5 in the morning. Was smoking cessation discussed for >3mins.? @ -No Was critical care preformed (if so, how long)? @ -No Were there social determinants of health that impacted care today? How? (Homelessness, low income, unemployed, alcoholism, drug addiction, transportation, low edu. Level, literacy, decrease access to med. care, nursing home, rehab)? @ -No Was there de-escalation of care discussed even if they declined (Discuss DNR or withdrawal of care, Hospice)? DNR status @ -No What co-morbidities impacted this encounter? (DM, HTN, Smoking, COPD, CAD, Cancer, CVA, ARF, Chemo, Hep., AIDS, mental health diagnosis, sleep apnea, morbid obesity)? @ -None Was patient admitted / discharged? Hospital course, mention meds given and route, prescriptions, significant lab abnormalities, going to OR and other pertinent info. @Discharge. 34-year-old female presented to emergency department with complaints of alcohol withdrawal. On arrival patient is noted to be quite anxious and tremulous. She is provided with dose of Ativan and IV fluids. Laboratory testing reveals mild dehydration with a sodium of 133 likely secondary to chronic alcohol abuse. Hypomagnesemia of 1.3 (and is provided with oral resupplementation. Mild transaminitis with an AST of 141, ALT 69 and alkaline phosphatase of 164. Serum alcohol level of 11. Patient will be admitted to [facility] tomorrow for alcohol abuse. Patient is read with prescription for Zofran and Librium. Case discussed with Dr. Silverio Undiagnosed new problem with uncertain prognosis? @ -No Drug Therapy requiring intensive monitoring for toxicity (Heparin, Nitro, Insulin, Cardizem)? @ -No Were any procedures done? @ -No Diagnosis/symptom? @ -Alcohol abuse, transaminitis, hypomagnesemia, alcohol withdrawal Acute, or Chronic, or Acute on Chronic? @ -Acute Uncomplicated (without systemic symptoms) or Complicated (systemic symptoms)? @ -Complicated Side effects of treatment? @ -No Exacerbation, Progression, or Severe Exacerbation? @ -No Poses a threat to life or bodily function? How? (Chest pain, [place], [place], pneumonia, PE, COPD, DKA, ARF, appy, cholecystitis, CVA, Diverticulitis, Homicidal, Suicidal, threat to staff... and all critical care pts) @ -No - Lab Data Result diagrams: 08/22/24 11:19 08/22/24 11:08 Lab Results 08/22/24 08/22/24 Range/Units 11:08 11:19 WBC 4.92 (4.50-10.00) 10*3/uL RBC 3.40 L (4.10-5.20) 10*6/uL Hgb 10.4 L (12.0-15.0) g/dL Hct 30.0 L (37.2-46.3) % MCV 88.2 (80.0-97.0) fL MCH 30.6 (27.0-32.0) pg MCHC 34.7 (32.0-37.0) g/dL Plt Count 229 (140-440) 10*3/uL MPV 10.2 (9.5-12.2) fL Immature Gran % (Auto) 0.4 % Neutrophils % 63.3 % Lymphocytes % 26.2 % Monocytes % 8.3 % Eosinophils % 0.6 % Basophils % 1.2 % Immature Gran # 0.02 (0.00-0.04) 10*3/uL Neutrophils # 3.11 (1.80-7.70) 10*3/uL Lymphocytes # 1.29 (0.90-5.00) 10*3/uL Monocytes # 0.41 (0.20-1.00) 10*3/uL Eosinophils # 0.03 L (0.04-0.35) 10*3/uL Basophils # 0.06 (0.00-0.10) 10*3/uL Sodium 133 L (137-145) mmol/L Potassium 3.6 (3.5-5.1) mmol/L Chloride 97 L (98-107) mmol/L Carbon Dioxide 16 L (22-30) mmol/L Anion Gap 20 mmol/L BUN 9 (7-17) mg/dL Creatinine 2.04 H (0.52-1.04) mg/dL Est GFR (CKD-EPI)AfAm 35 (>60 ml/min/1.73 sqM) Est GFR (CKD-EPI)NonAf 31 (>60 ml/min/1.73 sqM) Glucose 228 H (74-99) mg/dL Calcium 9.4 (8.4-10.2) mg/dL Phosphorus 2.9 (2.5-4.5) mg/dL Magnesium 1.3 L (1.6-2.3) mg/dL Total Bilirubin 2.1 H (0.2-1.3) mg/dL AST 141 H (14-36) U/L ALT 69 H (4-34) U/L Alkaline Phosphatase 164 H (38-126) U/L Total Protein 8.2 (6.3-8.2) g/dL Albumin 4.8 (3.5-5.0) g/dL Lipase 139 (23-300) U/L Serum Alcohol 11 mg/dL Disposition Clinical Impression: Alcohol abuse Disposition: HOME SELF-CARE Condition: Stable Instructions (If sedation given, give patient instructions): Alcohol Withdrawal (ED) Additional Instructions: Please return to the Emergency Department if symptoms worsen or any other concerns. Follow-up tomorrow with [facility]. Prescriptions: chlordiazePOXIDE HCl [Librium] 25 mg PO QID #20 capsule Ondansetron Odt [Zofran Odt] 4 mg PO Q8HR PRN #10 tab PRN Reason: Nausea Is patient prescribed a controlled substance at d/c from ED?: No Referrals: Bobby Gallardo MD [Primary Care Provider] - 1-2 days Time of Disposition: 14:55
[2024-08-22] MEDS: LORazepam 2 MG/ML INJ IV STA (11:09)
[2024-08-22] MEDS: SODIUM CHLORIDE 0.9% 1,000 ML IV STA (11:10)
[2024-08-22 11:45] LABS: ALT 69 U/L (4-34); AST 141 U/L (14-36); African American GFR (CKD) 35 (>60 ml/min/1.73 sqM); Albumin 4.8 g/dL (3.5-5.0); Alcohol 11 mg/dL; Alkaline Phosphatase 164 U/L (38-126); Anion Gap 20 mmol/L; Blood Urea Nitrogen 9 mg/dL (7-17); Calcium 9.4 mg/dL (8.4-10.2); Carbon Dioxide 16 mmol/L (22-30); Chloride 97 mmol/L (98-107); Glucose 228 mg/dL (74-99); Lipase 139 U/L (23-300); Magnesium 1.3 mg/dL (1.6-2.3); Non-African American GFR(CKD) 31 (>60 ml/min/1.73 sqM); Phosphorus 2.9 mg/dL (2.5-4.5); Potassium 3.6 mmol/L (3.5-5.1); Sodium 133 mmol/L (137-145); Total Bilirubin 2.1 mg/dL (0.2-1.3); Total Protein 8.2 g/dL (6.3-8.2)
[2024-08-22 12:28] LABS: Basophils # (A) 0.06 10*3/uL (0.00-0.10); Basophils % (A) 1.2 %; Eosinophils # (A) 0.03 10*3/uL (0.04-0.35); Eosinophils % (A) 0.6 %; HGB 10.4 g/dL (12.0-15.0); Lymphocytes # (A) 1.29 10*3/uL (0.90-5.00); Lymphocytes % (A) 26.2 %; MCH 30.6 pg (27.0-32.0); MCHC 34.7 g/dL (32.0-37.0); MCV 88.2 fL (80.0-97.0); Mean Platelet Volume 10.2 fL (9.5-12.2); Monocytes # (A) 0.41 10*3/uL (0.20-1.00); Monocytes % (A) 8.3 %; Neutrophils # (A) 3.11 10*3/uL (1.80-7.70); Neutrophils % (A) 63.3 %; Platelet Count 229 10*3/uL (140-440); RDW 15.4 % (11.5-14.5); WBC 4.92 10*3/uL (4.50-10.00)
[2024-08-22] MEDS: MAGNESIUM OXIDE 400 MG TAB PO STA (13:06)
[2024-08-22 15:19] VITALS: BP 111/68; PULSE 90; TEMP 97.8
[2024-08-22 15:50] LABS: Appearance,Urine Clear (Clear); Bilirubin,Urine Negative (Negative); Blood,Urine Small (Negative); Color,Urine Light Yellow; Glucose,Urine (UA) 4+ (Negative); Ketones,Urine Negative (Negative); Leukocyte Esterase,Urine Negative (Negative); Nitrite,Urine Negative (Negative); Protein,Urine Trace (Negative); RBC,Urine <1 /hpf (0-5); Specific Gravity,Urine 1.007 (1.001-1.035); Squamous Epithelial Cell,Urine 1 /hpf (0-4); Urobilinogen,Urine <2.0 mg/dL (<2.0); WBC,Urine 4 /hpf (0-5)
== END 2024-08-22 15:19 | disposition home or self-care (01) ==
LOC: EC 10:24
DX: F10.130 Alcohol abuse with withdrawal, uncomplicated (principal); E83.42 Hypomagnesemia; R74.01 Elevation of levels of liver transaminase levels; F17.200 Nicotine dependence, unspecified, uncomplicated; Z88.8 Allergy status to other drugs, medicaments and biological substances; Y90.0 Blood alcohol level of less than 20 mg/100 ml
CPT/HCPCS: 36415; 80053; 83690; 83735; 84100; 85025; 81001; 99284; 96374; 96361; G0480; J2060; 80320